=== PATIENT | female | born 1940 | race Caucasian/White ===

== ENCOUNTER → 2016-11-06 | Outpatient (REF) | payer OTHER ==
[~2016-11-06] MED LIST: /HCTZ25TA PO; ASPI325T PO; FOSI20TA2 PO; MELO7.5T3 PO; MULTTAB48 PO; MULTTAB63 PO; VYTO10TA41 PO
[2016-11-06 12:08] LABS: BASO % 0.3 % (0.0-1.0); EOS # 0.1 K/mm3 (0.0-0.50); EOS % 1.1 % (0.0-3.0); LARGE UNSTAINED CELL # 0.1 K/mm3 (0.0-0.4); LYMPH # 2.4 K/mm3 (1.5-4.5); LYMPH % 21.3 % (24.0-44.0); MEAN CORPUSCULAR HEMOGLOBIN 31.8 pg (27.0-33.0); MEAN CORPUSCULAR HGB CONC 33.3 g/dl (32.0-36.5); MEAN CORPUSCULAR VOLUME 95.4 fl (80.0-96.0); MONO # 0.5 K/mm3 (0.0-0.8); MONO % 4.2 % (0.0-5.0); NEUTROPHILS # 7.8 K/mm3 (1.8-7.7); NEUTROPHILS % 72.1 % (36.0-66.0); PLATELET COUNT, AUTOMATED 220 k/mm3 (150-450); RED CELL DISTRIBUTION WIDTH 13.9 % (11.5-14.5); WHITE BLOOD COUNT 10.8 K/mm3 (4.0-10.0)
[2016-11-06 13:52] LABS: ALBUMIN 3.8 GM/DL (3.2-5.2); ALBUMIN/GLOBULIN RATIO 1.03 (1.00-1.93); BILIRUBIN,TOTAL 0.6 MG/DL (0.2-1.0); CALCIUM LEVEL 10.2 MG/DL (8.8-10.2); CREATININE FOR GFR 1.42 MG/DL (0.55-1.02); GLOMERULAR FILTRATION RATE 38.1 (>39); MAGNESIUM LEVEL 2.1 MG/DL (1.8-2.4); PERCENT SATURATION 33.7 % (13.2-37.4); POTASSIUM SERUM 3.8 MEQ/L (3.5-5.1); TOTAL PROTEIN 7.5 GM/DL (6.4-8.2)
== END ==
LOC: M SFHCPLAZ 09:09
PROVIDERS: ATTEND Family Medicine
DX: I12.9 Hypertensive chronic kidney disease with stage 1 through stage 4 chronic kidney disease, or unspecified chronic kidney disease (principal); I50.9 Heart failure, unspecified; N18.3 Chronic kidney disease, stage 3 (moderate); E55.9 Vitamin D deficiency, unspecified
CPT/HCPCS: 36415; 80053; 82306; 82728; 83550; 83735; 83880; 83970; 85025; G0463

== ENCOUNTER → 2017-04-01 | Outpatient (REF) | payer OTHER ==
[2017-04-01 11:58] LABS: BASO % 0.3 % (0.0-1.0); EOS # 0.1 K/mm3 (0.0-0.50); LARGE UNSTAINED CELL # 0.1 K/mm3 (0.0-0.4); LARGE UNSTAINED CELL % 0.9 % (0.0-4.0); LYMPH # 2.8 K/mm3 (1.5-4.5); LYMPH % 26.2 % (24.0-44.0); MEAN CORPUSCULAR HEMOGLOBIN 32.1 pg (27.0-33.0); MEAN CORPUSCULAR HGB CONC 33.8 g/dl (32.0-36.5); MEAN CORPUSCULAR VOLUME 94.9 fl (80.0-96.0); MONO # 0.4 K/mm3 (0.0-0.8); MONO % 4.1 % (0.0-5.0); NEUTROPHILS # 6.9 K/mm3 (1.8-7.7); NEUTROPHILS % 67.5 % (36.0-66.0); PLATELET COUNT, AUTOMATED 251 k/mm3 (150-450); RED CELL DISTRIBUTION WIDTH 13.6 % (11.5-14.5); WHITE BLOOD COUNT 10.2 K/mm3 (4.0-10.0)
[2017-04-01 12:42] LABS: ALBUMIN 3.7 GM/DL (3.2-5.2); BILIRUBIN,TOTAL 0.7 MG/DL (0.2-1.0); CREATININE FOR GFR 1.23 MG/DL (0.55-1.02); GLOMERULAR FILTRATION RATE 44.8 (>39); POTASSIUM SERUM 4.3 MEQ/L (3.5-5.1); TOTAL PROTEIN 7.4 GM/DL (6.4-8.2)
== END ==
LOC: M SFHCPLAZ 09:03
PROVIDERS: ATTEND Family Medicine
DX: R73.01 Impaired fasting glucose (principal); I12.9 Hypertensive chronic kidney disease with stage 1 through stage 4 chronic kidney disease, or unspecified chronic kidney disease; N18.3 Chronic kidney disease, stage 3 (moderate)
CPT/HCPCS: 36415; 80053; 82607; 83036; 83970; 85025; G0463

== ENCOUNTER → 2017-08-02 | Outpatient (REF) | payer OTHER ==
[~2017-08-02] MED LIST changes: +AMLO2.5T PO; +AMLO5TAB2; +ASPI81CH PO; +ATOR40TA75 PO; +CIPR500T3 PO; +ELIQ5TAB PO; +FLAG500T PO; +FOSI40TA PO; +FURO40TA2 PO; +HYDR-3713 PO; +METO1TAB32 PO; +METO1TAB87 PO; +POTA10TA16 PO; +RA A; +VITA200015 PO; +VITMTA PO
[2017-08-02 16:21] LABS: BASO % 0.4 % (0.0-1.0); EOS # 0.1 10^3/uL (0.0-0.50); EOS % 0.9 % (0.0-3.0); IMMATURE GRANULOCYTE % 0.3 % (0-0); LYMPH # 3.1 10^3/uL (1.5-4.5); LYMPH % 29.7 % (24.0-44.0); MEAN CORPUSCULAR HEMOGLOBIN 30.9 pg (27.0-33.0); MEAN CORPUSCULAR HGB CONC 32.9 g/dl (32.0-36.5); MONO # 0.8 10^3/uL (0.0-0.8); MONO % 7.6 % (0.0-5.0); NEUTROPHILS # 6.5 10^3/uL (1.8-7.7); NEUTROPHILS % 61.1 % (36.0-66.0); PLATELET COUNT, AUTOMATED 298 10^3/uL (150-450); RED CELL DISTRIBUTION WIDTH 13.4 % (11.5-14.5); WHITE BLOOD COUNT 10.6 10^3/uL (4.0-10.0)
[2017-08-02 17:06] LABS: ALBUMIN 3.5 GM/DL (3.2-5.2); ALKALINE PHOSPHATASE 109 U/L (45-117); ALT/SGPT 18 U/L (12-78); ANION GAP 10 MEQ/L (8-16); AST/SGOT 14 U/L (7-37); BILIRUBIN,TOTAL 0.5 MG/DL (0.2-1.0); BLOOD UREA NITROGEN 26 MG/DL (7-18); CALCIUM LEVEL 9.7 MG/DL (8.8-10.2); CARBON DIOXIDE LEVEL 27 MEQ/L (21-32); CHLORIDE LEVEL 101 MEQ/L (98-107); CHOLESTEROL LEVEL 162 MG/DL (<200); CREATININE FOR GFR 1.24 MG/DL (0.55-1.02); FREE T4 1.29 NG/DL (0.76-1.46); GLOMERULAR FILTRATION RATE 44.4 (>39); GLUCOSE, FASTING 101 MG/DL (83-110); MAGNESIUM LEVEL 2.1 MG/DL (1.8-2.4); POTASSIUM SERUM 3.9 MEQ/L (3.5-5.1); SODIUM LEVEL 138 MEQ/L (136-145); TRIGLYCERIDES LEVEL 68 MG/DL (<150)
[2017-08-06 10:59] LABS: ALBUMIN 3.61 GM/DL (3.29-5.55); ALBUMIN % 51.6 % (55.8-66.1); GAMMA GLOBULIN % 16.5 % (11.1-18.8)
== END ==
LOC: M SFHCPLAZ 14:43
PROVIDERS: ATTEND Family Medicine
DX: E78.2 Mixed hyperlipidemia (principal); D75.89 Other specified diseases of blood and blood-forming organs; I50.9 Heart failure, unspecified; Z23 Encounter for immunization
CPT/HCPCS: 36415; 80053; 80061; 82550; 83735; 83880; 84165; 84439; 84443; 85025; 86140; 86334; 90662; G0463

== ENCOUNTER → 2017-08-06 | Outpatient (REF) | payer OTHER ==
[2017-08-06 16:28] LABS: ALBUMIN 3.8 GM/DL (3.2-5.2); ANION GAP 9 MEQ/L (8-16); BLOOD UREA NITROGEN 42 MG/DL (7-18); CALCIUM LEVEL 10.1 MG/DL (8.8-10.2); CARBON DIOXIDE LEVEL 32 MEQ/L (21-32); CHLORIDE LEVEL 98 MEQ/L (98-107); CREATININE FOR GFR 1.52 MG/DL (0.55-1.02); GLOMERULAR FILTRATION RATE 35.1 (>39); GLUCOSE, FASTING 112 MG/DL (83-110); MAGNESIUM LEVEL 2.4 MG/DL (1.8-2.4); PHOSPHORUS LEVEL 3.8 MG/DL (2.5-4.9); POTASSIUM SERUM 3.5 MEQ/L (3.5-5.1); SODIUM LEVEL 139 MEQ/L (136-145)
== END ==
LOC: M SFHCPLAZ 14:11
PROVIDERS: ATTEND Family Medicine
DX: I48.91 Unspecified atrial fibrillation (principal)
CPT/HCPCS: 36415; 80069; 82550; 82553; 83735; 83880; 84484; 93005; G0463

== ENCOUNTER → 2017-08-09 | Outpatient (REF) | payer OTHER ==
[~2017-08-09] MED LIST changes: -CIPR500T3 PO; -FLAG500T PO; -METO1TAB32 PO
[2017-08-09 14:17] LABS: BASO % 0.4 % (0.0-1.0); EOS # 0.1 10^3/uL (0.0-0.50); EOS % 0.6 % (0.0-3.0); IMMATURE GRANULOCYTE % 0.2 % (0-0); LYMPH # 3.4 10^3/uL (1.5-4.5); LYMPH % 30.7 % (24.0-44.0); MEAN CORPUSCULAR HEMOGLOBIN 30.9 pg (27.0-33.0); MEAN CORPUSCULAR HGB CONC 33.6 g/dl (32.0-36.5); MONO # 0.8 10^3/uL (0.0-0.8); NEUTROPHILS # 6.7 10^3/uL (1.8-7.7); NEUTROPHILS % 61.1 % (36.0-66.0); PLATELET COUNT, AUTOMATED 297 10^3/uL (150-450); RED CELL DISTRIBUTION WIDTH 13.5 % (11.5-14.5)
[2017-08-09 14:45] LABS: ALBUMIN 3.6 GM/DL (3.2-5.2); CALCIUM LEVEL 10.1 MG/DL (8.8-10.2); CREATININE FOR GFR 1.49 MG/DL (0.55-1.02); GLOMERULAR FILTRATION RATE 35.9 (>39); MAGNESIUM LEVEL 2.5 MG/DL (1.8-2.4); PERCENT SATURATION 18.2 % (13.2-45.0); PHOSPHORUS LEVEL 3.5 MG/DL (2.5-4.9); POTASSIUM SERUM 3.4 MEQ/L (3.5-5.1)
== END ==
LOC: M SFHCPLAZ 13:24
PROVIDERS: ATTEND Family Medicine
DX: D75.89 Other specified diseases of blood and blood-forming organs (principal); I12.9 Hypertensive chronic kidney disease with stage 1 through stage 4 chronic kidney disease, or unspecified chronic kidney disease; N18.3 Chronic kidney disease, stage 3 (moderate); I25.10 Atherosclerotic heart disease of native coronary artery without angina pectoris; I50.9 Heart failure, unspecified; I49.9 Cardiac arrhythmia, unspecified; E78.2 Mixed hyperlipidemia; M19.019 Primary osteoarthritis, unspecified shoulder; R73.01 Impaired fasting glucose; E55.9 Vitamin D deficiency, unspecified; E66.9 Obesity, unspecified; R27.0 Ataxia, unspecified
CPT/HCPCS: 80069; 82728; 83550; 83735; 85025; G0463

== ENCOUNTER 2017-08-18 17:52 | Inpatient (IN) | payer OTHER ==
[~2017-08-18] VITALS: Ht 152.4 cm; Wt 86.9 kg
[~2017-08-18 17:52] MED LIST changes: -AMLO2.5T PO; -AMLO5TAB2; -ASPI81CH PO; -ATOR40TA75 PO; -ELIQ5TAB PO; -FOSI40TA PO; -FURO40TA2 PO; -HYDR-3713 PO; -METO1TAB87 PO; -POTA10TA16 PO; -RA A; -VITA200015 PO; -VITMTA PO
[2017-08-18] MEDS ORDERED: FURO40TA2 PO (18:06)
[2017-08-18] MEDS ORDERED: ELIQ5TAB PO (18:06)
[2017-08-18] MEDS ORDERED: ATOR40TA75 PO (18:06)
[2017-08-18] MEDS ORDERED: RA A (18:06)
[2017-08-18] MEDS ORDERED: HYDR-3713 PO (18:06)
[2017-08-18] MEDS ORDERED: METO1TAB87 PO (18:06)
[2017-08-18] MEDS ORDERED: AMLO5TAB2 (18:06)
[2017-08-18] MEDS ORDERED: POTA10TA16 PO (18:06)
[2017-08-18] MEDS ORDERED: AMLO2.5T PO (18:06)
[2017-08-18 18:29] LABS: BASO % 0.3 % (0.0-1.0); EOS # 0.1 10^3/uL (0.0-0.50); EOS % 0.6 % (0.0-3.0); IMMATURE GRANULOCYTE % 0.3 % (0-0); LYMPH # 2.7 10^3/uL (1.5-4.5); LYMPH % 23.8 % (24.0-44.0); MEAN CORPUSCULAR HEMOGLOBIN 30.8 pg (27.0-33.0); MEAN CORPUSCULAR HGB CONC 33.9 g/dl (32.0-36.5); MEAN CORPUSCULAR VOLUME 90.9 fl (80.0-96.0); MONO # 0.9 10^3/uL (0.0-0.8); MONO % 7.6 % (0.0-5.0); NEUTROPHILS # 7.5 10^3/uL (1.8-7.7); NEUTROPHILS % 67.4 % (36.0-66.0); PLATELET COUNT, AUTOMATED 264 10^3/uL (150-450); RED CELL DISTRIBUTION WIDTH 13.3 % (11.5-14.5); WHITE BLOOD COUNT 11.1 10^3/uL (4.0-10.0)
[2017-08-18 18:38] LABS: INR 1.33
[2017-08-18 18:51] LABS: ALBUMIN 3.3 GM/DL (3.2-5.2); ALBUMIN/GLOBULIN RATIO 0.8 (1.00-1.93); BILIRUBIN,DIRECT 0.1 MG/DL (0.0-0.2); BILIRUBIN,TOTAL 0.5 MG/DL (0.2-1.0); CALCIUM LEVEL 9.8 MG/DL (8.8-10.2); CREATININE FOR GFR 1.25 MG/DL (0.55-1.02); POTASSIUM SERUM 3.9 MEQ/L (3.5-5.1); TOTAL PROTEIN 7.4 GM/DL (6.4-8.2)
[2017-08-18] MEDS ORDERED: ISOVUE-370 76% 100ML VIAL (Q9967) As Ordered ONE (18:51)
--- NOTE | 2017-08-18 19:19 | REP ---
Clinical: Left-sided abdominal and flank pain. Technique: Axial contrast enhanced images from the lung bases to the pubic symphysis using 100 ml Isovue 370 intravenous contrast material with coronal and sagittal re-formations. Findings: Lung bases demonstrate minimal chronic and dependent changes without pleural effusion. Cardiomegaly is appreciated without pericardial effusion. Liver, spleen, pancreas, bilateral adrenal glands and kidneys are essentially normal. 1.2 cm left renal hypodensities compatible with cyst. Cholelithiasis noted without CT evidence for acute cholecystitis. There is no evidence for bowel obstruction. Diffuse colonic and sigmoid diverticulosis noted along with mural thickening of the mid sigmoid colon which may reflect early acute diverticulitis versus chronic changes related to prior diverticulitis. No associated ascites or drainable collection. No free air. No significant intraperitoneal or retroperitoneal adenopathy is appreciated. Pelvis demonstrates normal bladder and evidence for prior hysterectomy. Musculoskeletal structures demonstrate age-related degenerative changes without focal osseous abnormality. Atherosclerotic changes of the aorta and vasculature without aneurysm or dissection. Impression: 1. Diffuse diverticulosis along with mural thickening to the midsigmoid colon may reflect chronic changes related to prior diverticulitis versus early sigmoid diverticulitis and correlation is recommended. No associated free fluid or drainable collection. No perforation or obstruction. 2. Cholelithiasis. 3. 1.2 cm left renal cyst. 4. Further chronic changes as described above. Signed by Berny Davis MD 08/18/2017 07:10 P
[2017-08-18] MEDS ORDERED: ONDANSETRON 4MG/2ML VIAL (J2405) IV ONE (20:00)
[2017-08-18] MEDS ORDERED: metroNIDAZOLE 500 MG in APPROPRIATE DILUENT 1 EA IV ONE (20:00)
[2017-08-18] MEDS ORDERED: MORPHINE 2 MG/ML 1ML SYRINGE IV ONE (20:00)
[2017-08-18] MEDS ORDERED: CIPROFLOXACIN 400 MG in APPROPRIATE DILUENT 1 EA IV ONE (20:00)
[2017-08-18] MEDS ORDERED: ASPI81CH PO (21:26)
[2017-08-18] MEDS ORDERED: FOSI40TA PO (21:26)
[2017-08-18] MEDS ORDERED: VITMTA PO (21:26)
[2017-08-18] MEDS ORDERED: VITA200015 PO (21:27)
[2017-08-18] MEDS ORDERED: NS 500 ML IV ONE (22:00)
[2017-08-18] MEDS ORDERED: PIPERACILLIN/TAZOBACTAM SOD 3.375 GM in APPROPRIATE DILUENT 1 EA IV ONE (23:15)
[2017-08-18 23:59] VITALS: BP 108/73
--- NOTE | 2017-08-19 00:48 | HPE ---
DATE OF ADMISSION: 08/18/2017 The patient, Rosaura Krishna, is a 77-year-old female. The patient comes in with chief complaint of abdominal pain. Patient notes she has been having some abdominal pain for the last couple of days. She says that it has been going on more generally for the last week; however, it has gotten much worse in the last day on the left side. Patient's CT shows diverticulitis. Patient being admitted for, however, orthostatic hypotension. Patient says their belly hurts so they are unable to walk and unable to go home. Patient denies any blood in stool, any vomiting, nausea, constipation or diarrhea. Patient without any constitutional symptoms at this time. REVIEW OF SYSTEMS: Patient notes that her other acute complaints are that it hurts her to walk with the abdominal pain, so she is unable to walk. No other acute complaints. Patient's past medical history includes hypertension, first-degree atrioventricular (AV) block, coronary artery disease, hyperlipidemia, bilateral knee arthritis, impaired fasting glucose, mitral regurgitation. The patient is a nonsmoker, does not drink or use drugs. Patient does not note any significant family history. PHYSICAL EXAMINATION: Patient is resting comfortably when I came in. Vital signs: 97.7 temperature, pulse is 88, respiratory rate 18, blood pressure 143/89, pulse oximetry is 95% on room air. Patient is alert and oriented times three with normal affect and normal mood. Cranial nerves II-XII grossly intact. Patient unable to see with left eye. Patient with good sight in right eye. Patient with grossly normal hearing. ENT normal to inspection. Neck is without rigidity. No meningeal signs. Abdomen is soft, some tenderness on the left. No rigidity or guarding. Patient with strength 5/5 in all four extremities. LABORATORY RESULTS: WBC 11.1, hemoglobin and hematocrit and platelets within normal limits. Coagulation shows PT 16.8, INR 1.33, aPTT 33.7. Chemistry shows sodium 135, potassium 3.9, chloride 97, carbon dioxide 30, BUN/creatinine 29/1.25, fasting glucose is 121, lactic acid 2.0. Urinalysis consistent with a UTI. WBC 58, urine leukocyte esterase is +3, nitrites negative. IMAGING: Abdominal, pelvic CT: Diffuse diverticulosis along with mural thickening of the midsigmoid colon may reflect chronic changes related to prior diverticulitis versus early sigmoid diverticulitis and correlation is recommended. No associated free fluid or drainable collection. No perforation or obstruction, cholelithiasis, 1.2 cm left renal cyst. Further chronic changes as described. ASSESSMENT AND PLAN: Patient is a 77-year-old female with previous medical history noted above, who comes in with complaints of abdominal pain and difficulty ambulating secondary to abdominal pain. Patient to be admitted under the impression of diverticulitis with the added impression of urinary tract infection. Patient started on Cipro, Flagyl. Will continue that. Should give reasonable coverage to both urinary tract infection (UTI) and diverticulitis. Intravenous (IV) fluids to treat patient's orthostatic hypotension to be started in the emergency department (ED) to be continued. Patient does not meet sepsis criteria. Will hold patient's hypertensive medications at this time secondary to orthostatic hypotension. Diuretics to be held secondary to hypotension. Continue patient's home Eliquis. Will also serve as deep venous thrombosis (DVT) prophylaxis. Patient is unclear why she is taking it. This may be secondary to patient's coronary artery disease versus other possible reasons. Patient's family medicine team will be taking over in the morning. They have access to patient's outpatient records, may be able to shed light on issue. Hyperlipidemia. Continue patient's statins. DVT prophylaxis. On Eliquis as noted above. Gastrointestinal (GI) prophylaxis. Proton pump inhibitors (PPIs). Patient to be held for continued observation. Continue IV antibiotics for now. May switch to orals. Discharge on orals when patient able to walk.
[2017-08-19] MEDS: NS 1,000 ML IV SCH ×3 (01:02→22:40)
[2017-08-19 06:00] VITALS: BP 117/61
[2017-08-19 07:31] LABS: ALBUMIN 2.7 GM/DL (3.2-5.2); ALBUMIN/GLOBULIN RATIO 0.87 (1.00-1.93); BILIRUBIN,TOTAL 0.7 MG/DL (0.2-1.0); CALCIUM LEVEL 9.2 MG/DL (8.8-10.2); CREATININE FOR GFR 1.14 MG/DL (0.55-1.02); GLOMERULAR FILTRATION RATE 48.9 (>39); POTASSIUM SERUM 3.8 MEQ/L (3.5-5.1); TOTAL PROTEIN 5.8 GM/DL (6.4-8.2)
[2017-08-19 07:52] VITALS: BP 129/69
[2017-08-19 08:00] VITALS: BP 129/69
[2017-08-19] MEDS ORDERED: CIPROFLOXACIN 400 MG in APPROPRIATE DILUENT 1 EA IV ONE (09:00)
--- NOTE | 2017-08-19 09:13 | ECGEPIP ---
Stationary ECG Study [facility] - ED Test Date: 2017-08-18 Pat Name: OMI SAENZ Department: Room: [place] [address] Gender: F Medic Technician: hermes : [id number] Requested By: RENETTA Veronica Order Number: [id number] Reading MD: Quinton Bryan Measurements Intervals [place] Rate: 84 P: AK: 0 QRS: 22 QRSD: 87 T: 13 QT: 382 QTc: 454 Interpretive Statements ATRIAL FIBRILLATION WITH ABERRANT CONDUCTION OR VENTRICULAR PREMATURE COMPLEXES LOW QRS VOLTAGE IN PRECORDIAL LEADS POOR R WAVE PROGRESSION RHYTHM CHANGE COMPARED TO 07/11/12 Electronically Signed On 08-19-2017 9:13:26 EST by Quinton Bryan
[2017-08-19] MEDS ORDERED: ACETAMINOPHEN TAB 650MG DOSE (2X325MG) PO PRN (09:45)
--- NOTE | 2017-08-19 09:58 | IPNPDOC ---
Subjective Date Seen The patient was seen on 08/19/17. Subjective Chief Complaint/HPI The patient is a 77-year-old female admitted with a reason for visit of Left Flank Pain. Constitutional: Denies: Chills ENT: Denies: Head Aches Pulmonary: Denies: Dyspnea, Cough Cardiovascular: Denies: Chest Pain, Palpitations Gastrointestinal: Reports: Abdominal Pain Genitourinary: Denies: Dysuria, Frequency Musculoskeletal: Reports: Leg Pain (calf pain/spasm) Psych: Reports: Mood Normal Objective Physical Examination General Exam: Positive: Alert, Cooperative ENT Exam: Positive: Atraumatic Neck Exam: Positive: Supple, Negative: thyromegaly Chest Exam: Positive: Clear to auscultation Heart Exam: Positive: Rate Normal, Normal S1, Normal S2, Negative: Murmurs Abdomen Exam: Positive: BS Hypoactive, Tenderness (mildly diffusely, but especially RLQ and LUQ, not distended. no rebound tenderness and no heel tap tenderness) Skin Exam: Negative: Rash Psych Exam: Positive: Mental status NL Assessment /Plan Problems (1) Diverticulitis Status: Acute Response to Treatment: Stable Problem Text: will allow diet. IV metronidazole and cipro. monitor for improvement. if not able to ambulate and change to po meds for discharge then will need status change to "acute" tomorrow. (2) Inability to walk Status: Acute Problem Text: she has lumbar scoliosis. no localizing pain to palpation. able to move legs, toes w/o evidence for muscular weakness. limited it seems by abdominal discomfort (3) UTI (urinary tract infection) Status: Acute Response to Treatment: Stable Problem Text: culture pending. on cipro and flagyl for diverticulitis. cipro will likely cover. she denies dysuria Plan/VTE VTE Prophylaxis Ordered?: Yes Plan Diet: Continue Current Therapy: PT Medications: Start Antibiotics Diagnostics: Check Labs Anticipated Discharge: Home VS, I&O, 24H, [facility]onica Vital Signs/I&O Vital Signs Date Time Temp Pulse Resp B/P (MAP) Pulse Ox O2 Delivery O2 Flow Rate FiO2 08/19/17 07:52 98.7 79 16 129/69 (89) Room Air 08/19/17 06:00 96 I&O- Last 24 Hours up to 6 AM 08/20/17 06:00 Intake Total 500 ml Balance 500 ml Laboratory Data 24H LABS Laboratory Tests 2 08/18/17 18:17: Immature Granulocyte % (Auto) 0.3H, White Blood Count 11.1H, Red Blood Count 4.06, Hemoglobin 12.5, Hematocrit 36.9, Mean Corpuscular Volume 90.9, Mean Corpuscular Hemoglobin 30.8, Mean Corpuscular Hemoglobin Concent 33.9, Red Cell Distribution Width 13.3, Platelet Count 264, Neutrophils (%) (Auto) 67.4H, Lymphocytes (%) (Auto) 23.8L, Monocytes (%) (Auto) 7.6H, Eosinophils (%) (Auto) 0.6, Basophils (%) (Auto) 0.3, Neutrophils # (Auto) 7.5, Lymphocytes # (Auto) 2.7, Monocytes # (Auto) 0.9H, Eosinophils # (Auto) 0.1, Basophils # (Auto) 0.0, Immature Granulocyte # (Auto) 0.0, Nucleated Red Blood Cells % (auto) 0.0, Prothrombin Time 16.8H, Prothromb Time International Ratio 1.33, Activated Partial Thromboplast Time 33.7, Anion Gap 8, Glomerular Filtration Rate 44.0, Lactic Acid Level 2.0, Calcium Level 9.8, Aspartate Amino Transf (AST/SGOT) 11, Alanine Aminotransferase (ALT/SGPT) 16, Alkaline Phosphatase 104, Total Bilirubin 0.5, Direct Bilirubin 0.1, Total Protein 7.4, Albumin 3.3, Albumin/ Globulin Ratio 0.80L, Lipase 150 08/18/17 19:57: Urine Appearance HAZY, Urine Color YELLOW, Urine pH 6.0, Urine Specific Andrews 1.019, Urine Protein NEGATIVE, Urine Glucose (UA) NEGATIVE, Urine Ketones NEGATIVE, Urine Urobilinogen 0.2, Urine Bilirubin NEGATIVE, Urine Leukocyte Esterase 3+H, Urine Blood NEGATIVE, Urine Nitrite NEGATIVE, Urine WBC (Auto) 58H , Urine RBC (Auto) 5H, Urine Hyaline Casts (Auto) 1, Urine Bacteria (Auto) 1+H, Urine Squamous Epithelial Cells 3, Urine Amorphous Sediment SMALLH, Urine Mucus (Auto) SMALL, Urine Sperm (Auto) 08/19/17 06:15: Anion Gap 8, Glomerular Filtration Rate 48.9, Calcium Level 9.2, Aspartate Amino Transf (AST/SGOT) 11, Alanine Aminotransferase (ALT/SGPT) 11L, Alkaline Phosphatase 91, Total Bilirubin 0.7, Total Protein 5.8#L, Albumin 2.7L, Albumin/ Globulin Ratio 0.87L, Blood Urea Nitrogen 20H, Creatinine 1.14H, Sodium Level 140, Potassium Level 3.8, Chloride Level 103, Carbon Dioxide Level 29 CBC/BMP Laboratory Tests 08/18/17 18:17 Red Blood Count 4.06, Mean Corpuscular Volume 90.9, Mean Corpuscular Hemoglobin 30.8, Mean Corpuscular Hemoglobin Concent 33.9, Red Cell Distribution Width 13.3 , Neutrophils (%) (Auto) 67.4 H, Lymphocytes (%) (Auto) 23.8 L, Monocytes (%) ( Auto) 7.6 H, Eosinophils (%) (Auto) 0.6, Basophils (%) (Auto) 0.3, Neutrophils # (Auto) 7.5, Lymphocytes # (Auto) 2.7, Monocytes # (Auto) 0.9 H, Eosinophils # (Auto) 0.1, Basophils # (Auto) 0.0 08/19/17 06:15 Calcium Level 9.2, Aspartate Amino Transf (AST/SGOT) 11, Alanine Aminotransferase (ALT/SGPT) 11 L, Alkaline Phosphatase 91, Total Bilirubin 0.7, Total Protein 5.8 #L, Albumin 2.7 L Nolan Maciel MD Aug 19, 2017 09:58
[2017-08-19] MEDS: MULTIVITAMINS/MINERALS THERAP 1 TAB PO SCH (10:11)
[2017-08-19] MEDS: POTASSIUM CHLORIDE 10 MEQ SR TABLET PO SCH ×2 (10:12→18:23)
[2017-08-19] MEDS: VITAMIN D 1,000 INTERNATIONAL UNITS TABLET PO SCH (10:12)
[2017-08-19] MEDS: ASPIRIN 81 MG CHEW TABLET PO SCH (10:12)
[2017-08-19] MEDS: APIXABAN 5 MG TAB (ELIQUIS) PO SCH ×2 (10:13→20:13)
[2017-08-19] MEDS: ATORVASTATIN 20 MG TAB PO SCH (10:13)
[2017-08-19] MEDS: NYSTATIN 100,000 UNITS/GM TOPICAL PWD 15 GM TOP SCH ×2 (10:36→20:13)
[2017-08-19] MEDS: metroNIDAZOLE 500 MG in APPROPRIATE DILUENT 1 EA IV SCH ×2 (11:59→18:23)
[2017-08-19 14:45] VITALS: BP 114/74
[2017-08-19 22:00] VITALS: BP 133/93
[2017-08-19] MEDS: CIPROFLOXACIN 400 MG in APPROPRIATE DILUENT 1 EA IV SCH (22:40)
[2017-08-20] MEDS: metroNIDAZOLE 500 MG in APPROPRIATE DILUENT 1 EA IV SCH ×2 (03:33→12:11)
[2017-08-20 06:00] VITALS: BP 120/85
[2017-08-20 07:43] LABS: BASO % 0.4 % (0.0-1.0); EOS # 0.1 10^3/uL (0.0-0.50); EOS % 1.3 % (0.0-3.0); IMMATURE GRANULOCYTE % 0.1 % (0-0); LYMPH # 1.7 10^3/uL (1.5-4.5); LYMPH % 22.1 % (24.0-44.0); MEAN CORPUSCULAR HEMOGLOBIN 31.3 pg (27.0-33.0); MEAN CORPUSCULAR HGB CONC 33.2 g/dl (32.0-36.5); MEAN CORPUSCULAR VOLUME 94.2 fl (80.0-96.0); MONO # 0.5 10^3/uL (0.0-0.8); MONO % 6.9 % (0.0-5.0); NEUTROPHILS # 5.4 10^3/uL (1.8-7.7); NEUTROPHILS % 69.2 % (36.0-66.0); PLATELET COUNT, AUTOMATED 211 10^3/uL (150-450); RED CELL DISTRIBUTION WIDTH 13.6 % (11.5-14.5); WHITE BLOOD COUNT 7.8 10^3/uL (4.0-10.0)
[2017-08-20 08:08] LABS: ALBUMIN 2.6 GM/DL (3.2-5.2); ALBUMIN/GLOBULIN RATIO 0.87 (1.00-1.93); ALKALINE PHOSPHATASE 77 U/L (45-117); ALT/SGPT 11 U/L (12-78); ANION GAP 7 MEQ/L (8-16); AST/SGOT 12 U/L (7-37); BILIRUBIN,TOTAL 0.5 MG/DL (0.2-1.0); BLOOD UREA NITROGEN 15 MG/DL (7-18); CALCIUM LEVEL 8.5 MG/DL (8.8-10.2); CARBON DIOXIDE LEVEL 28 MEQ/L (21-32); CHLORIDE LEVEL 105 MEQ/L (98-107); CREATININE FOR GFR 0.89 MG/DL (0.55-1.02); GLOMERULAR FILTRATION RATE > 60.0 (>39); GLUCOSE, FASTING 102 MG/DL (83-110); SODIUM LEVEL 140 MEQ/L (136-145); TOTAL PROTEIN 5.6 GM/DL (6.4-8.2)
--- NOTE | 2017-08-20 08:53 | IPNPDOC ---
Subjective Date Seen The patient was seen on 08/20/17. Subjective Chief Complaint/HPI The patient is a 77-year-old female admitted with a reason for visit of Left Flank Pain. Events since last encounter Tolerating small meals. Abd pain improving. No BM since admission Constitutional: Denies: Chills, Fever Pulmonary: Denies: Dyspnea, Cough Cardiovascular: Denies: Chest Pain, Palpitations, Orthopnea Gastrointestinal: Reports: Abdominal Pain (mild), Denies: Nausea, Vomiting, Diarrhea, Constipation Objective Physical Examination General Exam: Positive: Alert, Cooperative Chest Exam: Positive: Clear to auscultation Heart Exam: Positive: Rate Normal, Normal S1, Normal S2, Negative: Murmurs Abdomen Exam: Positive: BS Hypoactive, Negative: Tenderness Skin Exam: Negative: Rash Psych Exam: Positive: Mental status NL Assessment /Plan Problems (1) Diverticulitis Status: Acute Response to Treatment: Stable Problem Text: Tolerating diet. Remains on IV metronidazole and cipro. May be reasonable to change to po today and see how she does (2) Inability to walk Status: Acute Problem Text: She is working with PT. Still feels a little unsteady See how she does today and consider d/c in am. she has lumbar scoliosis. no localizing pain to palpation. able to move legs, toes w/o evidence for muscular weaknes (3) UTI (urinary tract infection) Status: Acute Response to Treatment: Stable Problem Text: culture pending. on cipro and flagyl for diverticulitis. cipro will likely cover. she denies dysuria Plan/VTE VTE Prophylaxis Ordered?: Yes Plan Diet: Continue Current Therapy: PT Medications: Start Antibiotics Diagnostics: Check Labs Anticipated Discharge: Home VS, I&O, 24H, [facility] Vital Signs/I&O Vital Signs Date Time Temp Pulse Resp B/P (MAP) Pulse Ox O2 Delivery O2 Flow Rate FiO2 08/20/17 06:00 97.1 88 16 120/85 (97) 93 Room Air I&O- Last 24 Hours up to 6 AM 08/21/17 06:00 Intake Total 1200 ml Balance 1200 ml Laboratory Data 24H LABS Laboratory Tests 2 08/20/17 06:44: Immature Granulocyte % (Auto) 0.1H, White Blood Count 7.8, Red Blood Count 3.26L , Hemoglobin 10.2#L, Hematocrit 30.7L, Mean Corpuscular Volume 94.2, Mean Corpuscular Hemoglobin 31.3, Mean Corpuscular Hemoglobin Concent 33.2, Red Cell Distribution Width 13.6, Platelet Count 211, Neutrophils (%) (Auto) 69.2H, Lymphocytes (%) (Auto) 22.1L, Monocytes (%) (Auto) 6.9H, Eosinophils (%) (Auto) 1.3, Basophils (%) (Auto) 0.4, Neutrophils # (Auto) 5.4, Lymphocytes # (Auto) 1.7, Monocytes # (Auto) 0.5, Eosinophils # (Auto) 0.1, Basophils # (Auto) 0.0, Immature Granulocyte # (Auto) 0.0, Nucleated Red Blood Cells % (auto) 0.0, Anion Gap 7L, Glomerular Filtration Rate > 60.0, Blood Urea Nitrogen 15, Creatinine 0.89, Sodium Level 140, Potassium Level 4.0, Chloride Level 105, Carbon Dioxide Level 28, Calcium Level 8.5L, Aspartate Amino Transf (AST/SGOT) 12, Alanine Aminotransferase (ALT/SGPT) 11L, Alkaline Phosphatase 77, Total Bilirubin 0.5, Total Protein 5.6L, Albumin 2.6L, Albumin/Globulin Ratio 0.87L CBC/BMP Laboratory Tests 08/20/17 06:44 Red Blood Count 3.26 L, Mean Corpuscular Volume 94.2, Mean Corpuscular Hemoglobin 31.3, Mean Corpuscular Hemoglobin Concent 33.2, Red Cell Distribution Width 13.6, Neutrophils (%) (Auto) 69.2 H, Lymphocytes (%) (Auto) 22.1 L, Monocytes (%) (Auto) 6.9 H, Eosinophils (%) (Auto) 1.3, Basophils (%) ( Auto) 0.4, Neutrophils # (Auto) 5.4, Lymphocytes # (Auto) 1.7, Monocytes # (Auto ) 0.5, Eosinophils # (Auto) 0.1, Basophils # (Auto) 0.0, Calcium Level 8.5 L, Aspartate Amino Transf (AST/SGOT) 12, Alanine Aminotransferase (ALT/SGPT) 11 L, Alkaline Phosphatase 77, Total Bilirubin 0.5, Total Protein 5.6 L, Albumin 2.6 L KIRK DIXON PA-C Aug 20, 2017 08:53
[2017-08-20] MEDS ORDERED: PREVNAR 13 VACCINE SYRINGE (CPT CODE:90670) IM ONE (09:00)
[2017-08-20] MEDS: APIXABAN 5 MG TAB (ELIQUIS) PO SCH ×2 (10:45→18:19)
[2017-08-20] MEDS: ASPIRIN 81 MG CHEW TABLET PO SCH (10:45)
[2017-08-20] MEDS: MULTIVITAMINS/MINERALS THERAP 1 TAB PO SCH (10:45)
[2017-08-20] MEDS: ATORVASTATIN 20 MG TAB PO SCH (10:45)
[2017-08-20] MEDS: VITAMIN D 1,000 INTERNATIONAL UNITS TABLET PO SCH (10:45)
[2017-08-20] MEDS: POTASSIUM CHLORIDE 10 MEQ SR TABLET PO SCH ×2 (10:46→18:19)
[2017-08-20] MEDS: CIPROFLOXACIN 400 MG in APPROPRIATE DILUENT 1 EA IV SCH (10:47)
[2017-08-20] MEDS: NYSTATIN 100,000 UNITS/GM TOPICAL PWD 15 GM TOP SCH ×2 (10:47→22:17)
[2017-08-20] MEDS: NS 1,000 ML IV SCH ×3 (12:11→14:19)
[2017-08-20 14:00] VITALS: BP 154/80
[2017-08-20 22:00] VITALS: BP 139/85
[2017-08-20] MEDS: metroNIDAZOLE (FLAGYL) 500 MG TAB PO SCH (22:15)
[2017-08-21 04:00] VITALS: BP 165/88
[2017-08-21] MEDS ORDERED: FUROSEMIDE 40 MG/4 ML VIAL (J1940) IV ONE ×2 (04:15→14:00)
[2017-08-21] MEDS: CIPROFLOXACIN 500 MG TAB PO SCH (05:52)
[2017-08-21 06:00] VITALS: BP 159/92
--- NOTE | 2017-08-21 08:31 | IPNPDOC ---
Subjective Date Seen The patient was seen on 08/21/17. Subjective Chief Complaint/HPI The patient is a 77-year-old female admitted with a reason for visit of Left Flank Pain. Events since last encounter Developed SOB last pm. Less SOb today. Having loose BMs this am. Slight nausea no vomiting. mild lower abd discomfort Constitutional: Denies: Chills, Fever Pulmonary: Reports: Dyspnea, Cough Cardiovascular: Denies: Chest Pain, Palpitations, Orthopnea Gastrointestinal: Reports: Nausea, Abdominal Pain (mild lower abd discomfort), Diarrhea, Denies: Vomiting Objective Physical Examination General Exam: Positive: Alert, Cooperative Chest Exam: Positive: Clear to auscultation Heart Exam: Positive: Tachycardic, Irregular Rhythm, Normal S1, Normal S2, Negative: Murmurs Abdomen Exam: Positive: Normal bowel sounds, Tenderness (mild lower abd tenderness) Skin Exam: Negative: Rash Psych Exam: Positive: Mental status NL Assessment /Plan Problems (1) Diverticulitis Status: Acute Response to Treatment: Stable Problem Text: Tolerating diet, still with mild lower bad discomfort. Having diarrhea this am. Now on po Cipro/Flagyl (2) Acute on chronic diastolic CHF (congestive heart failure) Status: Acute Problem Text: Developed dyspnea and hypoxemia over night secondary to acute CHF. IVF d/c'd. Lasix 40 mg IV x 1 given last pm Still with signs of fluid overload on exam. Restart usual HD Lasix 40 mg daily. Check labs today (3) Inability to walk Status: Acute Problem Text: 08/21 - Cont PT. Not safe yet per PT yesterday (4) UTI (urinary tract infection) Status: Acute Response to Treatment: Stable Problem Text: 08/21 - culture still pending. on cipro and flagyl for diverticulitis. cipro will likely cover. she denies dysuria (5) Chronic atrial fibrillation Problem Text: usually on Metoprolol but on hold currently. Rate controlled. Cont Apixiban (6) CKD (chronic kidney disease), stage III Status: Chronic Response to Treatment: Stable (7) HTN (hypertension) Status: Chronic Response to Treatment: Stable Problem Text: Lisinopril and Metoprolol on hold. Restart Lasix. Monitor BP trend (8) CAD (coronary artery disease) Status: Chronic Response to Treatment: Stable Problem Text: Cont ASA. SHARLENE and BB on hold currently Plan/VTE VTE Prophylaxis Ordered?: Yes (Eliquis) Plan Diet: Continue Current Therapy: PT Medications: Start Antibiotics Diagnostics: Check Labs Anticipated Discharge: Home VS, I&O, 24H, [facility] Vital Signs/I&O Vital Signs Date Time Temp Pulse Resp B/P (MAP) Pulse Ox O2 Delivery O2 Flow Rate FiO2 08/21/17 06:45 Nasal Cannula 3.0 08/21/17 06:00 96.0 65 24 159/92 (114) 93 I&O- Last 24 Hours up to 6 AM 08/22/17 06:00 Intake Total 900 ml Balance 900 ml Laboratory Data Microbiology Microbiology 08/20/17 Urine Culture, Received Pending KIRK DIXON PA-C Aug 21, 2017 08:31 Nolan Maciel MD Aug 22, 2017 10:32
[2017-08-21 09:30] LABS: ALBUMIN 2.7 GM/DL (3.2-5.2); ALBUMIN/GLOBULIN RATIO 0.79 (1.00-1.93); BILIRUBIN,TOTAL 0.5 MG/DL (0.2-1.0); CALCIUM LEVEL 8.7 MG/DL (8.8-10.2); CREATININE FOR GFR 1.1 MG/DL (0.55-1.02); POTASSIUM SERUM 4.7 MEQ/L (3.5-5.1); TOTAL PROTEIN 6.1 GM/DL (6.4-8.2)
[2017-08-21] MEDS: ASPIRIN 81 MG CHEW TABLET PO SCH (10:11)
[2017-08-21] MEDS: VITAMIN D 1,000 INTERNATIONAL UNITS TABLET PO SCH (10:11)
[2017-08-21] MEDS: metroNIDAZOLE (FLAGYL) 500 MG TAB PO SCH ×3 (10:11→22:11)
[2017-08-21] MEDS: ATORVASTATIN 20 MG TAB PO SCH (10:11)
[2017-08-21] MEDS: POTASSIUM CHLORIDE 10 MEQ SR TABLET PO SCH ×2 (10:11→17:53)
[2017-08-21] MEDS: MULTIVITAMINS/MINERALS THERAP 1 TAB PO SCH (10:11)
[2017-08-21] MEDS: NYSTATIN 100,000 UNITS/GM TOPICAL PWD 15 GM TOP SCH ×2 (10:12→22:11)
[2017-08-21] MEDS ORDERED: CEPACOL LOZENGE MT PRN (10:30)
[2017-08-21] MEDS: APIXABAN 5 MG TAB (ELIQUIS) PO SCH ×2 (10:51→17:53)
[2017-08-21 14:00] VITALS: BP 138/93
[2017-08-21] MEDS ORDERED: ALBUTEROL SULFATE 2.5 MG/0.5 ML INH NEB SOLN NEB PRN (14:45)
--- NOTE | 2017-08-21 15:12 | REP ---
Clinical: Dyspnea. Comparison: 07/11/2012. Findings: Perihilar and lower lobe opacities with indistinct pulmonary vasculature as well as mild cephalization compatible with CHF and pulmonary edema. Lower lobe opacities suggest consolidation/atelectasis and pleural effusions. No pneumothorax. Cardiomegaly noted. Skeletal structures stable. Impression: Cardiomegaly and findings as described above consistent with CHF and pulmonary edema. Signed by Berny Davis MD 08/21/2017 03:03 P
[2017-08-21] MEDS: IPRATROPIUM 0.5MG/ALBUTEROL 2.5MG INH SOL UD 3ML (DUONEB)(J7620) NEB SCH (20:09)
[2017-08-21 22:00] VITALS: BP 134/93
[2017-08-22] MEDS: IPRATROPIUM 0.5MG/ALBUTEROL 2.5MG INH SOL UD 3ML (DUONEB)(J7620) NEB SCH ×4 (02:00→20:23)
[2017-08-22 06:00] VITALS: BP 132/70
[2017-08-22 06:37] LABS: MEAN CORPUSCULAR HEMOGLOBIN 30.8 pg (27.0-33.0); MEAN CORPUSCULAR HGB CONC 33.1 g/dl (32.0-36.5); PLATELET COUNT, AUTOMATED 246 10^3/uL (150-450); RED CELL DISTRIBUTION WIDTH 13.9 % (11.5-14.5); WHITE BLOOD COUNT 10.3 10^3/uL (4.0-10.0)
[2017-08-22] MEDS: CIPROFLOXACIN 500 MG TAB PO SCH (06:40)
[2017-08-22 06:47] LABS: ALBUMIN 2.6 GM/DL (3.2-5.2); ALBUMIN/GLOBULIN RATIO 0.67 (1.00-1.93); BILIRUBIN,TOTAL 0.4 MG/DL (0.2-1.0); CREATININE FOR GFR 1.25 MG/DL (0.55-1.02); POTASSIUM SERUM 4.6 MEQ/L (3.5-5.1); TOTAL PROTEIN 6.5 GM/DL (6.4-8.2)
--- NOTE | 2017-08-22 08:41 | IPNPDOC ---
Subjective Date Seen The patient was seen on 08/22/17. Subjective Chief Complaint/HPI The patient is a 77-year-old female admitted with a reason for visit of Left Flank Pain. Events since last encounter Had epsiode of rapid a-fib last pm rate = 130s. Still with cough and some dyspnea. No further n/v. Still with loose BMs - not frequent. Constitutional: Denies: Chills, Fever Pulmonary: Reports: Dyspnea, Cough Cardiovascular: Denies: Chest Pain, Palpitations Gastrointestinal: Reports: Diarrhea, Denies: Nausea, Vomiting, Abdominal Pain, Constipation Objective Physical Examination General Exam: Positive: Alert, Cooperative Chest Exam: Positive: Clear to auscultation, Negative: Rales, Rhonchi, Wheezing (Rattling cough) Heart Exam: Positive: Tachycardic, Irregular Rhythm, Normal S1, Normal S2, Negative: Murmurs Abdomen Exam: Positive: Normal bowel sounds, Negative: Tenderness Extremity Exam: Negative: Edema Psych Exam: Positive: Mental status NL Assessment /Plan Problems (1) Acute on chronic diastolic CHF (congestive heart failure) Status: Acute Problem Text: Developed dyspnea and hypoxemia over night secondary to acute CHF. IVF d/c'd. Lasix 40 mg IV x 1 given last pm CXR 08/21 consistent with CHF Still with cough and dyspnea Give further IV Lasix. (2) Diverticulitis Status: Acute Response to Treatment: Stable Problem Text: 08/22 - Clinically improving on Cipro and Flagyl - Eating well. 1 BM yesterday - loose (3) Chronic atrial fibrillation Problem Text: usually on Metoprolol but on hold currently. Rate became rapid overnight - restart Metoprolol Cont Apixiban (4) Inability to walk Status: Acute Problem Text: 08/21 - Cont PT. Not safe yet per PT yesterday (5) UTI (urinary tract infection) Status: Acute Response to Treatment: Stable Problem Text: 08/22 - culture still pending. on cipro and flagyl for diverticulitis. cipro will likely cover. she denies dysuria (6) CKD (chronic kidney disease), stage III Status: Chronic Response to Treatment: Stable (7) HTN (hypertension) Status: Chronic Response to Treatment: Stable Problem Text: Lisinopril and HCTZ, Lasix and Metoprolol. Restart Metoprolol today Monitor BP trend (8) CAD (coronary artery disease) Status: Chronic Response to Treatment: Stable Problem Text: Cont ASA. SHARLENE on hold Plan/VTE VTE Prophylaxis Ordered?: Yes (Eliquis) Plan Diet: Continue Current Therapy: PT Medications: Start Antibiotics Diagnostics: Check Labs Anticipated Discharge: Home VS, I&O, 24H, [facility] Vital Signs/I&O Vital Signs Date Time Temp Pulse Resp B/P (MAP) Pulse Ox O2 Delivery O2 Flow Rate FiO2 08/22/17 06:00 96.5 67 18 132/70 (90) 96 Room Air 08/21/17 14:00 0.5 I&O- Last 24 Hours up to 6 AM 08/23/17 06:00 Intake Total 420 ml Output Total 0 ml Balance 420 ml Laboratory Data 24H LABS Laboratory Tests 2 08/21/17 08:44: Anion Gap 8, Glomerular Filtration Rate 51.0, Blood Urea Nitrogen 16, Creatinine 1.10H, Sodium Level 139, Potassium Level 4.7, Chloride Level 105, Carbon Dioxide Level 26, Calcium Level 8.7L, Aspartate Amino Transf (AST/SGOT) 18, Alanine Aminotransferase (ALT/SGPT) 14, Alkaline Phosphatase 85, Total Bilirubin 0.5, Total Protein 6.1L, Albumin 2.7L, PW-Xgh-H-Type Natriuretic Peptide 6761H, Albumin/Globulin Ratio 0.79L 08/22/17 06:17: Anion Gap 6L, Glomerular Filtration Rate 44.0, Blood Urea Nitrogen 22H, Creatinine 1.25H, Sodium Level 140, Potassium Level 4.6, Chloride Level 107, Carbon Dioxide Level 27, Calcium Level 9.0, Aspartate Amino Transf (AST/SGOT) 17 , Alanine Aminotransferase (ALT/SGPT) 15, Alkaline Phosphatase 78, Total Bilirubin 0.4, Total Protein 6.5, Albumin 2.6L, Albumin/Globulin Ratio 0.67L, Nucleated Red Blood Cells % (auto) 0.0 CBC/BMP Laboratory Tests 08/21/17 08:44 Calcium Level 8.7 L, Aspartate Amino Transf (AST/SGOT) 18, Alanine Aminotransferase (ALT/SGPT) 14, Alkaline Phosphatase 85, Total Bilirubin 0.5, Total Protein 6.1 L, Albumin 2.7 L 08/22/17 06:17 Calcium Level 9.0, Aspartate Amino Transf (AST/SGOT) 17, Alanine Aminotransferase (ALT/SGPT) 15, Alkaline Phosphatase 78, Total Bilirubin 0.4, Total Protein 6.5, Albumin 2.6 L, Red Blood Count 3.73 L, Mean Corpuscular Volume 93.0, Mean Corpuscular Hemoglobin 30.8, Mean Corpuscular Hemoglobin Concent 33.1, Red Cell Distribution Width 13.9 Microbiology Microbiology 08/20/17 Urine Culture, Received Pending Attending Note Attending Note official vital signs record does not document the tachycardia. need to review rhythm strips to find. rate now normal, on metoprolol KIRK DIXON PA-C Aug 22, 2017 08:41 Nolan Maciel MD Aug 22, 2017 10:34
[2017-08-22] MEDS ORDERED: METOPROLOL SUCC *XL* 12.5MG PER 1/2 TAB (TopROL *XL*) PO SCH (09:00)
[2017-08-22] MEDS ORDERED: FUROSEMIDE 40 MG TAB PO SCH (09:00)
[2017-08-22] MEDS: ATORVASTATIN 20 MG TAB PO SCH (09:25)
[2017-08-22] MEDS: APIXABAN 5 MG TAB (ELIQUIS) PO SCH ×2 (09:25→17:18)
[2017-08-22] MEDS: ASPIRIN 81 MG CHEW TABLET PO SCH (09:25)
[2017-08-22] MEDS: metroNIDAZOLE (FLAGYL) 500 MG TAB PO SCH ×3 (09:25→20:57)
[2017-08-22] MEDS: FUROSEMIDE 40 MG/4 ML VIAL (J1940) IV SCH ×2 (09:26→16:38)
[2017-08-22] MEDS: MULTIVITAMINS/MINERALS THERAP 1 TAB PO SCH (09:28)
[2017-08-22] MEDS: POTASSIUM CHLORIDE 10 MEQ SR TABLET PO SCH ×2 (09:28→17:18)
[2017-08-22] MEDS: VITAMIN D 1,000 INTERNATIONAL UNITS TABLET PO SCH (09:28)
[2017-08-22] MEDS: NYSTATIN 100,000 UNITS/GM TOPICAL PWD 15 GM TOP SCH ×2 (09:29→21:09)
[2017-08-22] MEDS ORDERED: METOPROLOL TART 25 MG TABLET PO ONE (12:45)
[2017-08-22 14:00] VITALS: BP 135/72
[2017-08-22 21:00] VITALS: BP 136/91
[2017-08-22] MEDS: METOPROLOL TART 25 MG TABLET PO SCH (21:09)
[2017-08-22 22:00] VITALS: BP 131/76
[2017-08-23] MEDS: IPRATROPIUM 0.5MG/ALBUTEROL 2.5MG INH SOL UD 3ML (DUONEB)(J7620) NEB SCH ×5 (02:00→23:42)
[2017-08-23 06:00] VITALS: BP 130/80
[2017-08-23] MEDS: CIPROFLOXACIN 500 MG TAB PO SCH (06:21)
--- NOTE | 2017-08-23 07:50 | ECHO ---
DATE OF PROCEDURE: 08/22/2017 REFERRING PHYSICIAN: Dr. Nolan Maciel INDICATION: Dyspnea. HEIGHT: 152 cm. WEIGHT: 81 kg. DIMENSIONS: IVS: 1.1 LV: 5.0 LVPW: 1.2 LA: 5.2 Aorta: 3.8 FINDINGS: The study is of acceptable technical quality. The left ventricle is normal size and appears to be mildly to moderately globally hypokinetic. I estimate overall ejection fraction (EF) around 45%. The right ventricle is not enlarged. The left atrium is severely enlarged. The right atrium appears to be grossly normal size. The aortic valve is sclerotic, but has three cusps and normal mobility. There are very prominent degenerative abnormalities of the mitral valve with mitral annular calcifications and thickening of both mitral leaflets. There is an mobile echodensity on the atrial surface of the posterior mitral leaflet measuring 2.5 x 0.9 cm raising suspicion for vegetation. There appears to be at least some component of flailing posterior mitral leaflet, probably just a small segment. There is also some limitations of opening of leaflet indicative of at least mild mitral stenosis by 2-D imaging. The tricuspid valve appears normal. The pulmonic valve was not well seen. No pericardial effusion is noted. The inferior vena cava is dilated, but has no appreciable collapse with respiration indicative of likely very high central venous pressure. The aortic root is on upper limits of normal size. The aortic arch and abdominal aorta were not seen. Doppler interrogation reveals no significant aortic stenosis or insufficiency. There is trivial mitral stenosis (mean gradient 4 mmHg) and severe mitral insufficiency due to likely flail segment of the posterior mitral leaflet. There is approximately moderate tricuspid insufficiency. Calculated pulmonary artery pressure is at minimum in the 50s, corresponding to moderate pulmonary hypertension. Evaluation of diastolic function is inconclusive due to underlying atrial fibrillation. CONCLUSIONS: 1. The study is of acceptable technical quality. 2. Normal LV size with global hypokinesis and estimated LVEF approximately 40-45%. 3. Degenerative abnormalities of the mitral valve with likely flail small segment of posterior mitral leaflet and mobile echodensity on atrial surface of the posterior mitral leaflet suggestive of vegetation with resulting severe mitral insufficiency. 4. Trivial mitral stenosis. 5. High central venous pressure and at least moderate pulmonary hypertension. COMMENTS: Subacute bacterial peritonitis (SBE) prophylaxis is recommended. Results of the study were communicated yesterday evening with Dr. Hassan. The study certainly raises suspicion for bacterial endocarditis. MTDD
--- NOTE | 2017-08-23 07:59 | IPNPDOC ---
Subjective Date Seen The patient was seen on 08/23/17. Subjective Chief Complaint/HPI The patient is a 77-year-old female admitted with a reason for visit of Left Flank Pain. Events since last encounter Less SOB. Appetite poor, but no n/v. No further abd pain or diarrhea. Constitutional: Denies: Chills, Fever Pulmonary: Reports: Dyspnea, Cough (improving) Cardiovascular: Denies: Chest Pain, Palpitations Gastrointestinal: Denies: Nausea, Vomiting, Abdominal Pain, Diarrhea, Constipation Objective Physical Examination General Exam: Positive: Alert (bright, alert - no signs of dyspnea), Cooperative Chest Exam: Positive: Clear to auscultation, Negative: Rales, Rhonchi, Wheezing Heart Exam: Positive: Tachycardic, Irregular Rhythm, Normal S1, Normal S2, Murmurs Abdomen Exam: Positive: Normal bowel sounds, Negative: Tenderness Extremity Exam: Negative: Edema Skin Exam: Negative: Rash Psych Exam: Positive: Mental status NL Assessment /Plan Problems (1) Valvular vegetation Status: Acute Problem Text: Echo done 08/21 EF about 45%, very enlarged Left Atrium with Severe Mitral valve dysfunction with suspicion for vegetation. non-mycotic vs bacterial endocarditis are possibilities. blood cultures have been ordered. Appearance c/w severe mitral valve disease, contributing to CHF. B/Cs pending. ESR = 54 Afebrile, Wbc 10.x Currently on Cipro/Flagyl for Diverticulitis Await cultures (2) Acute on chronic diastolic CHF (congestive heart failure) Status: Acute Problem Text: 08/23 -Clinically improving on IV Lasix. Creatinine up slightly at 1.25 Labs still pending this morning -Monitor RF and electrolytes CXR 08/21 consistent with CHF (3) Diverticulitis Status: Acute Response to Treatment: Stable Problem Text: 08/23 - Symptomatically improved Cipro/Flagyl - now on po (Day # 5 overall) (4) Chronic atrial fibrillation Problem Text: 08/23 - Rate improved with restart of Metoprolol. Rate back up this afternoon, with increase to 25mg TID, Cont Apixiban (5) Inability to walk Status: Acute Problem Text: 08/23 - Cont PT. Not safe yet per PT yet - declined PT yesterday (6) UTI (urinary tract infection) Status: Acute Response to Treatment: Stable Problem Text: 08/23 - I called [facility] T. - U/C from 08/20 will be reported today "No growth" (7) CKD (chronic kidney disease), stage III Status: Chronic Response to Treatment: Stable (8) HTN (hypertension) Status: Chronic Response to Treatment: Stable Problem Text: Lisinopril and HCTZ, Lasix and Metoprolol. Restart Metoprolol today Monitor BP trend (9) CAD (coronary artery disease) Status: Chronic Response to Treatment: Stable Problem Text: Cont ASA. SHARLENE on hold Plan/VTE VTE Prophylaxis Ordered?: Yes (Eliquis) Plan Diet: Continue Current Therapy: PT Medications: Start Antibiotics Diagnostics: Check Labs Anticipated Discharge: Home Disposition Continue PT VS, I&O, 24H, [facility] Vital Signs/I&O Vital Signs Date Time Temp Pulse Resp B/P (MAP) Pulse Ox O2 Delivery O2 Flow Rate FiO2 08/23/17 06:46 72 08/23/17 06:00 96.1 18 130/80 (97) 95 Room Air 08/21/17 14:00 0.5 Laboratory Data 24H LABS Laboratory Tests 2 08/22/17 21:54: Erythrocyte Sedimentation Rate 57H Microbiology Microbiology 08/22/17 Blood Culture, Received Pending 08/22/17 Blood Culture, Received Pending 08/22/17 Blood Culture, Received Pending 08/22/17 Blood Culture, Received Pending 08/22/17 Blood Culture, Received Pending 08/22/17 Blood Culture, Received Pending 08/20/17 Urine Culture, Received Pending KIRK DIXON PA-C Aug 23, 2017 07:59 Nolan Maciel MD Aug 23, 2017 14:47
[2017-08-23 08:00] LABS: BASO % 0.3 % (0.0-1.0); EOS % 0.4 % (0.0-3.0); IMMATURE GRANULOCYTE % 0.3 % (0-0); LYMPH # 2.1 10^3/uL (1.5-4.5); LYMPH % 19.1 % (24.0-44.0); MEAN CORPUSCULAR HEMOGLOBIN 30.7 pg (27.0-33.0); MEAN CORPUSCULAR HGB CONC 33.1 g/dl (32.0-36.5); MEAN CORPUSCULAR VOLUME 92.6 fl (80.0-96.0); MONO # 0.6 10^3/uL (0.0-0.8); MONO % 5.8 % (0.0-5.0); NEUTROPHILS % 74.1 % (36.0-66.0); PLATELET COUNT, AUTOMATED 260 10^3/uL (150-450); RED CELL DISTRIBUTION WIDTH 14.2 % (11.5-14.5); WHITE BLOOD COUNT 10.8 10^3/uL (4.0-10.0)
[2017-08-23] MEDS: MULTIVITAMINS/MINERALS THERAP 1 TAB PO SCH (09:18)
[2017-08-23] MEDS: POTASSIUM CHLORIDE 10 MEQ SR TABLET PO SCH ×2 (09:18→16:28)
[2017-08-23] MEDS: VITAMIN D 1,000 INTERNATIONAL UNITS TABLET PO SCH (09:18)
[2017-08-23] MEDS: ATORVASTATIN 20 MG TAB PO SCH (09:18)
[2017-08-23] MEDS: ASPIRIN 81 MG CHEW TABLET PO SCH (09:18)
[2017-08-23] MEDS: FUROSEMIDE 40 MG/4 ML VIAL (J1940) IV SCH ×2 (09:18→16:27)
[2017-08-23] MEDS: NYSTATIN 100,000 UNITS/GM TOPICAL PWD 15 GM TOP SCH ×2 (09:19→21:31)
[2017-08-23] MEDS: APIXABAN 5 MG TAB (ELIQUIS) PO SCH ×2 (09:19→16:27)
[2017-08-23] MEDS: metroNIDAZOLE (FLAGYL) 500 MG TAB PO SCH ×3 (09:19→21:31)
[2017-08-23] MEDS: METOPROLOL TART 25 MG TABLET PO SCH (09:21)
--- NOTE | 2017-08-23 09:21 | CR ---
DATE OF CONSULTATION: 08/23/2017 REFERRING PHYSICIAN: Dr. Hassan. INDICATION: MR, suspicion for endocarditis. HISTORY OF PRESENT ILLNESS: Mrs. Krishna is previously unknown to me. She is a very pleasant 77-year-old female who was admitted to our facility on August 18 with abdominal pain and working diagnosis of diverticulitis. She has been treated with antibiotics and her condition as far as the abdominal pain has been improving. But during the process, she started complaining about shortness of breath. Chest x-ray on August 21 revealed congestive heart failure and an echocardiogram was ordered yesterday by Dr. Maciel and revealed LV dysfunction and severe mitral insufficiency. There was suspicion for possible vegetation on mitral valve. I was asked to see the patient by Dr. Hassan. In the interim , she had several sets of blood cultures all which are still pending. Talking to the patient, she has known about having mitral valve problems since childhood. 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 To the best of our knowledge, she has not had any followup echocardiogram since until yesterday. The patient tells me that at her baseline , she is quite functional. She can walk around the house without major difficulty and gets mildly short of breath but dyspnea has not been a main problem. She started being short of breath only since she has been hospitalized here probably in part due to fairly vigorous hydration initially for treatment of diverticulitis and stopping her diuretics. Currently she does not report much dyspnea when she stays in bed but she does report mild PND and she says that she gets coughing almost immediately when she lays flat. Denies any chest pain or sensation of palpitations. PAST MEDICAL HISTORY: 1. Atrial fibrillation. 2. Known mitral valve prolapse. 3. Hypertension. 4. Dyslipidemia. 5. Degenerative joint disease. 6. Impaired fasting glucose. OUTPATIENT MEDICATIONS: - aspirin 81 mg a day - hydrocodone as needed for pain - amlodipine 2.5 mg a day - apixaban 5 mg twice a day - Lipitor 40 mg a day - vitamin D 2000 units a day - fosinopril 40 mg a day - furosemide 40 mg a day - hydrochlorothiazide 25 mg a day - metoprolol tartrate 12.5 mg twice a day - multivitamin - potassium chloride SOCIAL HISTORY: The patient is . She lives with her and her son. 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 She used to smoke as a young woman, but has not been smoking for many decades. She has occasional alcohol. FAMILY HISTORY: No longer relevant. She denies any first-degree relatives with early coronary artery disease. On review of systems, she denies any prolonged fever, chills, nausea, vomiting. She does admit to mild exertional dyspnea but no chest pain. No syncope or near-syncope. She does not get peripheral edema as a rule. The rest of the review of system is negative. PHYSICAL EXAMINATION: Mrs. Krishna is an obese elderly female. She appears approximately her age. She is alert and oriented and appropriate and very pleasant. Vital signs reveal blood pressure 130/80, heart rate has been from 60s to 80s atrial fibrillation. She has been afebrile. Saturation 95% on room air. Her fluid balance yesterday has been positive and has been consistently positive virtually every day since admission. Her weight has not been documented for last several days and has been 81.5 kg on admission. She is alert and oriented and appropriate. Her JVP is elevated. I estimate only about 4 or 5 cm above clavicle. Lungs are surprisingly clear with only occasional crackle. I do not appreciate any rhonchi or wheezing. Heart: Exam reveals irregular rhythm. Surprisingly her murmur is not as loud as I expected. I would of called it about 3/6 intensity and is best heard in the axilla consistent with MR. Abdomen is obese but soft and nontender. There is no peripheral edema. Neurologically she is intact. LABORATORY: Her CBC reveals WBC count 10.8, hemoglobin 11.7, hematocrit 35, platelet count 260,000. ESR is 57. Basic metabolic panel: Potassium 4.6, BUN 22, creatinine 1.3, GFR 44 and glucose 118, INR is 1.3 ASSESSMENT: ECG was performed on August 18 and reveals atrial fibrillation with ventricular rate 84 beats per minute. There are scattered PVCs and poor R-wave progression and nonspecific repolarization abnormality. She had a chest x-ray on August 21 which reveals cardiomegaly and congestive heart failure. Microbiology: Numerous blood cultures are pending. She had an echocardiogram last night that revealed EF around 45% which appears global. Degenerative abnormalities of mitral valve with likely flail small segment of posterior mitral leaflet. There is echodensity on the atrial surface of posterior mitral leaflet that could represent inappropriate setting vegetation, but could represent also degenerative change as well. ASSESSMENT/PLAN: Mrs. Krishna is a 77-year-old female who has longstanding history of mitral insufficiency. She is currently admitted with diverticulitis. It seems to be treated successfully and her abdominal complaints are pretty much resolved. But she developed congestive heart failure likely because of hydration and discontinuation of her diuretics. Obviously she needs to be put back on diuretics because she is symptomatic. This has been already done yesterday and she admits that she already feels a little better this morning. She also has chronic atrial fibrillation that is rate controlled and she is anticoagulated with appropriate medications. The principal problem is mitral insufficiency. Considering that even by 2-D imaging, her MR is clearly severe, this is not an acute event as she would not be able to tolerate the condition. Also the fact that she already has LV dysfunction argues for chronicity of this issue. Unfortunately, typically once the LV function declines, that already is beyond the point when patient's are candidates for valve replacement. When I talked to her about it, she would not consider open heart surgery anyhow. Consequently we will be left with medical management which in this point indicates principally diuretics and if tolerated vasodilators. I do not foresee any further extensive evaluation in this matter. As far as the possibility of endocarditis is concerned, I would await the results of blood cultures. My suspicion is actually relatively low. Even though she has this mass on the mitral valve, it could be just degenerative change and I am not convinced that the clinical setting is as appropriate for endocarditis. If the blood cultures remain negative, I would not pursue any further evaluation in this matter. Dr. Morrell covers the weekend. Please contact him if any further input is necessary. MILDRED
[2017-08-23 14:00] VITALS: BP 117/79
[2017-08-23] MEDS ORDERED: METOPROLOL TART 25 MG TABLET PO ONE (15:00)
[2017-08-23] MEDS: METOPROLOL SUCC *XL* 25MG TAB (TopROL *XL*) PO SCH (21:36)
[2017-08-23 23:19] VITALS: BP 126/82
[2017-08-24 06:00] VITALS: BP 123/81
[2017-08-24] MEDS: CIPROFLOXACIN 500 MG TAB PO SCH (06:05)
[2017-08-24 06:32] LABS: BASO # 0.1 10^3/uL (0.0-0.2); BASO % 0.5 % (0.0-1.0); EOS # 0.2 10^3/uL (0.0-0.50); EOS % 1.7 % (0.0-3.0); IMMATURE GRANULOCYTE % 0.3 % (0-0); LYMPH # 2.2 10^3/uL (1.5-4.5); LYMPH % 23.1 % (24.0-44.0); MEAN CORPUSCULAR HEMOGLOBIN 31.5 pg (27.0-33.0); MEAN CORPUSCULAR HGB CONC 33.6 g/dl (32.0-36.5); MEAN CORPUSCULAR VOLUME 93.5 fl (80.0-96.0); MONO # 0.7 10^3/uL (0.0-0.8); MONO % 7.2 % (0.0-5.0); NEUTROPHILS # 6.4 10^3/uL (1.8-7.7); NEUTROPHILS % 67.2 % (36.0-66.0); PLATELET COUNT, AUTOMATED 233 10^3/uL (150-450); RED CELL DISTRIBUTION WIDTH 14.3 % (11.5-14.5); WHITE BLOOD COUNT 9.5 10^3/uL (4.0-10.0)
[2017-08-24 06:49] LABS: CALCIUM LEVEL 8.8 MG/DL (8.8-10.2); CREATININE FOR GFR 1.29 MG/DL (0.55-1.02); GLOMERULAR FILTRATION RATE 42.4 (>39)
[2017-08-24] MEDS: IPRATROPIUM 0.5MG/ALBUTEROL 2.5MG INH SOL UD 3ML (DUONEB)(J7620) NEB SCH ×4 (07:13→20:53)
[2017-08-24] MEDS: ATORVASTATIN 20 MG TAB PO SCH (10:20)
[2017-08-24] MEDS: FUROSEMIDE 40 MG/4 ML VIAL (J1940) IV SCH (10:20)
[2017-08-24] MEDS: POTASSIUM CHLORIDE 10 MEQ SR TABLET PO SCH ×2 (10:21→18:02)
[2017-08-24] MEDS: MULTIVITAMINS/MINERALS THERAP 1 TAB PO SCH (10:21)
[2017-08-24] MEDS: ASPIRIN 81 MG CHEW TABLET PO SCH (10:21)
[2017-08-24] MEDS: metroNIDAZOLE (FLAGYL) 500 MG TAB PO SCH ×3 (10:21→19:58)
[2017-08-24] MEDS: APIXABAN 5 MG TAB (ELIQUIS) PO SCH ×2 (10:22→18:02)
[2017-08-24] MEDS: NYSTATIN 100,000 UNITS/GM TOPICAL PWD 15 GM TOP SCH ×2 (10:26→19:58)
[2017-08-24] MEDS: METOPROLOL SUCC *XL* 25MG TAB (TopROL *XL*) PO SCH ×3 (10:26→19:58)
--- NOTE | 2017-08-24 12:16 | IPNPDOC ---
Subjective Date Seen The patient was seen on 08/24/17. Subjective Chief Complaint/HPI The patient is a 77-year-old female admitted with a reason for visit of Left Flank Pain. Events since last encounter Patient states that she is doing good today, she does not have any acute concerns. Constitutional: Denies: Chills, Fever Pulmonary: Reports: Dyspnea (but better with nebs) Cardiovascular: Denies: Chest Pain Gastrointestinal: Denies: Nausea, Vomiting, Abdominal Pain Objective Physical Examination General Exam: Positive: Alert, Cooperative Chest Exam: Positive: Clear to auscultation, Normal air movement, Negative: Rales, Rhonchi, Wheezing Heart Exam: Positive: Rate Normal, Irregular Rhythm, Normal S1, Normal S2, Negative: Gallops, Rubs Abdomen Exam: Positive: Normal bowel sounds, Negative: Soft, Tenderness, Hepatospenomegaly Extremity Exam: Negative: Edema Assessment /Plan Problems (1) Valvular vegetation Status: Acute Problem Text: 08/24: Patient seen by cardiology, concern for endocarditis is low. 5/6 blood cultures: no growth after 24 hours. 1 blood culture showed gram positive cocci in pairs and chains. Due to 5/6 negative cultures, one positive culture is likely skin contaminant. We will follow up full results when available 08/23: Echo done 08/21 EF about 45%, very enlarged Left Atrium with Severe Mitral valve dysfunction with suspicion for vegetation. non-mycotic vs bacterial endocarditis are possibilities. blood cultures have been ordered. Appearance c/w severe mitral valve disease, contributing to CHF. B/Cs pending. ESR = 54 Afebrile, Wbc 10.x Currently on Cipro/Flagyl for Diverticulitis Await cultures (2) Acute on chronic diastolic CHF (congestive heart failure) Status: Acute Problem Text: 08/24: Creatinine stable at 1.29, will transition her to her home dose of Lasix 40mg orally once daily 08/23 -Clinically improving on IV Lasix. Creatinine up slightly at 1.25 Labs still pending this morning -Monitor RF and electrolytes CXR 08/21 consistent with CHF (3) Diverticulitis Status: Acute Response to Treatment: Stable Problem Text: 08/23 - Symptomatically improved Cipro/Flagyl - now on po (Day # 5 overall) (4) Chronic atrial fibrillation Problem Text: 08/24: Rate stable on Metoprolol 25mg TID, continue to monitor 12/1 - Rate improved with restart of Metoprolol. Rate back up this afternoon, with increase to 25mg TID, Cont Apixiban (5) Inability to walk Status: Acute Problem Text: 08/24: As per PT, patient still limited with ambulation. Continue to work with PT 08/23 - Cont PT. Not safe yet per PT yet - declined PT yesterday (6) UTI (urinary tract infection) Status: Resolved Response to Treatment: Stable Problem Text: 08/24: Urine culture showed no growth (7) CKD (chronic kidney disease), stage III Status: Chronic Response to Treatment: Stable Problem Text: Cr at baseline (8) HTN (hypertension) Status: Chronic Response to Treatment: Stable Problem Text: Continue Lasix and Metoprolol. ACEi and HCTZ are being held due to normal BPs currently - will add back if BP increases. (9) CAD (coronary artery disease) Status: Chronic Response to Treatment: Stable Problem Text: Cont ASA. SHARLENE on hold Plan/VTE VTE Prophylaxis Ordered?: Yes (Eliquis) Plan Diet: Continue Current Therapy: PT Medications: Start Antibiotics Diagnostics: Check Labs Anticipated Discharge: Home VS, I&O, 24H, [facility] Vital Signs/I&O Vital Signs Date Time Temp Pulse Resp B/P (MAP) Pulse Ox O2 Delivery O2 Flow Rate FiO2 08/24/17 10:26 81 121/76 08/24/17 06:00 97.2 20 95 Room Air 08/21/17 14:00 0.5 Laboratory Data 24H LABS Laboratory Tests 2 08/24/17 06:10: Immature Granulocyte % (Auto) 0.3H, White Blood Count 9.5, Red Blood Count 3.56L , Hemoglobin 11.2L, Hematocrit 33.3L, Mean Corpuscular Volume 93.5, Mean Corpuscular Hemoglobin 31.5, Mean Corpuscular Hemoglobin Concent 33.6, Red Cell Distribution Width 14.3, Platelet Count 233, Neutrophils (%) (Auto) 67.2H, Lymphocytes (%) (Auto) 23.1L, Monocytes (%) (Auto) 7.2H, Eosinophils (%) (Auto) 1.7, Basophils (%) (Auto) 0.5, Neutrophils # (Auto) 6.4, Lymphocytes # (Auto) 2.2, Monocytes # (Auto) 0.7, Eosinophils # (Auto) 0.2, Basophils # (Auto) 0.1, Immature Granulocyte # (Auto) 0.0, Nucleated Red Blood Cells % (auto) 0.0, Anion Gap 8, Glomerular Filtration Rate 42.4, Blood Urea Nitrogen 36#H, Creatinine 1.29H, Sodium Level 143, Potassium Level 4.0, Chloride Level 108H, Carbon Dioxide Level 27, Calcium Level 8.8 CBC/BMP Laboratory Tests 08/24/17 06:10 Red Blood Count 3.56 L, Mean Corpuscular Volume 93.5, Mean Corpuscular Hemoglobin 31.5, Mean Corpuscular Hemoglobin Concent 33.6, Red Cell Distribution Width 14.3, Neutrophils (%) (Auto) 67.2 H, Lymphocytes (%) (Auto) 23.1 L, Monocytes (%) (Auto) 7.2 H, Eosinophils (%) (Auto) 1.7, Basophils (%) ( Auto) 0.5, Neutrophils # (Auto) 6.4, Lymphocytes # (Auto) 2.2, Monocytes # (Auto ) 0.7, Eosinophils # (Auto) 0.2, Basophils # (Auto) 0.1, Calcium Level 8.8 Microbiology Microbiology 08/22/17 Blood Culture - Preliminary, Resulted No growth after 24 hours . All specim... 08/22/17 Blood Culture - Preliminary, Resulted No growth after 24 hours . All specim... 08/22/17 Blood Culture - Preliminary, Resulted 08/22/17 Blood Culture - Preliminary, Resulted No growth after 24 hours . All specim... 08/22/17 Blood Culture - Preliminary, Resulted No growth after 24 hours . All specim... 08/22/17 Blood Culture - Preliminary, Resulted No growth after 24 hours . All specim... 08/20/17 Urine Culture - Final, Complete GME ATTESTATION GME ATTESTATION My faculty preceptor for this patient encounter was physically present during the encounter and was fully available. All aspects of the patient interview, examination, medical decision making process, and medical care plan development were reviewed and approved by the faculty preceptor. The faculty preceptor is aware and concurs with the plan as stated in the body of this note and will attest to such by his/her cosignature. ATTENDING NOTE I saw and examined Ms. Krishna this afternoon; I discussed her care with Dr. Gilliland and I agree with his note as documented. I agree with holding off on antibiotics for now, as she has been afebrile, WBCs are WNL, and only 1/6 cultures is positive - this is likely a contaminant. I do recommend that we monitor her in the hospital until culture results are available. She appears euvolemic today, so we will transition her to home furosemide dose. I/O seem to show that she is net positive, but she admits she has been urinating in the toilet, so I/O are not accurate. We will weigh daily to monitor volume status. (KES) ROYAL GILLILAND DO Aug 24, 2017 12:16 JJ GONZALEZ MD Aug 24, 2017 14:35
[2017-08-24 14:00] VITALS: BP 118/74
[2017-08-24] MEDS: VITAMIN D 1,000 INTERNATIONAL UNITS TABLET PO SCH (14:11)
[2017-08-24 22:00] VITALS: BP 139/83
[2017-08-25] MEDS: CIPROFLOXACIN 500 MG TAB PO SCH (05:44)
[2017-08-25 06:00] VITALS: BP 132/83
[2017-08-25 06:26] LABS: BASO % 0.4 % (0.0-1.0); EOS # 0.2 10^3/uL (0.0-0.50); IMMATURE GRANULOCYTE % 0.4 % (0-0); LYMPH % 20.8 % (24.0-44.0); MEAN CORPUSCULAR HEMOGLOBIN 31.5 pg (27.0-33.0); MEAN CORPUSCULAR HGB CONC 33.7 g/dl (32.0-36.5); MEAN CORPUSCULAR VOLUME 93.4 fl (80.0-96.0); MONO # 0.7 10^3/uL (0.0-0.8); MONO % 7.7 % (0.0-5.0); NEUTROPHILS # 6.5 10^3/uL (1.8-7.7); NEUTROPHILS % 68.7 % (36.0-66.0); PLATELET COUNT, AUTOMATED 233 10^3/uL (150-450); RED CELL DISTRIBUTION WIDTH 14.4 % (11.5-14.5); WHITE BLOOD COUNT 9.5 10^3/uL (4.0-10.0)
[2017-08-25 06:45] LABS: ANION GAP 8 MEQ/L (8-16); BLOOD UREA NITROGEN 36 MG/DL (7-18); CALCIUM LEVEL 8.5 MG/DL (8.8-10.2); CARBON DIOXIDE LEVEL 24 MEQ/L (21-32); CHLORIDE LEVEL 110 MEQ/L (98-107); CREATININE FOR GFR 0.99 MG/DL (0.55-1.02); GLOMERULAR FILTRATION RATE 57.6 (>39); GLUCOSE, FASTING 105 MG/DL (83-110); POTASSIUM SERUM 3.8 MEQ/L (3.5-5.1); SODIUM LEVEL 142 MEQ/L (136-145)
[2017-08-25] MEDS: IPRATROPIUM 0.5MG/ALBUTEROL 2.5MG INH SOL UD 3ML (DUONEB)(J7620) NEB SCH ×4 (06:58→23:30)
[2017-08-25] MEDS: ATORVASTATIN 20 MG TAB PO SCH (08:53)
[2017-08-25] MEDS: ASPIRIN 81 MG CHEW TABLET PO SCH (08:53)
[2017-08-25] MEDS: VITAMIN D 1,000 INTERNATIONAL UNITS TABLET PO SCH (08:53)
[2017-08-25] MEDS: POTASSIUM CHLORIDE 10 MEQ SR TABLET PO SCH ×2 (08:54→17:47)
[2017-08-25] MEDS: APIXABAN 5 MG TAB (ELIQUIS) PO SCH ×2 (08:54→17:47)
[2017-08-25] MEDS: NYSTATIN 100,000 UNITS/GM TOPICAL PWD 15 GM TOP SCH ×2 (08:54→20:57)
[2017-08-25] MEDS: MULTIVITAMINS/MINERALS THERAP 1 TAB PO SCH (08:54)
[2017-08-25] MEDS: metroNIDAZOLE (FLAGYL) 500 MG TAB PO SCH ×3 (08:54→20:56)
[2017-08-25] MEDS: METOPROLOL SUCC *XL* 25MG TAB (TopROL *XL*) PO SCH ×3 (08:55→20:57)
[2017-08-25] MEDS: FUROSEMIDE 40 MG TAB PO SCH (08:55)
--- NOTE | 2017-08-25 09:30 | IPNPDOC ---
Subjective Date Seen The patient was seen on 08/25/17. Subjective Chief Complaint/HPI The patient is a 77-year-old female admitted with a reason for visit of Left Flank Pain. Events since last encounter She feels well today and has no complaints. Constitutional: Denies: Chills, Fever Pulmonary: Denies: Dyspnea, Cough Cardiovascular: Denies: Chest Pain, Palpitations, Orthopnea, Edema, Lt Headedness Gastrointestinal: Denies: Nausea, Vomiting, Abdominal Pain, Diarrhea Genitourinary: Denies: Dysuria Neurological: Denies: Weakness, Numbness Objective Physical Examination General Exam: Positive: Alert, Cooperative Chest Exam: Positive: Clear to auscultation, Normal air movement, Negative: Rales, Rhonchi, Wheezing Heart Exam: Positive: Rate Normal, Irregular Rhythm, Normal S1, Normal S2, Negative: Gallops, Rubs Abdomen Exam: Positive: Normal bowel sounds, Negative: Soft, Tenderness, Hepatospenomegaly Extremity Exam: Positive: Edema (trace ankle edema bilaterally) Assessment /Plan Problems (1) Bacteremia Status: Acute Problem Text: 09/28 blood cultures drawn 08/22/17 were positive for strep mitis. Patient has been afebrile throughout her hospital stay, WBCs are within normal limits, she feels well and at her baseline, and she does not appear ill. However, given questionable mitral valve vegetation and the fact that strep mitis is not a typical skin contaminant and can be seen with endocarditis, further evaluation is needed. Strep mitis could also be seeded from the gut with her recent diverticulitis diagnosis, though her CT A/P on 08/18 is not terribly impressive for diverticulitis, and no abscess or perforation was noted. Patient has been on antibiotics for 3 days when her cultures were drawn on 08/22/17 - Check ESR, CRP, and RF stat - Repeat blood cultures - Continue PO Cipro/flagyl - D/w Dr. Thomas tomorrow the need for a ROXY (2) Valvular vegetation Status: Acute Problem Text: 08/24: Patient seen by cardiology on 08/23, concern for endocarditis is low. 08/23: Echo done 08/21 EF about 45%, very enlarged Left Atrium with Severe Mitral valve dysfunction with suspicion for vegetation. non-mycotic vs bacterial endocarditis are possibilities. blood cultures have been ordered. Appearance c/w severe mitral valve disease, contributing to CHF. B/Cs pending. ESR = 54 (3) Acute on chronic diastolic CHF (congestive heart failure) Status: Acute Problem Text: 08/25: remains euvolemic on exam on HD lasix; check daily weights and I/Os 08/24: Creatinine stable at 1.29, will transition her to her home dose of Lasix 40mg orally once daily 08/23 -Clinically improving on IV Lasix. Creatinine up slightly at 1.25 Labs still pending this morning -Monitor RF and electrolytes CXR 08/21 consistent with CHF (4) Diverticulitis Status: Acute Response to Treatment: Stable Problem Text: Symptomatically improved on Cipro/Flagyl - D#7 (5) Chronic atrial fibrillation Problem Text: 08/24: Rate stable on Metoprolol 25mg TID, continue to monitor 08/23 - Rate improved with restart of Metoprolol. Rate back up this afternoon, with increase to 25mg TID, Cont Apixiban (6) Inability to walk Status: Acute Problem Text: 08/24: As per PT, patient still limited with ambulation. Continue to work with PT 08/23 - Cont PT. Not safe yet per PT yet - declined PT yesterday (7) UTI (urinary tract infection) Status: Resolved Response to Treatment: Stable Problem Text: 08/24: Urine culture showed no growth (8) CKD (chronic kidney disease), stage III Status: Chronic Response to Treatment: Stable Problem Text: Cr at baseline (9) HTN (hypertension) Status: Chronic Response to Treatment: Stable Problem Text: Continue Lasix and Metoprolol. ACEi and HCTZ are being held due to normal BPs currently - will add back if BP increases. (10) CAD (coronary artery disease) Status: Chronic Response to Treatment: Stable Problem Text: Cont ASA. SHARLENE on hold Plan/VTE VTE Prophylaxis Ordered?: Yes (Eliquis) Plan Diet: Continue Current Therapy: PT Medications: Start Antibiotics Diagnostics: Check Labs Anticipated Discharge: Home VS, I&O, 24H, Veronica Vital Signs/I&O Vital Signs Date Time Temp Pulse Resp B/P (MAP) Pulse Ox O2 Delivery O2 Flow Rate FiO2 08/25/17 08:55 86 132/83 08/25/17 06:00 96.6 18 96 Room Air 08/21/17 14:00 0.5 Laboratory Data 24H LABS Laboratory Tests 2 08/25/17 06:18: Immature Granulocyte % (Auto) 0.4H, White Blood Count 9.5, Red Blood Count 3.62L , Hemoglobin 11.4L, Hematocrit 33.8L, Mean Corpuscular Volume 93.4, Mean Corpuscular Hemoglobin 31.5, Mean Corpuscular Hemoglobin Concent 33.7, Red Cell Distribution Width 14.4, Platelet Count 233, Neutrophils (%) (Auto) 68.7H, Lymphocytes (%) (Auto) 20.8L, Monocytes (%) (Auto) 7.7H, Eosinophils (%) (Auto) 2.0, Basophils (%) (Auto) 0.4, Neutrophils # (Auto) 6.5, Lymphocytes # (Auto) 2.0, Monocytes # (Auto) 0.7, Eosinophils # (Auto) 0.2, Basophils # (Auto) 0.0, Immature Granulocyte # (Auto) 0.0, Nucleated Red Blood Cells % (auto) 0.0, Anion Gap 8, Glomerular Filtration Rate 57.6, Blood Urea Nitrogen 36H, Creatinine 0.99, Sodium Level 142, Potassium Level 3.8, Chloride Level 110H, Carbon Dioxide Level 24, Calcium Level 8.5L CBC/BMP Laboratory Tests 08/25/17 06:18 Red Blood Count 3.62 L, Mean Corpuscular Volume 93.4, Mean Corpuscular Hemoglobin 31.5, Mean Corpuscular Hemoglobin Concent 33.7, Red Cell Distribution Width 14.4, Neutrophils (%) (Auto) 68.7 H, Lymphocytes (%) (Auto) 20.8 L, Monocytes (%) (Auto) 7.7 H, Eosinophils (%) (Auto) 2.0, Basophils (%) ( Auto) 0.4, Neutrophils # (Auto) 6.5, Lymphocytes # (Auto) 2.0, Monocytes # (Auto ) 0.7, Eosinophils # (Auto) 0.2, Basophils # (Auto) 0.0, Calcium Level 8.5 L Microbiology Microbiology 08/22/17 Blood Culture - Preliminary, Resulted No Growth after 48 hours. All Specime... 08/22/17 Blood Culture - Preliminary, Resulted No Growth after 48 hours. All Specime... 08/22/17 Blood Culture - Preliminary, Resulted Streptococcus Mitis 08/22/17 Blood Culture - Preliminary, Resulted No Growth after 48 hours. All Specime... 08/22/17 Blood Culture - Preliminary, Resulted No Growth after 48 hours. All Specime... 08/22/17 Blood Culture - Preliminary, Resulted No Growth after 48 hours. All Specime... 08/20/17 Urine Culture - Final, Complete JJ GONZALEZ MD Aug 25, 2017 09:25
[2017-08-25 09:54] LABS: ERYTHROCYTE SEDIMENTATION RATE 42 mm/hr (0-30)
[2017-08-25 14:00] VITALS: BP 128/78
[2017-08-25 22:00] VITALS: BP 124/73
[2017-08-26] MEDS: CIPROFLOXACIN 500 MG TAB PO SCH (05:53)
[2017-08-26 06:00] VITALS: BP 132/78
[2017-08-26 06:53] LABS: BASO # 0.1 10^3/uL (0.0-0.2); BASO % 0.6 % (0.0-1.0); EOS # 0.2 10^3/uL (0.0-0.50); EOS % 2.3 % (0.0-3.0); IMMATURE GRANULOCYTE % 0.4 % (0-0); LYMPH # 2.4 10^3/uL (1.5-4.5); LYMPH % 25.8 % (24.0-44.0); MEAN CORPUSCULAR HEMOGLOBIN 31.3 pg (27.0-33.0); MEAN CORPUSCULAR HGB CONC 32.4 g/dl (32.0-36.5); MEAN CORPUSCULAR VOLUME 96.9 fl (80.0-96.0); MONO # 0.7 10^3/uL (0.0-0.8); MONO % 7.7 % (0.0-5.0); NEUTROPHILS # 5.9 10^3/uL (1.8-7.7); NEUTROPHILS % 63.2 % (36.0-66.0); PLATELET COUNT, AUTOMATED 254 10^3/uL (150-450); RED CELL DISTRIBUTION WIDTH 14.8 % (11.5-14.5); WHITE BLOOD COUNT 9.4 10^3/uL (4.0-10.0)
[2017-08-26] MEDS: IPRATROPIUM 0.5MG/ALBUTEROL 2.5MG INH SOL UD 3ML (DUONEB)(J7620) NEB SCH ×2 (07:35→14:00)
[2017-08-26] MEDS: FUROSEMIDE 40 MG TAB PO SCH (09:36)
[2017-08-26] MEDS: ASPIRIN 81 MG CHEW TABLET PO SCH (09:36)
[2017-08-26] MEDS: metroNIDAZOLE (FLAGYL) 500 MG TAB PO SCH ×3 (09:36→21:15)
[2017-08-26] MEDS: MULTIVITAMINS/MINERALS THERAP 1 TAB PO SCH (09:36)
[2017-08-26] MEDS: NYSTATIN 100,000 UNITS/GM TOPICAL PWD 15 GM TOP SCH ×2 (09:37→21:17)
[2017-08-26] MEDS: METOPROLOL SUCC *XL* 25MG TAB (TopROL *XL*) PO SCH ×3 (09:37→21:15)
[2017-08-26] MEDS: POTASSIUM CHLORIDE 10 MEQ SR TABLET PO SCH ×2 (09:37→17:42)
[2017-08-26] MEDS: APIXABAN 5 MG TAB (ELIQUIS) PO SCH ×2 (09:37→17:41)
[2017-08-26] MEDS: ATORVASTATIN 20 MG TAB PO SCH (09:37)
--- NOTE | 2017-08-26 10:29 | IPNPDOC ---
Subjective Date Seen The patient was seen on 08/26/17. Subjective Chief Complaint/HPI The patient is a 77-year-old female admitted with a reason for visit of Left Flank Pain. Events since last encounter Pt without new concerns. She is feeling much better. Breathing is better, abd discomfort is also improved. General: Denies: Fatigue Constitutional: Denies: Chills, Fever Pulmonary: Denies: Dyspnea, Cough Cardiovascular: Denies: Chest Pain, Palpitations Gastrointestinal: Denies: Nausea, Vomiting, Diarrhea Neurological: Denies: Weakness Psych: Reports: Mood Normal Objective Physical Examination General Exam: Positive: Alert, Cooperative Chest Exam: Positive: Clear to auscultation, Normal air movement, Negative: Rales, Rhonchi, Wheezing Heart Exam: Positive: Rate Normal, Irregular Rhythm, Normal S1, Normal S2, Negative: Gallops, Rubs Abdomen Exam: Positive: Normal bowel sounds, Negative: Soft, Tenderness, Hepatospenomegaly Extremity Exam: Positive: Edema (trace ankle edema bilaterally) Assessment /Plan Problems (1) Bacteremia Status: Acute Problem Text: 08/26 - I spoke with Dr Thomas, he feels her risk for endocarditis is low, recommends complete treatment for diverticulitis and monitor for fevers or chills. Strep mitis is likely to be a skin contaminant. She is afebrile, without leukocytosis. CRP 2.14, hasn't been previously checked during this admission. 08/25/ blood cultures drawn 08/22/17 were positive for strep mitis. Patient has been afebrile throughout her hospital stay, WBCs are within normal limits, she feels well and at her baseline, and she does not appear ill. However, given questionable mitral valve vegetation and the fact that strep mitis is not a typical skin contaminant and can be seen with endocarditis, further evaluation is needed. Strep mitis could also be seeded from the gut with her recent diverticulitis diagnosis, though her CT A/P on 08/18 is not terribly impressive for diverticulitis, and no abscess or perforation was noted. Patient has been on antibiotics for 3 days when her cultures were drawn on 08/22 - Check ESR, CRP, and RF stat - Repeat blood cultures - Continue PO Cipro/flagyl - D/w Dr. Thomas tomorrow the need for a ROXY (2) Valvular vegetation Status: Acute Problem Text: 08/26 -I spoke with Dr Thomas who feels her risk of endocarditis remains low. He recommends completing Antibiotics for diverticulitis and monitor for fevers. She has refused invasive surgery, he feels as though given the low risk of endocarditits, ROXY is not necessary. 08/24: Patient seen by cardiology on 08/23, concern for endocarditis is low. 08/23: Echo done 08/21 EF about 45%, very enlarged Left Atrium with Severe Mitral valve dysfunction with suspicion for vegetation. non-mycotic vs bacterial endocarditis are possibilities. blood cultures have been ordered. Appearance c/w severe mitral valve disease, contributing to CHF. B/Cs pending. ESR = 54 (3) Acute on chronic diastolic CHF (congestive heart failure) Status: Acute Problem Text: 08/26 - remains euvolemic. 08/25: remains euvolemic on exam on HD lasix; check daily weights and I/Os 08/24: Creatinine stable at 1.29, will transition her to her home dose of Lasix 40mg orally once daily 08/23 -Clinically improving on IV Lasix. Creatinine up slightly at 1.25 Labs still pending this morning -Monitor RF and electrolytes CXR 08/21 consistent with CHF (4) Diverticulitis Status: Acute Response to Treatment: Stable Problem Text: Symptomatically improved on Cipro/Flagyl - D#8 (5) Chronic atrial fibrillation Problem Text: 08/24: Rate stable on Metoprolol 25mg TID, continue to monitor 08/23 - Rate improved with restart of Metoprolol. Rate back up this afternoon, with increase to 25mg TID, Cont Apixiban (6) Inability to walk Status: Acute Problem Text: 08/26 - Not yet safe per PT. 08/24: As per PT, patient still limited with ambulation. Continue to work with PT 08/23 - Cont PT. Not safe yet per PT yet - declined PT yesterday (7) UTI (urinary tract infection) Status: Resolved Response to Treatment: Stable Problem Text: 08/24: Urine culture showed no growth (8) CKD (chronic kidney disease), stage III Status: Chronic Response to Treatment: Stable Problem Text: Cr at baseline (9) HTN (hypertension) Status: Chronic Response to Treatment: Stable Problem Text: Continue Lasix and Metoprolol. ACEi and HCTZ are being held due to normal BPs currently - will add back if BP increases. (10) CAD (coronary artery disease) Status: Chronic Response to Treatment: Stable Problem Text: Cont ASA. SHARLENE on hold Plan/VTE VTE Prophylaxis Ordered?: Yes (Eliquis) Plan Diet: Continue Current Therapy: PT Medications: Start Antibiotics Diagnostics: Check Labs Anticipated Discharge: Home VS, I&O, 24H, Fishbone Vital Signs/I&O Vital Signs Date Time Temp Pulse Resp B/P (MAP) Pulse Ox O2 Delivery O2 Flow Rate FiO2 08/26/17 09:37 68 132/78 08/26/17 06:07 Room Air 08/26/17 06:00 96.2 18 98 08/21/17 14:00 0.5 I&O- Last 24 Hours up to 6 AM 08/27/17 06:00 Intake Total 520 ml Output Total 500 ml Balance 20 ml Laboratory Data 24H LABS Laboratory Tests 2 08/26/17 06:25: Immature Granulocyte % (Auto) 0.4H, White Blood Count 9.4, Red Blood Count 3.51L , Hemoglobin 11.0L, Hematocrit 34.0L, Mean Corpuscular Volume 96.9H, Mean Corpuscular Hemoglobin 31.3, Mean Corpuscular Hemoglobin Concent 32.4, Red Cell Distribution Width 14.8H, Platelet Count 254, Neutrophils (%) (Auto) 63.2, Lymphocytes (%) (Auto) 25.8, Monocytes (%) (Auto) 7.7H, Eosinophils (%) (Auto) 2.3, Basophils (%) (Auto) 0.6, Neutrophils # (Auto) 5.9, Lymphocytes # (Auto) 2.4, Monocytes # (Auto) 0.7, Eosinophils # (Auto) 0.2, Basophils # (Auto) 0.1, Immature Granulocyte # (Auto) 0.0, Nucleated Red Blood Cells % (auto) 0.0 CBC/BMP Laboratory Tests 08/26/17 06:25 Red Blood Count 3.51 L, Mean Corpuscular Volume 96.9 H, Mean Corpuscular Hemoglobin 31.3, Mean Corpuscular Hemoglobin Concent 32.4, Red Cell Distribution Width 14.8 H, Neutrophils (%) (Auto) 63.2, Lymphocytes (%) (Auto) 25.8, Monocytes (%) (Auto) 7.7 H, Eosinophils (%) (Auto) 2.3, Basophils (%) ( Auto) 0.6, Neutrophils # (Auto) 5.9, Lymphocytes # (Auto) 2.4, Monocytes # (Auto ) 0.7, Eosinophils # (Auto) 0.2, Basophils # (Auto) 0.1 Microbiology Microbiology 08/25/17 Blood Culture, Received Pending 08/25/17 Blood Culture - Preliminary, Resulted No growth after 24 hours . All specim... 08/22/17 Blood Culture - Preliminary, Resulted No Growth after 72 hours. All specime... 08/22/17 Blood Culture - Preliminary, Resulted No Growth after 72 hours. All specime... 08/22/17 Blood Culture - Preliminary, Resulted Streptococcus Mitis 08/22/17 Blood Culture - Preliminary, Resulted No Growth after 72 hours. All specime... 08/22/17 Blood Culture - Preliminary, Resulted No Growth after 72 hours. All specime... 08/22/17 Blood Culture - Preliminary, Resulted No Growth after 72 hours. All specime... 08/20/17 Urine Culture - Final, Complete DIPAK DELGADO PA-C Aug 26, 2017 10:29
[2017-08-26] MEDS: VITAMIN D 1,000 INTERNATIONAL UNITS TABLET PO SCH (10:51)
[2017-08-26 14:00] VITALS: BP 127/71
[2017-08-26 22:00] VITALS: BP 142/78
[2017-08-27 06:00] VITALS: BP 126/60
[2017-08-27] MEDS: CIPROFLOXACIN 500 MG TAB PO SCH (06:36)
[2017-08-27 07:27] LABS: BASO % 0.4 % (0.0-1.0); EOS # 0.2 10^3/uL (0.0-0.50); EOS % 2.2 % (0.0-3.0); IMMATURE GRANULOCYTE % 0.3 % (0-0); LYMPH # 2.1 10^3/uL (1.5-4.5); LYMPH % 21.3 % (24.0-44.0); MEAN CORPUSCULAR HEMOGLOBIN 30.8 pg (27.0-33.0); MEAN CORPUSCULAR HGB CONC 32.4 g/dl (32.0-36.5); MEAN CORPUSCULAR VOLUME 95.3 fl (80.0-96.0); MONO # 0.8 10^3/uL (0.0-0.8); MONO % 7.9 % (0.0-5.0); NEUTROPHILS # 6.5 10^3/uL (1.8-7.7); NEUTROPHILS % 67.9 % (36.0-66.0); PLATELET COUNT, AUTOMATED 241 10^3/uL (150-450); WHITE BLOOD COUNT 9.6 10^3/uL (4.0-10.0)
[2017-08-27] MEDS ORDERED: NORCO, ANEXSIA 5/325MG TABLET (HYDROcodone/ACETAMINOPHEN) PO PRN (07:45)
[2017-08-27] MEDS ORDERED: NORCO, ANEXSIA 5/325MG TABLET (HYDROcodone/ACETAMINOPHEN) PO ONE (08:00)
[2017-08-27] MEDS: VITAMIN D 1,000 INTERNATIONAL UNITS TABLET PO SCH (08:41)
[2017-08-27] MEDS: POTASSIUM CHLORIDE 10 MEQ SR TABLET PO SCH (08:41)
[2017-08-27] MEDS: metroNIDAZOLE (FLAGYL) 500 MG TAB PO SCH (08:41)
[2017-08-27] MEDS: FUROSEMIDE 40 MG TAB PO SCH (08:41)
[2017-08-27] MEDS: APIXABAN 5 MG TAB (ELIQUIS) PO SCH (08:41)
[2017-08-27] MEDS: ATORVASTATIN 20 MG TAB PO SCH (08:41)
[2017-08-27] MEDS: MULTIVITAMINS/MINERALS THERAP 1 TAB PO SCH (08:41)
[2017-08-27 08:42] VITALS: BP 126/60
[2017-08-27] MEDS: ASPIRIN 81 MG CHEW TABLET PO SCH (08:42)
[2017-08-27] MEDS: METOPROLOL SUCC *XL* 25MG TAB (TopROL *XL*) PO SCH (08:42)
[2017-08-27] MEDS: NYSTATIN 100,000 UNITS/GM TOPICAL PWD 15 GM TOP SCH (08:43)
[2017-08-27] MEDS ORDERED: FLAG500T PO (12:43)
[2017-08-27] MEDS ORDERED: METO1TAB32 PO (12:43)
[2017-08-27] MEDS ORDERED: FURO40TA2 PO (12:43)
[2017-08-27] MEDS ORDERED: CIPR500T3 PO (12:43)
--- NOTE | 2017-08-27 13:38 | DSES ---
DATE OF ADMISSION: 08/18/2017 DATE OF DISCHARGE: BRIEF HISTORY AND PHYSICAL: The patient is a 77-year-old patient of Dr. Falk who presented with abdominal pain. Denied nausea, vomiting, diarrhea, or constipation. PAST MEDICAL HISTORY: Significant for hypertension, coronary artery disease, hyperlipidemia, bilateral osteoarthritis of the knees, impaired fasting glucose, mitral regurgitation, and AV block. PERTINENT LABORATORIES ON ADMISSION: Sodium 135, potassium 3.9, BUN 29, creatinine 1.25, glucose 121. White count 11, hemoglobin normal. CT of the abdomen and pelvis showed diffuse diverticulosis, along with mural thickening of the mid sigmoid colon. May reflect chronic changes related to prior diverticulitis versus early sigmoid diverticulitis. No free fluid. No perforation or obstruction. HOSPITAL COURSE: 1. The patient was admitted for diverticulitis. Treated with Cipro and Flagyl. Clinically improved. Has been switched over to oral antibiotics and will finish 2 more days to complete a 10-day course of antibiotics. 2. Acute on chronic diastolic congestive heart failure. She developed some heart failure requiring intravenous (IV) Lasix. Her respiratory status improved, and she was switched to her usual home dose of Lasix and remains euvolemic. 3. Severe mitral insufficiency with a possible vegetation. The patient had an echocardiogram done while in the hospital due to her decompensated congestive heart failure. Echocardiogram showed normal left ventricular size, ejection fraction of 40% to 45%, degenerative abnormalities in the mitral valve, likely flail small segment of the posterior mitral leaflet, and mobile echodensity on the atrial surface of the posterior mitral leaflet suggestive of vegetation, with resulting severe mitral insufficiency, trivial mitral stenosis, high central venous pressure, and at least moderate pulmonary hypertension. Dr. Thomas saw the patient in consultation. All blood cultures were negative except one showed Streptococcus mitis, Staphylococcus capitis, and Staphylococcus warneri, felt to be most likely a skin contaminant. Sedimentation rate was only 42. She was afebrile. Her white count was normal, and ultimately further discussions with Dr. Thomas was felt that he feels her risk for endocarditis is low. She should complete her antibiotics and monitor for any fevers, and a transesophageal echocardiogram (ROXY) was not felt to be necessary. However, she does have severe mitral valve disease, which he did not feel was an acute event. Her left ventricular function has declined, and often, this is felt to, therefore, be beyond the point where the patient is a candidate for valve replacement. This was discussed with the patient who would not want to have surgery regardless. Therefore, medical management with diuretics and vasodilators if tolerated has been recommended. She will followup with Dr. Falk and followup with Dr. Thomas. 4. Chronic atrial fibrillation. Her rate is stable on metoprolol. She is on Eliquis. Her metoprolol dose was increased slightly to achieve better rate control, and she is tolerating this well. Rates are in the 70s on discharge. DISPOSITION: She is stable for discharge home. Diet no-added salt. Activity as tolerated. MEDICATIONS: - Cipro 500 mg daily for 2 days - furosemide 40 mg daily - metoprolol 25 mg three times a day. This is an increased dose. - Flagyl 500 mg three times a day - hydrocodone one tablet twice a day as needed for pain - Eliquis 5 mg twice a day - aspirin 81 mg daily - atorvastatin 40 mg daily - vitamin E 2000 international units daily - multivitamin daily - potassium 20 mEq twice a day - Her amlodipine and fosinopril and hydrochlorothiazide and low-dose metoprolol have been held. DISCHARGE DIAGNOSES: 1. Diverticulitis. 2. Degenerative mitral valve with severe mitral insufficiency, an echodensity on the atrial surface of the posterior mitral leaflet suggestive of vegetation but felt not to be endocarditis. 3. Systolic congestive heart failure with ejection fraction of 40%. 4. Osteoarthritis of the knees.
== END 2017-08-27 14:55 | disposition home health service (06) | DRG 391 ==
LOC: M ED 17:52 → EDBD 17:52 → M ED INP 23:03 → UNDOADMIN 23:03 → M MS5PR 08-19 00:01 → OBSVTOIN 08-20 15:08 → M MS5PR 08-21 12:45
PROVIDERS: ADMIT Internal Medicine; ATTEND Family Medicine
DX: K57.32 Diverticulitis of large intestine without perforation or abscess without bleeding (principal); I50.33 Acute on chronic diastolic (congestive) heart failure; N39.0 Urinary tract infection, site not specified; I13.0 Hypertensive heart and chronic kidney disease with heart failure and stage 1 through stage 4 chronic kidney disease, or unspecified chronic kidney disease; I95.1 Orthostatic hypotension; I34.0 Nonrheumatic mitral (valve) insufficiency; I48.2 Chronic atrial fibrillation; Z79.899 Other long term (current) drug therapy; M17.2 Bilateral post-traumatic osteoarthritis of knee; I44.0 Atrioventricular block, first degree; I25.10 Atherosclerotic heart disease of native coronary artery without angina pectoris; E78.5 Hyperlipidemia, unspecified; M41.26 Other idiopathic scoliosis, lumbar region; Z79.82 Long term (current) use of aspirin

== ENCOUNTER → 2017-09-10 | Outpatient (REF) | payer OTHER ==
[~2017-09-10] MED LIST changes: +AMLO2.5T PO; +AMLO5TAB2; +ASPI81CH PO; +ATOR40TA75 PO; +CIPR500T3 PO; +ELIQ5TAB PO; +FLAG500T PO; +FOSI40TA PO; +FURO40TA2 PO; +HYDR-3713 PO; +METO1TAB32 PO; +METO1TAB87 PO; +POTA10TA16 PO; +RA A; +VITA200015 PO; +VITMTA PO
[2017-09-10 12:28] LABS: CALCIUM LEVEL 9.5 MG/DL (8.8-10.2); CREATININE FOR GFR 1.04 MG/DL (0.55-1.02); GLOMERULAR FILTRATION RATE 54.4 (>39); POTASSIUM SERUM 4.5 MEQ/L (3.5-5.1)
== END ==
LOC: M SFHCPLAZ 10:59
PROVIDERS: ATTEND Physician Assistant Medical
DX: I50.9 Heart failure, unspecified (principal)

== ENCOUNTER → 2017-10-04 | Outpatient (REF) | payer OTHER ==
[2017-10-04 12:07] LABS: ANION GAP 8 MEQ/L (8-16); BLOOD UREA NITROGEN 21 MG/DL (7-18); CALCIUM LEVEL 9.1 MG/DL (8.8-10.2); CARBON DIOXIDE LEVEL 28 MEQ/L (21-32); CHLORIDE LEVEL 108 MEQ/L (98-107); CREATININE FOR GFR 1.05 MG/DL (0.55-1.02); GLOMERULAR FILTRATION RATE 53.8 (>39); GLUCOSE, FASTING 91 MG/DL (83-110); POTASSIUM SERUM 4.3 MEQ/L (3.5-5.1); SODIUM LEVEL 144 MEQ/L (136-145)
== END ==
LOC: M SFHCPLAZ 09:15
DX: I50.9 Heart failure, unspecified (principal)
CPT/HCPCS: 80048

== ENCOUNTER → 2018-03-31 | Outpatient (REF) | payer OTHER ==
[2018-03-31 12:21] LABS: BASO % 0.3 % (0.0-1.0); EOS # 0.2 10^3/uL (0.0-0.50); EOS % 1.6 % (0.0-3.0); HEMATOCRIT 40.9 % (36.0-47.0); HEMOGLOBIN 13.2 g/dl (12.0-15.5); IMMATURE GRANULOCYTE % 0.2 % (0-3.0); LYMPH % 32.7 % (24.0-44.0); MEAN CORPUSCULAR HEMOGLOBIN 29.9 pg (27.0-33.0); MEAN CORPUSCULAR HGB CONC 32.3 g/dl (32.0-36.5); MEAN CORPUSCULAR VOLUME 92.7 fl (80.0-96.0); MONO # 0.5 10^3/uL (0.0-0.8); MONO % 5.1 % (0.0-5.0); NEUTROPHILS # 5.5 10^3/uL (1.8-7.7); NEUTROPHILS % 60.1 % (36.0-66.0); PLATELET COUNT, AUTOMATED 285 10^3/uL (150-450); RED BLOOD COUNT 4.41 10^6/uL (4.00-5.40); RED CELL DISTRIBUTION WIDTH 14.9 % (11.5-14.5); RETIC HEMOGLOBIN EQUIVALENT 34.4 pg (24-36); RETICULOCYTE # 52.9 10^9/L (17-77); RETICULOCYTE % 1.2 % (0.5-1.5); WHITE BLOOD COUNT 9.1 10^3/uL (4.0-10.0)
[2018-03-31 12:39] LABS: ALBUMIN 3.6 GM/DL (3.2-5.2); ALBUMIN/GLOBULIN RATIO 0.95 (1.00-1.93); ALKALINE PHOSPHATASE 145 U/L (45-117); ALT/SGPT 23 U/L (12-78); ANION GAP 8 MEQ/L (8-16); AST/SGOT 20 U/L (7-37); BILIRUBIN,TOTAL 0.7 MG/DL (0.2-1.0); BLOOD UREA NITROGEN 22 MG/DL (7-18); CALCIUM LEVEL 9.8 MG/DL (8.8-10.2); CARBON DIOXIDE LEVEL 27 MEQ/L (21-32); CHLORIDE LEVEL 108 MEQ/L (98-107); CREATININE FOR GFR 1.19 MG/DL (0.55-1.30); GLOMERULAR FILTRATION RATE 46.5 (>32); GLUCOSE, FASTING 111 MG/DL (70-100); MAGNESIUM LEVEL 2.2 MG/DL (1.8-2.4); NT-PRO BNP 5071 PG/ML (<450); POTASSIUM SERUM 4.4 MEQ/L (3.5-5.1); SODIUM LEVEL 143 MEQ/L (136-145); TOTAL PROTEIN 7.4 GM/DL (6.4-8.2)
[2018-03-31 12:49] LABS: PTH INTACT 84.8 PG/ML (18.5-88.0); TOTAL 25(OH) VITAMIN D 42.2 NG/ML (30.0-100.0)
[2018-03-31 13:59] LABS: ESTIMATED AVERAGE GLUCOSE 120 MG/DL (60-110); HEMOGLOBIN A1c 5.8 %
== END ==
LOC: M SFHCPLAZ 09:04
DX: R73.01 Impaired fasting glucose (principal); N18.3 Chronic kidney disease, stage 3 (moderate); D75.89 Other specified diseases of blood and blood-forming organs; E55.9 Vitamin D deficiency, unspecified
CPT/HCPCS: 83735

== ENCOUNTER → 2018-04-07 | Outpatient (REF) | payer OTHER | LOC: M SFHCPLAZ 12:13 | DX: I50.22 Chronic systolic (congestive) heart failure (principal); Z53.8 Procedure and treatment not carried out for other reasons ==

== ENCOUNTER → 2018-04-25 | Outpatient (REF) | payer OTHER ==
[2018-04-25 12:28] LABS: ALBUMIN 3.5 GM/DL (3.2-5.2); ANION GAP 10 MEQ/L (8-16); BLOOD UREA NITROGEN 20 MG/DL (7-18); CALCIUM LEVEL 9.7 MG/DL (8.8-10.2); CARBON DIOXIDE LEVEL 27 MEQ/L (21-32); CHLORIDE LEVEL 106 MEQ/L (98-107); GLOMERULAR FILTRATION RATE 50.9 (>32); GLUCOSE, FASTING 94 MG/DL (70-100); MAGNESIUM LEVEL 2.1 MG/DL (1.8-2.4); NT-PRO BNP 4175 PG/ML (<450); PHOSPHORUS LEVEL 4.1 MG/DL (2.5-4.9); POTASSIUM SERUM 4.3 MEQ/L (3.5-5.1); SODIUM LEVEL 143 MEQ/L (136-145)
== END ==
LOC: M SFHCPLAZ 10:17
DX: I50.22 Chronic systolic (congestive) heart failure (principal)
CPT/HCPCS: 83735

== ENCOUNTER → 2018-08-29 | Outpatient (REF) | payer OTHER ==
[~2018-08-29] MED LIST changes: -AMLO2.5T PO; +AMLO2.5T2 PO; -AMLO5TAB2; +AMLO5TAB4; -FOSI40TA PO; +FOSI40TA2 PO
[2018-08-29 13:18] LABS: BASO % 0.4 % (0.0-1.0); EOS # 0.1 10^3/uL (0.0-0.50); EOS % 1.3 % (0.0-3.0); HEMATOCRIT 40.4 % (36.0-47.0); HEMOGLOBIN 13.1 g/dl (12.0-15.5); LYMPH # 2.1 10^3/uL (1.5-4.5); LYMPH % 22.2 % (24.0-44.0); MEAN CORPUSCULAR HGB CONC 32.4 g/dl (32.0-36.5); MEAN CORPUSCULAR VOLUME 95.5 fl (80.0-96.0); MONO # 0.5 10^3/uL (0.0-0.8); MONO % 5.4 % (0.0-5.0); NEUTROPHILS # 6.6 10^3/uL (1.8-7.7); NEUTROPHILS % 70.4 % (36.0-66.0); PLATELET COUNT, AUTOMATED 256 10^3/uL (150-450); RED BLOOD COUNT 4.23 10^6/uL (4.00-5.40); WHITE BLOOD COUNT 9.4 10^3/uL (4.0-10.0)
[2018-08-29 13:53] LABS: ALBUMIN 3.7 GM/DL (3.2-5.2); BILIRUBIN,TOTAL 0.8 MG/DL (0.2-1.0); C REACTIVE PROTEIN QUANTITATIV 0.38 MG/DL (0.00-0.30); CALCIUM LEVEL 9.6 MG/DL (8.8-10.2); CHOLESTEROL RISK RATIO 2.679 (<5); CREATININE FOR GFR 1.15 MG/DL (0.55-1.30); GLOMERULAR FILTRATION RATE 48.3 (>32); MAGNESIUM LEVEL 2.3 MG/DL (1.8-2.4); POTASSIUM SERUM 4.7 MEQ/L (3.5-5.1)
== END ==
LOC: M SFHCPLAZ 11:38
PROVIDERS: ATTEND Family Medicine
DX: I50.22 Chronic systolic (congestive) heart failure (principal); N18.3 Chronic kidney disease, stage 3 (moderate); E78.2 Mixed hyperlipidemia
CPT/HCPCS: 36415; 80053; 80061; 82550; 83735; 83880; 85025; 85046; 86140; 90682; G0008; G0463

== ENCOUNTER → 2019-02-10 | Outpatient (REF) | payer MEDICARE ==
[~2019-02-10] MED LIST changes: -/HCTZ25TA PO; -AMLO2.5T2 PO; +AMLO2.5T3 PO; -AMLO5TAB4; +AMLO5TAB6; -ASPI81CH PO; +ASPI81CH49 PO; -FOSI40TA2 PO; +FOSI40TA3 PO; +HYDR-3644 PO; -RA A; +[UNRECOGNIZED DRUG - CODE]
[2019-02-10 16:23] LABS: ALBUMIN 3.7 GM/DL (3.2-5.2); BILIRUBIN,TOTAL 0.8 MG/DL (0.2-1.0); CALCIUM LEVEL 10.1 MG/DL (8.8-10.2); CREATININE FOR GFR 1.25 MG/DL (0.55-1.30); GLOMERULAR FILTRATION RATE 43.9 (>32); MAGNESIUM LEVEL 2.3 MG/DL (1.8-2.4); POTASSIUM SERUM 5.3 MEQ/L (3.5-5.1); TOTAL PROTEIN 6.6 GM/DL (6.4-8.2)
[2019-02-10 16:24] LABS: BASO % 0.5 % (0.0-1.0); EOS # 0.2 10^3/uL (0.0-0.50); EOS % 1.9 % (0.0-3.0); HEMATOCRIT 43.4 % (36.0-47.0); HEMOGLOBIN 13.4 g/dl (12.0-15.5); LYMPH # 2.6 10^3/uL (1.5-4.5); LYMPH % 31.7 % (24.0-44.0); MEAN CORPUSCULAR HGB CONC 30.9 g/dl (32.0-36.5); MEAN CORPUSCULAR VOLUME 97.3 fl (80.0-96.0); MONO # 0.6 10^3/uL (0.0-0.8); MONO % 6.9 % (0.0-5.0); NEUTROPHILS # 4.7 10^3/uL (1.8-7.7); NEUTROPHILS % 58.6 % (36.0-66.0); PLATELET COUNT, AUTOMATED 211 10^3/uL (150-450); RED BLOOD COUNT 4.46 10^6/uL (4.00-5.40); WHITE BLOOD COUNT 8.1 10^3/uL (4.0-10.0)
== END ==
LOC: M SFHCPLAZ 12:04
PROVIDERS: ATTEND Family Medicine
DX: I50.22 Chronic systolic (congestive) heart failure (principal); D75.89 Other specified diseases of blood and blood-forming organs; R73.01 Impaired fasting glucose
CPT/HCPCS: 80053; 82607; 83036; 83525; 83735; 83880; 85025; 85046; G0463

== ENCOUNTER → 2019-03-16 | Outpatient (REF) | payer MEDICARE ==
[2019-03-16 11:28] LABS: ALBUMIN 3.7 GM/DL (3.2-5.2); CALCIUM LEVEL 9.4 MG/DL (8.8-10.2); CREATININE FOR GFR 1.17 MG/DL (0.55-1.30); GLOMERULAR FILTRATION RATE 47.3 (>32); MAGNESIUM LEVEL 2.4 MG/DL (1.8-2.4); PHOSPHORUS LEVEL 3.6 MG/DL (2.5-4.9); POTASSIUM SERUM 4.3 MEQ/L (3.5-5.1)
== END ==
LOC: M SFHCPLAZ 08:31
PROVIDERS: ATTEND Nurse Practitioner Family
DX: I50.22 Chronic systolic (congestive) heart failure (principal)
CPT/HCPCS: 36415; 80069; 83735; 83880; G0463

== ENCOUNTER → 2019-07-16 | Outpatient (REF) | payer MEDICARE ==
[2019-07-16 18:11] LABS: BASO % 0.5 % (0.0-1.0); EOS # 0.1 10^3/uL (0.0-0.5); EOS % 1.2 % (0.0-3.0); HEMATOCRIT 42.9 % (36.0-47.0); HEMOGLOBIN 14.2 g/dl (12.0-15.5); LYMPH # 2.8 10^3/uL (1.5-5.0); LYMPH % 31.5 % (24.0-44.0); MEAN CORPUSCULAR HEMOGLOBIN 32.7 pg (27.0-33.0); MEAN CORPUSCULAR HGB CONC 33.1 g/dl (32.0-36.5); MEAN CORPUSCULAR VOLUME 98.8 fl (80.0-96.0); MONO # 0.6 10^3/uL (0.0-0.8); MONO % 6.3 % (0.0-5.0); NEUTROPHILS # 5.3 10^3/uL (1.5-8.5); NEUTROPHILS % 60.3 % (36.0-66.0); PLATELET COUNT, AUTOMATED 220 10^3/uL (150-450); RED BLOOD COUNT 4.34 10^6/uL (4.00-5.40); WHITE BLOOD COUNT 8.8 10^3/uL (4.0-10.0)
[2019-07-16 18:31] LABS: ALBUMIN 3.4 GM/DL (3.2-5.2); BILIRUBIN,TOTAL 0.9 MG/DL (0.2-1.0); CALCIUM LEVEL 9.7 MG/DL (8.8-10.2); CREATININE FOR GFR 1.01 MG/DL (0.55-1.30); POTASSIUM SERUM 4.6 MEQ/L (3.5-5.1); TOTAL PROTEIN 6.8 GM/DL (6.4-8.2)
[2019-07-16 18:36] LABS: TOTAL 25(OH) VITAMIN D 56.4 NG/ML (30.0-100.0)
[2019-07-16 18:37] LABS: PTH INTACT 67.8 PG/ML (18.5-88.0)
== END ==
LOC: M SFHCPLAZ 15:04
PROVIDERS: ATTEND Family Medicine
DX: I50.22 Chronic systolic (congestive) heart failure (principal); N18.3 Chronic kidney disease, stage 3 (moderate); R73.01 Impaired fasting glucose; Z23 Encounter for immunization
CPT/HCPCS: 36415; 80053; 82306; 83036; 83880; 83970; 85025; 90682; G0008; G0463

== ENCOUNTER 2019-11-22 09:15 | Inpatient (IN) | payer MEDICARE ==
[~2019-11-22] VITALS: Ht 149.9 cm; Wt 78.6 kg
[~2019-11-22 09:15] MED LIST changes: +ASPI-256; -[UNRECOGNIZED DRUG - CODE]
[2019-11-22] MEDS ORDERED: SPIR-10 PO (09:31)
[2019-11-22 10:22] LABS: BASO % 0.3 % (0.0-1.0); EOS % 0.2 % (0.0-3.0); HEMATOCRIT 41.5 % (36.0-47.0); HEMOGLOBIN 13.8 g/dl (12.0-15.5); LYMPH # 1.8 10^3/uL (1.5-5.0); LYMPH % 14.5 % (24.0-44.0); MEAN CORPUSCULAR HEMOGLOBIN 32.7 pg (27.0-33.0); MEAN CORPUSCULAR HGB CONC 33.3 g/dl (32.0-36.5); MEAN CORPUSCULAR VOLUME 98.3 fl (80.0-96.0); MONO # 0.8 10^3/uL (0.0-0.8); MONO % 6.3 % (0.0-5.0); NEUTROPHILS # 9.4 10^3/uL (1.5-8.5); NEUTROPHILS % 78.3 % (36.0-66.0); PLATELET COUNT, AUTOMATED 230 10^3/uL (150-450); RED BLOOD COUNT 4.22 10^6/uL (4.00-5.40); WHITE BLOOD COUNT 12.1 10^3/uL (4.0-10.0)
[2019-11-22 10:39] LABS: ERYTHROCYTE SEDIMENTATION RATE 57 mm/hr (0-30)
[2019-11-22 10:46] LABS: ALBUMIN 3.1 GM/DL (3.2-5.2); ALT/SGPT 22 U/L (12-78); BILIRUBIN,DIRECT 0.4 MG/DL (0.0-0.2); BLOOD UREA NITROGEN 25 MG/DL (7-18); CALCIUM LEVEL 8.9 MG/DL (8.8-10.2); CARBON DIOXIDE LEVEL 26 MEQ/L (21-32); CHLORIDE LEVEL 104 MEQ/L (98-107); CK-MB VALUE MASS 1.2 NG/ML (<3.6); CPK CREATINE PHOSPHOKINASE 37 U/L (26-192); GLOMERULAR FILTRATION RATE 45.9 (>32); GLUCOSE, FASTING 116 MG/DL (70-100); MB/CK RELATIVE INDEX 3.24 (< OR =4); NT-PRO BNP 2971 PG/ML (<450); POTASSIUM SERUM 4.1 MEQ/L (3.5-5.1); SODIUM LEVEL 138 MEQ/L (136-145); THYROXINE (T4) 10.8 UG/DL (4.5-12.0); TROPONIN I < 0.02 NG/ML (< 0.10); URIC ACID 9.4 MG/DL (2.6-6.0)
--- NOTE | 2019-11-22 10:57 | REP ---
RIGHT WRIST, FOUR VIEWS: Four views right wrist performed. There is no evidence of acute fracture or dislocation. There is osteopenia. Moderate narrowing and subchondral sclerosis are seen at the joint between the scaphoid and trapezium as well as the trapezium at base of 1st metacarpal. There is spurring of the base of the 1st metacarpal. IMPRESSION: Osteopenia. No acute fracture or dislocation. Electronically Signed by Davie Alvarez MD 11/22/2019 06:33 P
--- NOTE | 2019-11-22 10:58 | REP ---
RIGHT SHOULDER, THREE VIEWS: Three views, right shoulder performed. No acute fracture or dislocation is seen. There is severe joint space narrowing, subchondral sclerosis, and moderate spurring at the glenohumeral joint. There appear to be two calcific bodies at the inferior margin of the joint up to 1.3 cm in diameter. IMPRESSION: Arthritic changes with no acute fracture or dislocation. Electronically Signed by Davie Alvarez MD 11/22/2019 06:33 P
--- NOTE | 2019-11-22 11:01 | REP ---
RIGHT HAND, FOUR VIEWS: Four views, right hand performed. No acute fracture or dislocation is seen. There is chondrocalcinosis at the wrist joint. There is moderate narrowing and subchondral sclerosis at the joint between the scaphoid and trapezium as well as trapezium and base of 1st metacarpal with spurring at the base of the 1st metacarpal. There is moderate narrowing of the proximal and distal interphalangeal joints with moderately severe narrowing and spurring at the 2nd distal interphalangeal joint with mild angulation deformity at the joint. IMPRESSION: Degenerative changes without fracture or dislocation. Electronically Signed by Davie Alvarez MD 11/22/2019 06:34 P
--- NOTE | 2019-11-22 11:03 | REP ---
CHEST, SINGLE VIEW: Single view of the chest is performed and compared to prior studies, most recently 08/21/2017. There is moderate cardiomegaly again noted. There is no acute infiltrate or pulmonary edema. There is mild calcification of the thoracic aorta. Mediastinal silhouette is unremarkable. There is curvature of the thoracic spine convex to the right with degenerative changes. Metallic prosthesis is noted of the proximal left humerus. IMPRESSION: Moderate cardiomegaly. No acute infiltrate or pulmonary edema. Electronically Signed by Davie Alvarez MD 11/22/2019 06:34 P
--- NOTE | 2019-11-22 11:13 | REP ---
Right upper extremity duplex Doppler venous ultrasound. Real time compression and duplex Doppler evaluation of the right upper extremity deep venous system is performed. The right subclavian, jugular, axillary, brachial, basilic and cephalic veins are fully compressible where accessible with transducer pressure, and demonstrate no intraluminal thrombus and normal venous waveforms. There is no evidence of deep venous thrombosis. Impression: No evidence of deep venous thrombosis of the right upper extremity deep vein system. Electronically Signed by Davie Alvarez MD 11/22/2019 11:04 A
[2019-11-22 11:25] LABS: INR 1.67; PROTHROMBIN TIME 19.4 SECONDS (11.8-14.0)
[2019-11-22] MEDS ORDERED: VANCOMYCIN HCL 1,000 MG, VIAL MATE ADAPTER 1 EACH in D5W 250 ML IV ONE (13:45)
[2019-11-22] MEDS ORDERED: NORCO, ANEXSIA 5/325MG TABLET (HYDROcodone/ACETAMINOPHEN) PO ONE (14:00)
[2019-11-22] MEDS ORDERED: METO25TA4 PO (14:30)
[2019-11-22] MEDS ORDERED: VITAD1000T PO (14:30)
[2019-11-22] MEDS ORDERED: GNP8.6TA PO (14:30)
[2019-11-22] MEDS ORDERED: PERCOCET 5MG/325MG TAB PO PRN (15:00)
[2019-11-22] MEDS ORDERED: MORPHINE 2 MG/ML 1ML VIAL (J2270) IV PRN (15:00)
[2019-11-22 15:31] LABS: RHEUMATOID FACTOR QUANT < 10.0 IU/ML (<15.0)
[2019-11-22] MEDS: COLCHICINE 0.6 MG TAB PO SCH ×2 (16:00→21:44)
[2019-11-22 16:20] VITALS: BP 129/78
[2019-11-22] MEDS: cefTRIAXone SOD 2 GM in D5W MINI-BAG PLUS 50 ML IV SCH (16:57)
[2019-11-22] MEDS: FUROSEMIDE 40 MG TAB PO SCH (16:57)
[2019-11-22] MEDS: METOPROLOL TART 25 MG TABLET PO SCH ×2 (16:58→21:44)
[2019-11-22] MEDS: predniSONE 20 MG TAB PO SCH (16:58)
--- NOTE | 2019-11-22 20:44 | ECGEPIP ---
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
[2019-11-22 21:30] VITALS: BP 114/72
--- NOTE | 2019-11-22 21:34 | IPNPDOC ---
Text Note Date of Service The patient was seen on 11/22/19. NOTE Uric acid level is elevated likely from diuretic therapy. She has no previous hx of gout. Will start colchicine 0.6 mg po TID for next 24 hours then can decrease to bid, prednisone 40 mg daily. If symptoms improved and blood cx and CT hand negative can discontinue abx. Patient updated at bedside by me. VS,Adalbonmelissa, I+O VS, Melvine, I+O Laboratory Tests 11/22/19 09:58 Vital Signs Date Time Temp Pulse Resp B/P (MAP) Pulse Ox O2 Delivery O2 Flow Rate FiO2 11/22/19 17:09 18 Room Air 11/22/19 16:58 110 130/78 11/22/19 16:20 98.4 95 DEL SHIELDS MD Nov 22, 2019 21:34
[2019-11-22] MEDS: ASPIRIN 81 MG CHEW TABLET PO SCH (21:43)
[2019-11-22] MEDS: APIXABAN 5 MG TAB (ELIQUIS) PO SCH (21:44)
[2019-11-22] MEDS: SENNA 8.6 MG TAB (SENOKOT) PO SCH (21:44)
[2019-11-22] MEDS: ATORVASTATIN 20 MG TAB PO SCH (21:44)
[2019-11-23 06:00] VITALS: BP 117/77
[2019-11-23 06:08] LABS: HEMOGLOBIN 13.2 g/dl (12.0-15.5); MEAN CORPUSCULAR HEMOGLOBIN 33.2 pg (27.0-33.0); MEAN CORPUSCULAR HGB CONC 33.8 g/dl (32.0-36.5); PLATELET COUNT, AUTOMATED 235 10^3/uL (150-450); RED BLOOD COUNT 3.98 10^6/uL (4.00-5.40); WHITE BLOOD COUNT 8.8 10^3/uL (4.0-10.0)
[2019-11-23 06:31] LABS: C REACTIVE PROTEIN QUANTITATIV 12.9 MG/DL (0.00-0.30); CALCIUM LEVEL 8.8 MG/DL (8.8-10.2); CREATININE FOR GFR 1.07 MG/DL (0.55-1.30); GLOMERULAR FILTRATION RATE 52.4 (>32); POTASSIUM SERUM 4.2 MEQ/L (3.5-5.1)
--- NOTE | 2019-11-23 07:40 | REP ---
CT RIGHT HAND WITHOUT CONTRAST: CT right hand performed without IV contrast. Axial images are obtained with sagittal and coronal reconstruction images. No acute fracture or dislocation is seen. There is diffuse osteopenia. There is moderate narrowing between the scaphoid and trapezium as well as between the trapezium and base of first metacarpal with moderate spurring of the trapezium and base of first metacarpal. There is diffuse narrowing of proximal and distal interphalangeal joints with spurring at the second distal interphalangeal joint. No soft tissue abnormality is seen. IMPRESSION: Degenerative changes without fracture or dislocation. Electronically Signed by Davie Alvarez MD 11/23/2019 12:02 P
[2019-11-23] MEDS: APIXABAN 5 MG TAB (ELIQUIS) PO SCH ×2 (08:38→21:17)
[2019-11-23] MEDS: VITAMIN D 1,000 INTERNATIONAL UNITS TABLET PO SCH (08:38)
[2019-11-23] MEDS: FUROSEMIDE 40 MG TAB PO SCH (08:38)
[2019-11-23] MEDS: MULTIVITAMINS/MINERALS THERAP 1 TAB PO SCH (08:38)
[2019-11-23] MEDS: METOPROLOL TART 25 MG TABLET PO SCH ×3 (08:38→21:17)
[2019-11-23] MEDS: predniSONE 20 MG TAB PO SCH (08:39)
[2019-11-23] MEDS: COLCHICINE 0.6 MG TAB PO SCH ×3 (08:39→21:17)
[2019-11-23] MEDS: SPIRONOLACTONE 25 MG TAB PO SCH (08:39)
[2019-11-23] MEDS ORDERED: VANCOMYCIN HCL 1,000 MG, VIAL MATE ADAPTER 1 EACH in D5W 250 ML IV SCH (09:00)
--- NOTE | 2019-11-23 09:40 | IPNPDOC ---
Subjective Date Seen The patient was seen on 11/23/19. Subjective Chief Complaint/HPI cellulitis Events since last encounter right hand swelling and cellulitis. Was started on Ceftriaxone. Also noted ot have elevated uric acid and was given colchicine and prednisone. aptient note improvement in pain and swelling. Constitutional: Denies: Chills, Fever, Night Sweats Pulmonary: Denies: Dyspnea, Cough Cardiovascular: Denies: Chest Pain, Palpitations, Orthopnea, Paroxysmal Noc. Dyspnea, Edema, Lt Headedness, Other Symptoms Objective Physical Examination General Exam: Positive: Alert, No Acute Distress Chest Exam: Positive: Clear to auscultation, Normal air movement Heart Exam: Positive: Rate Normal, Regular Rhythm, Normal S1, Normal S2; Negative: Murmurs, Rubs Extremity Exam: Positive: Normal pulses; Negative: Clubbing, Cyanosis, Edema Psych Exam: Positive: Mental status NL, Mood NL, Oriented x 3 Assessment /Plan Problems (1) Hyperuricemia Status: Acute Problem Text: probably exacerbated by chronic diuretic/ EthOH use 11/21 UA 9.4 (no previous in [place])-+ allo 100 (RD) c planned px colch 0.6 QD vs pred 5 (P colch insurance coverage)x 6M (2) Tenosynovitis of right hand Status: Acute Problem Text: D2 Ceftriaxone. favor gouty-NO previous known gouty flares, no precedent trauma, onset precipitous ~1W [employer] Will DC vancomycin (3) HTN (hypertension) Status: Chronic (4) CKD (chronic kidney disease), stage III Status: Chronic Problem Text: at baseline cr ~1.1 (5) CAD (coronary artery disease) Status: Chronic (6) Chronic atrial fibrillation Status: Chronic Problem Text: rate controlled. continue home dosing of Eliquis (7) Congestive heart failure with left ventricular diastolic dysfunction Status: Chronic Response to Treatment: Stable Problem Text: Euvolemic on HD fur 40, spike 25 11/21 BNP 2971-favor baseline 1. The study is of acceptable technical quality. 2. Normal LV size with global hypokinesis and estimated LVEF approximately 40-45%. 3. Degenerative abnormalities of the mitral valve with likely flail small segment of posterior mitral leaflet and mobile echodensity on atrial surface of the posterior mitral leaflet suggestive of vegetation with resulting severe mitral insufficiency. 4. Trivial mitral stenosis. 5. High central venous pressure and at least moderate pulmonary hypertension. COMMENTS: Subacute bacterial peritonitis (SBE) prophylaxis is recommended. Results of the study were communicated yesterday evening with Dr. Hassan. The study certainly raises suspicion for bacterial endocarditis. DD: Vilma Thomas MD 08/23/1737 DT: MARTINA 08/23/17 0744 DS: SLEVO 08/25/171816 <Electronically signed by Vilma Thomas MD> 08/25/171816 DS2: [~ rep ct labl] Plan/VTE VTE Prophylaxis Ordered?: Yes VTE Exclusion Mechanical Proph: Other VTE Exclusion Pharmacological: Other VS, I&O, 24H, Fishbone Vital Signs/I&O Vital Signs Date Time Temp Pulse Resp B/P (MAP) Pulse Ox O2 Delivery O2 Flow Rate FiO2 11/23/19 08:38 83 120/79 11/23/19 06:00 97.5 18 99 Room Air I&O- Last 24 Hours up to 6 AM 11/23/19 06:00 Intake Total 980 ml Output Total 0 ml Balance 980 ml Laboratory Data 24H LABS Laboratory Tests 2 11/22/19 09:58: Immature Granulocyte % (Auto) 0.4, Neutrophils (%) (Auto) 78.3H, Lymphocytes (%) (Auto) 14.5L, Monocytes (%) (Auto) 6.3H, Eosinophils (%) (Auto) 0.2, Basophils (%) (Auto) 0.3, Neutrophils # (Auto) 9.4H, Lymphocytes # (Auto) 1.8, Monocytes # (Auto) 0.8, Eosinophils # (Auto) 0.0, Basophils # (Auto) 0.0, Nucleated Red Blood Cells % (auto) 0.0, Erythrocyte Sedimentation Rate 57H, Prothrombin Time 19.4H, Prothromb Time International Ratio 1.67, Anion Gap 8, Glomerular Filtration Rate 45.9, Lactic Acid Level 2.3*H, Uric Acid 9.4H, Calcium Level 8.9, Total Bilirubin 1.0, Direct Bilirubin 0.4H, Aspartate Amino Transf (AST/SGOT) 19, Alanine Aminotransferase (ALT/SGPT) 22, Alkaline Phosphatase 120H, Total Creatine Kinase 37, Creatine Kinase MB 1.2, Creatine Kinase MB Relative Index 3.24, Troponin I < 0.02, C-Reactive Protein, Quantitative 14.50H, BM-Nlw-A-Type Natriuretic Peptide 2971H, Total Protein 7.0, Albumin 3.1L, Albumin/Globulin Ratio 0.79L, Thyroid Stimulating Hormone (TSH) 1.450, Thyroxine (T4) 10.8, Rheumatoid Factor < 10.0 11/22/19 15:18: Lactic Acid Followup at 4 Hours 1.6 11/23/19 05:12: Nucleated Red Blood Cells % (auto) 0.0, Anion Gap 7L, Glomerular Filtration Rate 52.4, Calcium Level 8.8, C-Reactive Protein, Quantitative 12.90H CBC/BMP Laboratory Tests 11/22/19 09:58 11/23/19 05:12 Microbiology Microbiology 11/22/19 Blood Culture, Received Pending 11/22/19 Blood Culture, Received Pending Tressa Rubio Nov 23, 2019 09:40 Marco A Falk M.D. Nov 23, 2019 17:25
[2019-11-23] MEDS: allopurinoL 100 MG TAB PO SCH (10:44)
[2019-11-23 14:00] VITALS: BP 132/65
[2019-11-23] MEDS: cefTRIAXone SOD 2 GM in D5W MINI-BAG PLUS 50 ML IV SCH (14:35)
--- NOTE | 2019-11-23 14:51 | HPE ---
DATE OF ADMISSION: 11/22/2019 Admit time is 3 p.m. CHIEF COMPLAINT: Right wrist pain and swelling. HISTORY OF PRESENT ILLNESS: Mrs. Krishna is an 79-year-old woman who has a past medical history relevant for severe mitral regurgitation. Apparently, she is not an operative candidate from reviewing her past notes. Chronic diastolic congestive heart failure, chronic kidney disease (CKD) stage III, chronic atrial fibrillation for which she is on Eliquis. The patient presents today to the emergency room with a chief complaint of right wrist pain and swelling that has been ongoing for approximately 1 week and has worsened in the interim and not relieved with oral narcotic medications that she has been taking at home. The patient gives no recollection of any specific trauma. She states that about a week ago, she was doing her house chores and cooking and maybe could have been using her dominant hand a little bit more so; but aside from this, she can give no specific potential exacerbating condition. She has not had any systemic symptoms of fevers or chills. She has had localized pain in that wrist, especially with simple ranges of motion. In addition, she has had some redness and increased swelling. She gives no history of any inflammatory arthritis. She does have history of osteoarthritis. In the emergency room (ER) today, she had an extensive workup consisting of plain x-rays of her right hand and limb with no evidence of any fractures. A right venous duplex ultrasound of that right upper extremity did not demonstrate any deep venous thromboses. She was treated with intravenous (IV) vancomycin and after her diagnostic laboratories indicated that she had a mild leukocytosis of 12,000 with a left shift and the erythrocyte sedimentation rate (ESR) of 57 with a C-reactive protein (CRP) of 14.5. In the ER department, she received the vancomycin and was admitted to the hospitalist service for further treatment and evaluation. Her allergies are no known drug allergies. Her current home medications are the following: - apixaban 5 mg twice a day - baby aspirin daily - atorvastatin 40 mg at bedtime - cholecalciferol 2000 units daily - furosemide 40 mg daily - [place] 5/325 one tablet twice a day - metoprolol tartrate 25 mg three times a day - multivitamin one capsule daily - sennosides 8.6 mg by mouth nightly - Aldactone 25 mg by mouth daily Her past medical history is notable for chronic atrial fibrillation, hyperlipidemia, hypertension, chronic kidney disease stage III, diverticulosis with episode of diverticulitis in the past, chronic diastolic congestive heart failure, severe mitral regurgitation. She has a history of osteoarthritis. Her surgical history is notable for left shoulder surgery, as well as hysterectomy. SOCIAL HISTORY: The patient is . She resides at home with her . She ambulates with a walker. Does not use tobacco, alcohol, or illicit drugs. Her surrogate decision maker would be her son and daughter. The patient lists herself as a FULL CODE. FAMILY HISTORY: The patient's mother during childbirth when the patient was age 1. The patient does not know much medical history about her father. REVIEW OF SYSTEMS: Twelve-systems was reviewed. The patient otherwise negative. On examination today, the patient's temperature is 98.5, pulse is 98 and irregularly irregular with telemetry showing atrial fibrillation, respiratory rate is 22, blood pressure is 131/97, oxygen (O2) saturations 100% on room air. General: The patient is an elderly female. She appears her stated age. She is in moderate distress associated with the pain in her right wrist. Her head is otherwise atraumatic, normocephalic. She has no visible facial drooping. Her speech is fluent. Her pupils are symmetric and reactive to light. Extraocular movements are full in all directions. Oropharynx is clear. Tongue is midline. No visible thrush. Tympanic membranes are visualized bilaterally. She has some mild cerumen in her ear canal. Neck is supple. No visible jugular venous distention. No palpale lymphadenopathy. Lung sounds are appreciated without rales or rhonchi. Heart is S1, S2, irregularly irregular. She has a grade 3/6 systolic murmur consistent with MR. Abdomen is soft, protuberant, nontender, nondistended, with active bowel sounds. No palpable organomegaly. Extremities are without any cyanosis, clubbing, or edema. Musculoskeletal examination: Right wrist and hand is inflamed with some mild erythema. There is significant pain with range of motion. Pulses are fully intact. Capillary refill is less than 5 seconds in all digits. No visible ulcers are noted. RELEVANT LABORATORIES: Are the following: Sodium is 138, potassium 4.1, chloride 104, bicarbonate 26, anion gap is 8, BUN is 25, creatinine is 1.2, glucose 116, calcium is 8.9, total bilirubin is 1, AST is 19, ALT is 22, CPK is 37, troponin is less than 0.02, CRP is 14, NT-pro-BNP is 2971, albumin is 3.1, TSH is 1.4, free T4 is 10.8. White count is 12.1, hemoglobin 13.8, hematocrit 41.5, platelet counts are 230,000, ESR is 57. PT is 19.4, INR is 1.67. Lactic acid is 2.3. IMAGING STUDIES: Vascular ultrasound of right upper extremity shows no evidence of venous thrombosis. Chest x-ray is otherwise unremarkable. Please reference report for details. Hand x-ray is also unremarkable for any fracture. Shoulder x-ray is unremarkable for any fracture. Wrist x-ray is unremarkable for any fracture. IMPRESSION: 1. Right wrist pain. At this point in time, the differential would include possible inflammatory versus infectious tenosynovitis versus gout versus pseudogout versus rheumatoid arthritis. I see no evidence of psoriasis, so less so for psoriatic arthritis as a potential etiology. The patient will be admitted to an inpatient status. I anticipate will need two days to sort of control her pain and inflammatory state and the fact that she is essentially debilitated and not using her dominant hand to get around makes living at home presently difficult. She will be maintained on Rocephin and vancomycin with pharmacy to dose. I will check a uric acid, rheumatoid factor, as well as repeat erythrocyte sedimentation rate (ESR) and C-reactive protein (CRP) levels. In the morning, will get a CT of her right hand without contrast. Will consider orthopedic consult if symptoms have not improved in the next 24-48 hours. Blood cultures have been requested in the ER department and are pending. 2. Chronic atrial fibrillation (AFib). She will be maintained on her Eliquis 2.5 mg twice a day, as well as metoprolol 25 mg twice a day. 3. Chronic diastolic congestive heart failure with history of severe mitral regurgitation. The patient will be continued on her Lasix 40 mg by mouth daily, as well as Aldactone 25 mg by mouth daily. She does have some mild lactic acidemia, which I likely attributed to just diuretic therapy. She can be placed on a liberal diet with fluid consumption for now. The patient will be a FULL CODE. She is on Eliquis for deep venous thrombosis (DVT) prophylaxis.
[2019-11-23] MEDS: ASPIRIN 81 MG CHEW TABLET PO SCH (21:17)
[2019-11-23] MEDS: ATORVASTATIN 20 MG TAB PO SCH (21:17)
[2019-11-23] MEDS: SENNA 8.6 MG TAB (SENOKOT) PO SCH (21:17)
[2019-11-23 22:00] VITALS: BP 129/79
--- NOTE | 2019-11-23 23:06 | ECHO ---
DATE OF PROCEDURE: 11/23/2019 REFERRING PHYSICIAN: Dr. Marco A Falk INDICATION: Heart failure, unspecified. HEIGHT: 59 inches WEIGHT: 78.6 kg 2D MEASUREMENTS: Aortic root: 3.5 cm Left atrium: 4.0 cm Ventricular septum: 1.25 cm Posterior wall: 1.23 cm Left ventricle diastole: 4.4 cm Aortic annulus: 2.3 cm Inferior vena cava: 2.0 cm with more than 50% respiratory variation. DOPPLER MEASUREMENTS: Aortic valve velocity: 130 cm/s LVOT velocity: 49.9 cm/s No aortic regurgitation. Severe mitral regurgitation. No mitral stenosis. Mild tricuspid regurgitation. Estimated right ventricle systolic pressure: 39-44 mmHg assuming a pressure of 5-10 mmHg. Pulmonary artery pressure: 31mmHg. DESCRIPTION: Rhythm was atrial fibrillation with controlled ventricular response. Image quality was fair. No pericardial effusion. This was a 2D, M-mode, color flow Doppler and pulse wave Doppler examination and included mitral annular tissue Doppler. CONCLUSIONS: 1. Moderate mitral annular calcification. Difficult to assess for mitral valve prolapse or flail segments on this study. Severe mitral regurgitation. No mitral stenosis. 2. Very mild concentric left ventricle hypertrophy. Normal regional LV wall motion and wall thickening. Normal LV systolic function. Left ventricular ejection fraction (LVEF) 65% by visual estimate. 3. At least mild left atrial dilatation. Probably moderate left atrial dilatation. 4. Mild aortic valve sclerosis of a 3-cusp aortic valve. No aortic regurgitation. 5. Suggestive of mild-moderate elevation of estimated right ventricle systolic pressure. RECOMMENDATIONS: Recommend mitral valve repair if possible (if not possible, then mitral valve replacement). Consider concurrent intraoperative Maze procedure. Consider transfer to a hospital with cardiac surgery services.
[2019-11-24 06:00] VITALS: BP 120/82
[2019-11-24 06:09] LABS: BASO % 0.1 % (0.0-1.0); EOS % 0.1 % (0.0-3.0); HEMATOCRIT 37.4 % (36.0-47.0); HEMOGLOBIN 12.6 g/dl (12.0-15.5); LYMPH % 16.2 % (24.0-44.0); MEAN CORPUSCULAR HGB CONC 33.7 g/dl (32.0-36.5); MEAN CORPUSCULAR VOLUME 97.9 fl (80.0-96.0); MONO # 0.8 10^3/uL (0.0-0.8); MONO % 6.9 % (0.0-5.0); NEUTROPHILS # 9.2 10^3/uL (1.5-8.5); NEUTROPHILS % 76.3 % (36.0-66.0); PLATELET COUNT, AUTOMATED 243 10^3/uL (150-450); RED BLOOD COUNT 3.82 10^6/uL (4.00-5.40); WHITE BLOOD COUNT 12.1 10^3/uL (4.0-10.0)
[2019-11-24 06:51] LABS: ALBUMIN 2.6 GM/DL (3.2-5.2); ALT/SGPT 34 U/L (12-78); BILIRUBIN,TOTAL 0.4 MG/DL (0.2-1.0); BLOOD UREA NITROGEN 33 MG/DL (7-18); C REACTIVE PROTEIN QUANTITATIV 6.76 MG/DL (0.00-0.30); CALCIUM LEVEL 8.2 MG/DL (8.8-10.2); CARBON DIOXIDE LEVEL 27 MEQ/L (21-32); CHLORIDE LEVEL 108 MEQ/L (98-107); CREATININE FOR GFR 0.94 MG/DL (0.55-1.30); GLOMERULAR FILTRATION RATE > 60.0 (>32); GLUCOSE, FASTING 100 MG/DL (70-100); POTASSIUM SERUM 4.1 MEQ/L (3.5-5.1); SODIUM LEVEL 140 MEQ/L (136-145); TOTAL PROTEIN 6.3 GM/DL (6.4-8.2)
--- NOTE | 2019-11-24 08:49 | IPNPDOC ---
Subjective Date Seen The patient was seen on 11/24/19. Subjective Chief Complaint/HPI arm pain/gout Events since last encounter Right hand/arm pain is improving. Patient notes weakness and after PT eval today, they are recommending rehab. Patient is agreeable to rehab. Constitutional: Denies: Chills, Fever, Night Sweats Pulmonary: Denies: Dyspnea, Cough Cardiovascular: Denies: Chest Pain, Palpitations, Orthopnea, Paroxysmal Noc. Dyspnea, Lt Headedness Gastrointestinal: Denies: Nausea, Vomiting, Abdominal Pain, Diarrhea, Constipation Genitourinary: Denies: Dysuria, Frequency, Incontinence, Retention Objective Physical Examination General Exam: Positive: Alert, No Acute Distress Chest Exam: Positive: Clear to auscultation, Normal air movement Heart Exam: Positive: Rate Normal, Regular Rhythm, Normal S1, Normal S2; Negative: Murmurs, Rubs Extremity Exam: Positive: Normal pulses, Swelling ( mild tenderness to right hand); Negative: Clubbing, Cyanosis, Edema Psych Exam: Positive: Mental status NL, Mood NL, Oriented x 3 Assessment /Plan Problems (1) Hyperuricemia Status: Acute Problem Text: probably exacerbated by chronic diuretic/ EthOH use 11/24/2019: tolerating allopurinol,. Cr. Stable. Will wean Colchicine to daily. 11/21 UA 9.4 (no previous in [place])-+ allo 100 (RD) c planned px colch 0.6 QD vs pred 5 (P colch insurance coverage)x 6M (2) Tenosynovitis of right hand Status: Acute Problem Text: D3 Ceftriaxone. 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 patient agreeable. (4) HTN (hypertension) Status: Chronic (5) CKD (chronic kidney disease), stage III Status: Chronic Problem Text: at baseline cr ~1.1 (6) CAD (coronary artery disease) Status: Chronic (7) Chronic atrial fibrillation Status: Chronic Problem Text: rate controlled. continue home dosing of Eliquis (8) Congestive heart failure with left ventricular diastolic dysfunction Status: Chronic Response to Treatment: Stable Problem Text: Euvolemic on HD fur 40, spike 25 11/21 BNP 2971-favor baseline 1. The study is of acceptable technical quality. 2. Normal LV size with global hypokinesis and estimated LVEF approximately 40-45%. 3. Degenerative abnormalities of the mitral valve with likely flail small segment of posterior mitral leaflet and mobile echodensity on atrial surface of the posterior mitral leaflet suggestive of vegetation with resulting severe mitral insufficiency. 4. Trivial mitral stenosis. 5. High central venous pressure and at least moderate pulmonary hypertension. COMMENTS: Subacute bacterial peritonitis (SBE) prophylaxis is recommended. Results of the study were communicated yesterday evening with Dr. Hassan. The study certainly raises suspicion for bacterial endocarditis. DD: Vilma Thomas MD 08/23/17 0737 DT: MARTINA 08/23/1744 DS: TONY 08/25/171816 <Electronically signed by Vilma Thomas MD> 08/25/171816 DS2: [~ rep ct labl] Plan/VTE VTE Prophylaxis Ordered?: Yes VTE Exclusion Mechanical Proph: Other VTE Exclusion Pharmacological: Other VS, I&O, 24H, Fishbone Vital Signs/I&O Vital Signs Date Time Temp Pulse Resp B/P (MAP) Pulse Ox O2 Delivery O2 Flow Rate FiO2 11/24/19 06:00 97.4 61 20 120/82 (95) 99 Room Air I&O- Last 24 Hours up to 6 AM 11/24/19 05:59 Intake Total 2510 ml Output Total 800 ml Balance 1710 ml Laboratory Data 24H LABS Laboratory Tests 2 11/24/19 05:34: Immature Granulocyte % (Auto) 0.4, Neutrophils (%) (Auto) 76.3H, Lymphocytes (%) (Auto) 16.2L, Monocytes (%) (Auto) 6.9H, Eosinophils (%) (Auto) 0.1, Basophils (%) (Auto) 0.1, Neutrophils # (Auto) 9.2H, Lymphocytes # (Auto) 2.0, Monocytes # (Auto) 0.8, Eosinophils # (Auto) 0.0, Basophils # (Auto) 0.0, Nucleated Red Blood Cells % (auto) 0.0, Anion Gap 5L, Glomerular Filtration Rate > 60.0, Calcium Level 8.2L, Total Bilirubin 0.4#, Aspartate Amino Transf (AST/SGOT) 29, Alanine Aminotransferase (ALT/SGPT) 34, Alkaline Phosphatase 114, C-Reactive Protein, Quantitative 6.76H, Total Protein 6.3L, Albumin 2.6L, Albumin/Globulin Ratio 0.70L CBC/BMP Laboratory Tests 11/24/19 05:34 Microbiology Microbiology 11/22/19 Blood Culture - Preliminary, Resulted No growth after 24 hours . All specim... 11/22/19 Blood Culture - Preliminary, Resulted No growth after 24 hours . All specim... Tressa Rubio [facility] Nov 24, 2019 08:49
[2019-11-24] MEDS: predniSONE 20 MG TAB PO SCH (09:42)
[2019-11-24] MEDS: MULTIVITAMINS/MINERALS THERAP 1 TAB PO SCH (09:42)
[2019-11-24] MEDS: FUROSEMIDE 40 MG TAB PO SCH (09:44)
[2019-11-24] MEDS: APIXABAN 5 MG TAB (ELIQUIS) PO SCH ×2 (09:44→21:05)
[2019-11-24] MEDS: VITAMIN D 1,000 INTERNATIONAL UNITS TABLET PO SCH (09:44)
[2019-11-24] MEDS: COLCHICINE 0.6 MG TAB PO SCH ×3 (09:44→21:04)
[2019-11-24] MEDS: allopurinoL 100 MG TAB PO SCH (09:44)
[2019-11-24] MEDS: SPIRONOLACTONE 25 MG TAB PO SCH (09:44)
[2019-11-24] MEDS: METOPROLOL TART 25 MG TABLET PO SCH ×3 (09:45→21:05)
[2019-11-24 14:00] VITALS: BP 116/76
[2019-11-24] MEDS: cefTRIAXone SOD 2 GM in D5W MINI-BAG PLUS 50 ML IV SCH (14:03)
[2019-11-24] MEDS: ASPIRIN 81 MG CHEW TABLET PO SCH (21:04)
[2019-11-24] MEDS: SENNA 8.6 MG TAB (SENOKOT) PO SCH (21:04)
[2019-11-24] MEDS: ATORVASTATIN 20 MG TAB PO SCH (21:04)
[2019-11-24 22:00] VITALS: BP 114/81
[2019-11-25 06:00] VITALS: BP 119/83
[2019-11-25] MEDS: MULTIVITAMINS/MINERALS THERAP 1 TAB PO SCH (08:47)
[2019-11-25] MEDS: FUROSEMIDE 40 MG TAB PO SCH (08:47)
[2019-11-25] MEDS: predniSONE 20 MG TAB PO SCH (08:47)
[2019-11-25] MEDS: allopurinoL 100 MG TAB PO SCH (08:47)
[2019-11-25] MEDS: SPIRONOLACTONE 25 MG TAB PO SCH (08:47)
[2019-11-25] MEDS: COLCHICINE 0.6 MG TAB PO SCH ×3 (08:47→21:04)
[2019-11-25] MEDS: VITAMIN D 1,000 INTERNATIONAL UNITS TABLET PO SCH (08:47)
[2019-11-25] MEDS: APIXABAN 5 MG TAB (ELIQUIS) PO SCH ×2 (08:48→21:06)
[2019-11-25] MEDS: METOPROLOL TART 25 MG TABLET PO SCH ×3 (08:48→21:05)
[2019-11-25 09:31] LABS: BASO % 0.2 % (0.0-1.0); EOS % 0.2 % (0.0-3.0); HEMATOCRIT 40.6 % (36.0-47.0); HEMOGLOBIN 13.3 g/dl (12.0-15.5); LYMPH % 25.9 % (24.0-44.0); MEAN CORPUSCULAR HEMOGLOBIN 32.4 pg (27.0-33.0); MEAN CORPUSCULAR HGB CONC 32.8 g/dl (32.0-36.5); MONO # 0.7 10^3/uL (0.0-0.8); MONO % 6.4 % (0.0-5.0); NEUTROPHILS # 7.6 10^3/uL (1.5-8.5); NEUTROPHILS % 66.9 % (36.0-66.0); PLATELET COUNT, AUTOMATED 282 10^3/uL (150-450); WHITE BLOOD COUNT 11.4 10^3/uL (4.0-10.0)
[2019-11-25 09:57] LABS: ALBUMIN 2.8 GM/DL (3.2-5.2); BILIRUBIN,TOTAL 0.3 MG/DL (0.2-1.0); C REACTIVE PROTEIN QUANTITATIV 2.74 MG/DL (0.00-0.30); CALCIUM LEVEL 8.2 MG/DL (8.8-10.2); CREATININE FOR GFR 0.98 MG/DL (0.55-1.30); POTASSIUM SERUM 4.2 MEQ/L (3.5-5.1); TOTAL PROTEIN 6.5 GM/DL (6.4-8.2)
--- NOTE | 2019-11-25 10:01 | IPNPDOC ---
Subjective Date Seen The patient was seen on 11/25/19. Subjective Chief Complaint/HPI hand cellulitis Events since last encounter States her hand pain is near resolved. She feels well and is now declining rehab placement. PT adams pending for today Objective Physical Examination General Exam: Positive: Alert, No Acute Distress Chest Exam: Positive: Clear to auscultation, Normal air movement Heart Exam: Positive: Rate Normal, Regular Rhythm, Normal S1, Normal S2; Negative: Murmurs, Rubs Extremity Exam: Positive: Normal pulses, Swelling ( mild tenderness to right hand); Negative: Clubbing, Cyanosis, Edema Psych Exam: Positive: Mental status NL, Mood NL, Oriented x 3 Assessment /Plan Problems (1) Hyperuricemia Status: Acute Problem Text: probably exacerbated by chronic diuretic/ EthOH use 11/24/2019: tolerating allopurinol,. Cr. Stable. Will wean Colchicine to daily. 11/21 UA 9.4 (no previous in [place])-+ allo 100 (RD) c planned px colch 0.6 QD vs pred 5 (P colch insurance coverage)x 6M (2) Tenosynovitis of right hand Status: Acute Problem Text: D3 Ceftriaxone. DC Ceftriaxone. 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 Anticipate rehab facility. patient agreeable. (4) HTN (hypertension) Status: Chronic (5) CKD (chronic kidney disease), stage III Status: Chronic Problem Text: at baseline cr ~1.1 (6) CAD (coronary artery disease) Status: Chronic (7) Chronic atrial fibrillation Status: Chronic Problem Text: rate controlled. continue home dosing of Eliquis (8) Congestive heart failure with left ventricular diastolic dysfunction Status: Chronic Response to Treatment: Stable Problem Text: Euvolemic on HD fur 40, spike 25 11/21 BNP 2971-favor baseline 1. The study is of acceptable technical quality. 2. Normal LV size with global hypokinesis and estimated LVEF approximately 40-45%. 3. Degenerative abnormalities of the mitral valve with likely flail small segment of posterior mitral leaflet and mobile echodensity on atrial surface of the posterior mitral leaflet suggestive of vegetation with resulting severe mitral insufficiency. 4. Trivial mitral stenosis. 5. High central venous pressure and at least moderate pulmonary hypertension. COMMENTS: Subacute bacterial peritonitis (SBE) prophylaxis is recommended. Results of the study were communicated yesterday evening with Dr. Hassan. The study certainly raises suspicion for bacterial endocarditis. DD: Vilma Thomas MD 08/23/1737 DT: MARTINA 08/23/1744 DS: SLEVO 08/25/171816 <Electronically signed by Vilma Thomas MD> 08/25/171816 DS2: [~ rep ct labl] Plan/VTE VTE Prophylaxis Ordered?: Yes VTE Exclusion Mechanical Proph: Other VTE Exclusion Pharmacological: Other VS, I&O, 24H, Fishbone Vital Signs/I&O Vital Signs Date Time Temp Pulse Resp B/P (MAP) Pulse Ox O2 Delivery O2 Flow Rate FiO2 11/25/19 06:00 97.0 52 18 119/83 (95) 92 11/24/19 14:00 Room Air I&O- Last 24 Hours up to 6 AM 11/25/19 05:59 Intake Total 560 ml Output Total 301 ml Balance 259 ml Laboratory Data 24H LABS Laboratory Tests 2 11/25/19 09:17: Immature Granulocyte % (Auto) 0.4, Neutrophils (%) (Auto) 66.9H, Lymphocytes (%) (Auto) 25.9, Monocytes (%) (Auto) 6.4H, Eosinophils (%) (Auto) 0.2, Basophils (%) (Auto) 0.2, Neutrophils # (Auto) 7.6, Lymphocytes # (Auto) 3.0, Monocytes # (Auto) 0.7, Eosinophils # (Auto) 0.0, Basophils # (Auto) 0.0, Nucleated Red Blood Cells % (auto) 0.0, Anion Gap 8, Glomerular Filtration Rate 58.0, Calcium Level 8.2L, Total Bilirubin 0.3, Aspartate Amino Transf (AST/SGOT) 32, Alanine Aminotransferase (ALT/SGPT) 45, Alkaline Phosphatase 118H, C-Reactive Protein, Quantitative 2.74H, Total Protein 6.5, Albumin 2.8L, Albumin/Globulin Ratio 0.7 6L CBC/BMP Laboratory Tests 11/25/19 09:17 Microbiology Microbiology 11/22/19 Blood Culture - Preliminary, Resulted No Growth after 48 hours. All Specime... 11/22/19 Blood Culture - Preliminary, Resulted No Growth after 48 hours. All Specime... Tressa Rubio [facility] Nov 25, 2019 10:01
[2019-11-25 14:00] VITALS: BP 122/71
[2019-11-25] MEDS: ATORVASTATIN 20 MG TAB PO SCH (21:04)
[2019-11-25] MEDS: SENNA 8.6 MG TAB (SENOKOT) PO SCH (21:05)
[2019-11-25] MEDS: ASPIRIN 81 MG CHEW TABLET PO SCH (21:06)
[2019-11-25 22:00] VITALS: BP 116/76
[2019-11-26 06:00] VITALS: BP 120/84
[2019-11-26] MEDS: predniSONE 20 MG TAB PO SCH (09:17)
[2019-11-26] MEDS: MULTIVITAMINS/MINERALS THERAP 1 TAB PO SCH (09:17)
[2019-11-26] MEDS: COLCHICINE 0.6 MG TAB PO SCH (09:17)
[2019-11-26] MEDS: SPIRONOLACTONE 25 MG TAB PO SCH (09:17)
[2019-11-26] MEDS: APIXABAN 5 MG TAB (ELIQUIS) PO SCH (09:17)
[2019-11-26] MEDS: VITAMIN D 1,000 INTERNATIONAL UNITS TABLET PO SCH (09:17)
[2019-11-26 09:18] VITALS: BP 105/65
[2019-11-26] MEDS: FUROSEMIDE 40 MG TAB PO SCH (09:18)
[2019-11-26] MEDS: allopurinoL 100 MG TAB PO SCH (09:18)
[2019-11-26] MEDS: METOPROLOL TART 25 MG TABLET PO SCH (09:18)
[2019-11-26] MEDS ORDERED: COLC1TAB13 PO (10:03)
[2019-11-26] MEDS ORDERED: ALLO10TA PO (10:03)
--- NOTE | 2019-11-30 07:36 | DSES ---
DATE OF ADMISSION: 11/22/2019 DATE OF DISCHARGE: 11/26/2019 ATTENDING PHYSICIAN: Dr. Freddie Hassan PRIMARY CARE PROVIDER: Dr. Marco A Falk HISTORY OF PRESENT ILLNESS: This is a very pleasant 79-year-old female who presented to [facility] for complaints of right wrist pain and swelling that had been present for approximately one week. The patient was subsequently admitted and placed on IV antibiotics for cellulitis. HOSPITAL COURSE: The patient received IV vancomycin as well as ceftriaxone for her cellulitis. It was noted that the patient had a significantly elevated uric acid level so she was placed on colchicine 0.6 mg by mouth three times a day along with prednisone 40 mg by mouth daily and her pain significantly improved. At this time, the vancomycin was discontinued and we continued ceftriaxone IV for three more days. The patient's C-reactive protein (CRP) continued to trend down. After treatment for the elevated uric acid started, the patient's pain significantly improved. It was initially thought that the patient would need subacute rehabilitation secondary to her weakness and difficulty utilizing her right upper extremity. However, once her pain and swelling improved, the patient has had improved mobility and has been deemed safe for discharge to home by physical and occupational therapy. We will provide her with a rolling walker for assistance with ambulation and safety within the home and we will also proceed with home health care and physical therapy in the home. IMAGING: The patient had multiple imaging including a wrist x-ray, vascular ultrasound, shoulder x-ray, hand x-ray, chest x-ray, and extremity CT. The patient did not have signs of osteomyelitis, fracture, or dislocation. Chest x-ray did prove positive for moderate cardiomegaly. However, the patient did not have any signs of acute infiltrate or pulmonary edema. ASSESSMENT: 1. Right wrist pain and swelling secondary to elevated uric acid. 2. Chronic diastolic congestive heart failure with severe mitral valve regurgitation. 3. Chronic atrial fibrillation. PLAN: The patient will be discharged to home. Diet is a two-gram sodium diet. Activity is ambulation with a rolling walker. She will followup with primary care provider (PCP) within the next 5-7 days. MEDICATIONS: As follows: - allopurinol 100 mg by mouth daily - colchicine 0.6 mg by mouth daily - apixaban 5 mg by mouth twice a day - aspirin 81 mg by mouth at bedtime - atorvastatin 40 mg by mouth at bedtime - vitamin D3 1000 international units two by mouth daily - furosemide 40 mg by mouth daily - hydrocodone with acetaminophen one tablet by mouth twice a day as needed for pain - metoprolol 25 mg by mouth three times a day - multivitamin one tablet by mouth daily - senna 8.6 mg by mouth at bedtime - spironolactone 25 mg by mouth daily The patient is discharged in stable and satisfactory condition with no further questions at the time of discharge.
== END 2019-11-26 13:57 | disposition home health service (06) | DRG 558 ==
LOC: M ED 09:15 → EDBD 09:15 → EEVIPCON 14:47 → M ED INP 14:47 → ENRESERV 15:09 → M MSPAV 16:19
PROVIDERS: ADMIT Internal Medicine; ATTEND Family Medicine
DX: M65.831 Other synovitis and tenosynovitis, right forearm (principal); I50.32 Chronic diastolic (congestive) heart failure; I48.20 Chronic atrial fibrillation, unspecified; I34.0 Nonrheumatic mitral (valve) insufficiency; N18.3 Chronic kidney disease, stage 3 (moderate); K57.90 Diverticulosis of intestine, part unspecified, without perforation or abscess without bleeding; Z79.01 Long term (current) use of anticoagulants; Z79.82 Long term (current) use of aspirin; Z79.891 Long term (current) use of opiate analgesic; Z79.899 Other long term (current) drug therapy; R53.81 Other malaise

== ENCOUNTER → 2019-12-15 | Outpatient (REF) | payer MEDICARE ==
[~2019-12-15] MED LIST changes: +ALLO10TA PO; +COLC1TAB13 PO; +GNP8.6TA PO; +METO25TA4 PO; +SPIR-10 PO; +VITAD1000T PO
[2019-12-15 14:17] LABS: ALBUMIN 3.7 GM/DL (3.2-5.2); BILIRUBIN,TOTAL 0.9 MG/DL (0.2-1.0); CALCIUM LEVEL 11.1 MG/DL (8.8-10.2); CREATININE FOR GFR 1.41 MG/DL (0.55-1.30); GLOMERULAR FILTRATION RATE 38.1 (>32); MAGNESIUM LEVEL 2.4 MG/DL (1.8-2.4); POTASSIUM SERUM 4.8 MEQ/L (3.5-5.1); TOTAL PROTEIN 7.3 GM/DL (6.4-8.2); URIC ACID 8.4 MG/DL (2.6-6.0)
== END ==
LOC: M SFHCPLAZ 12:08
PROVIDERS: ATTEND Family Medicine
DX: M10.9 Gout, unspecified (principal); I11.0 Hypertensive heart disease with heart failure; R73.01 Impaired fasting glucose; I50.22 Chronic systolic (congestive) heart failure
CPT/HCPCS: 36415; 80053; 83036; 83735; 83880; 84550; G0463

== ENCOUNTER → 2020-06-04 | Outpatient (CLI) | payer MEDICARE ==
[~2020-06-04] MED LIST changes: +AMLO1TAB24; -AMLO5TAB6; +D31000TA2 PO; -VITAD1000T PO
== END ==
LOC: M LABSMTC 08:13
PROVIDERS: ATTEND Anesthesiology
DX: Z01.812 Encounter for preprocedural laboratory examination (principal); Z20.828 Contact with and (suspected) exposure to other viral communicable diseases
CPT/HCPCS: C9803; U0003

== ENCOUNTER 2020-06-09 06:49 | Day surgery (SDC) | payer MEDICARE ==
[~2020-06-09] VITALS: Ht 152.4 cm; Wt 78.9 kg
[~2020-06-09 06:49] MED LIST changes: +DUOVISC (0.50ML VISCOAT/0.55ML PROVISC) OPHTH KIT As Ordered ONE; +POVIDONE-IODINE 5% OPHTH PREP SOL 30ML As Ordered ONE
[2020-06-09] MEDS ORDERED: TROPICAMIDE 1% OPHTH SOLN 2ML OS ONE (07:00)
[2020-06-09] MEDS ORDERED: PHENYLEPHRINE 2.5% OPHTH SOL 2ML OS ONE (07:00)
[2020-06-09] MEDS ORDERED: PROPARACAINE 0.5% OPHTH SOL 15ML OS ONE (07:00)
[2020-06-09] MEDS ORDERED: OFLOXACIN 0.3 % (OCUFLOX) OPTH SOL 5ML OS ONE (07:00)
[2020-06-09] MEDS ORDERED: TROPICAMIDE 1% OPHTH SOLN 2ML As Ordered ONE (07:02)
[2020-06-09] MEDS ORDERED: OFLOXACIN 0.3 % (OCUFLOX) OPTH SOL 5ML As Ordered ONE (07:02)
[2020-06-09] MEDS ORDERED: PHENYLEPHRINE 2.5% OPHTH SOL 2ML As Ordered ONE (07:02)
[2020-06-09] MEDS ORDERED: CEFUROXIME 1MG/0.1ML INTRACAMERAL INJ As Ordered ONE (07:22)
[2020-06-09] MEDS ORDERED: MIDAZOLAM INJ 2MG/2ML VIAL (J2250 PER 1MG) As Ordered ONE (08:06)
[2020-06-09] MEDS ORDERED: fentaNYL 250 MCG/5 ML INJECTION (J3010) As Ordered ONE (08:06)
[2020-06-09] MEDS ORDERED: BSS IRR 500ML/OMIDRIA 4ML IRR BAG (OR ONLY) (J1097 PER ML) As Ordered ONE (08:08)
[2020-06-09] MEDS ORDERED: TRYPAN BLUE 0.06 % 2.25 ML OPHTH SYR (VISIONBLUE) As Ordered ONE (08:09)
[2020-06-09] MEDS ORDERED: DUOVISC (0.50ML VISCOAT/0.55ML PROVISC) OPHTH KIT As Ordered ONE (08:22)
[2020-06-09] MEDS ORDERED: ACETYLCHOLINE OPHTH SOLN 1% 2ML (MIOCHOL-E) As Ordered ONE (08:34)
[2020-06-09 09:20] VITALS: BP 125/75
== END 2020-06-09 09:45 | disposition home or self-care (01) ==
LOC: M SDC 06:49
PROVIDERS: ATTEND Ophthalmology
DX: H25.12 Age-related nuclear cataract, left eye (principal); I10 Essential (primary) hypertension; Z79.899 Other long term (current) drug therapy; I25.10 Atherosclerotic heart disease of native coronary artery without angina pectoris; Z79.01 Long term (current) use of anticoagulants
CPT/HCPCS: 66984; J1097; J2250; J3010

== ENCOUNTER → 2020-06-10 | Outpatient (CLI) | payer MEDICARE ==
[~2020-06-10] MED LIST changes: -DUOVISC (0.50ML VISCOAT/0.55ML PROVISC) OPHTH KIT As Ordered ONE; -POVIDONE-IODINE 5% OPHTH PREP SOL 30ML As Ordered ONE
--- NOTE | 2020-06-11 16:40 | ECGEPIP ---
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
== END ==
LOC: M EKG 10:40
PROVIDERS: ATTEND Ophthalmology Retina Specialist
DX: Z01.818 Encounter for other preprocedural examination (principal)

== ENCOUNTER → 2020-11-02 | Outpatient (CLI) | payer MEDICARE ==
[~2020-11-02] MED LIST changes: +COLC0.6T47 PO; -COLC1TAB13 PO
[2020-11-02 11:50] LABS: BASO % 0.5 % (0.0-1.0); EOS # 0.1 10^3/uL (0.0-0.5); EOS % 1.5 % (0.0-3.0); HEMATOCRIT 44.8 % (36.0-47.0); HEMOGLOBIN 14.8 g/dl (12.0-15.5); LYMPH # 1.9 10^3/uL (1.5-5.0); MEAN CORPUSCULAR HEMOGLOBIN 33.3 pg (27.0-33.0); MEAN CORPUSCULAR VOLUME 100.7 fl (80.0-96.0); MONO # 0.6 10^3/uL (0.0-0.8); MONO % 6.7 % (0.0-5.0); NEUTROPHILS % 68.8 % (36.0-66.0); PLATELET COUNT, AUTOMATED 202 10^3/uL (150-450); RED BLOOD COUNT 4.45 10^6/uL (4.00-5.40); WHITE BLOOD COUNT 8.8 10^3/uL (4.0-10.0)
[2020-11-02 12:40] LABS: ALBUMIN 3.7 GM/DL (3.2-5.2); BILIRUBIN,TOTAL 0.8 MG/DL (0.2-1.0); CALCIUM LEVEL 9.6 MG/DL (8.8-10.2); CREATININE FOR GFR 1.23 MG/DL (0.55-1.30); GLOMERULAR FILTRATION RATE 44.5 (>32); POTASSIUM SERUM 4.8 MEQ/L (3.5-5.1); TOTAL PROTEIN 6.3 GM/DL (6.4-8.2); URIC ACID 5.9 MG/DL (2.6-6.0)
[2020-11-02 12:51] LABS: PTH INTACT 103.8 PG/ML (18.5-88.0); TOTAL 25(OH) VITAMIN D 52.1 NG/ML (30.0-100.0)
[2020-11-02 13:34] LABS: HEMOGLOBIN A1c 5.5 %
== END ==
LOC: M LAB 10:50
PROVIDERS: ATTEND Family Medicine
DX: R73.01 Impaired fasting glucose (principal); E55.9 Vitamin D deficiency, unspecified; N18.30 Chronic kidney disease, stage 3 unspecified; I50.22 Chronic systolic (congestive) heart failure

== ENCOUNTER → 2021-02-25 | Outpatient (CLI) | payer MEDICARE ==
[~2021-02-25] MED LIST changes: -GNP8.6TA PO; +GNP8.6TA7 PO
== END ==
LOC: M LABSMTC 09:17
PROVIDERS: ATTEND Anesthesiology
DX: Z01.812 Encounter for preprocedural laboratory examination (principal); Z20.822 Contact with and (suspected) exposure to COVID-19

== ENCOUNTER 2021-03-02 07:00 | Day surgery (SDC) | payer MEDICARE ==
[~2021-03-02] VITALS: Ht 152.4 cm; Wt 82.6 kg
[~2021-03-02 07:00] MED LIST changes: +BSS IRR 500ML/OMIDRIA 4ML IRR BAG (OR ONLY) As Ordered ONE; +CEFUROXIME 1MG/0.1ML INTRACAMERAL INJ As Ordered ONE; +DUOVISC (0.50ML VISCOAT/0.55ML PROVISC) OPHTH KIT As Ordered ONE; +OFLOXACIN 0.3 % (OCUFLOX) OPTH SOL 5ML OD ONE; +PHENYLEPHRINE 2.5% OPHTH SOL 2ML OD ONE; +POVIDONE-IODINE 5% OPHTH PREP SOL 30ML As Ordered ONE; +PROPARACAINE 0.5% OPHTH SOL 15ML OD ONE; +TROPICAMIDE 1% OPHTH SOLN 2ML OD ONE
[2021-03-02] MEDS ORDERED: MIDAZOLAM INJ 2MG/2ML VIAL (J2250 PER 1MG) As Ordered ONE (07:16)
[2021-03-02] MEDS ORDERED: fentaNYL 100 MCG/2 ML INJECTION (J3010) As Ordered ONE (07:16)
[2021-03-02] MEDS ORDERED: TRYPAN BLUE 0.06 % 2.25 ML OPHTH SYR (VISIONBLUE) As Ordered ONE (09:04)
[2021-03-02] MEDS ORDERED: ACETYLCHOLINE OPHTH SOLN 1% 2ML (MIOCHOL-E) As Ordered ONE (09:09)
[2021-03-02 09:50] VITALS: BP 134/89
--- NOTE | 2021-03-03 09:24 | RO ---
OPERATIVE NOTE DATE OF OPERATION: 03/02/2021 PREOPERATIVE DIAGNOSIS: 1. Visually significant nuclear sclerotic cataract, right eye. POSTOPERATIVE DIAGNOSIS: 1. Visually significant nuclear sclerotic cataract, right eye. PROCEDURE: 1. Cataract extraction with use of phacoemulsification, and placement of intraocular lens, AU00T0, 25.0 D, right eye. SURGEON: Yobany Dwyer DO ANESTHESIA: Local (Omidria with MAC) COMPLICATIONS: None POSTOPERATIVE CONDITION: Stable INDICATIONS FOR SURGERY: 1. Blurred vision affecting patient's activities of daily living. DESCRIPTION OF PROCEDURE: The patient was seen in the preoperative area and properly identified. The correct operative eye was identified and marked. The patient received topical anesthetic, antibiotics, and topical dilating drops. The patient was then transferred to the operating room. The correct side was re-identified and a time-out was performed. The eye was prepped and draped in a sterile fashion. The eyelids were isolated with Tegaderm tape and the lids were held open with an adjustable speculum. A 1.0mm paracentesis incision was made. Omidria was then injected into the anterior chamber. Viscoelastic was then injected into the anterior chamber through the paracentesis. Using a 2.4mm sharp-tipped keratome, the anterior chamber was entered via a temporal clear cornea incision. A continuous curvilinear capsulorrhexis was created with Utrata forceps. Hydrodissection was performed with BSS on a blunt cannula until the nucleus was able to rotate freely. The crystalline lens was phacoemulsified and aspirated. Irrigation/aspiration was used to remove the cortical material Cohesive viscoelastic was placed into the capsular bag to deepen it. The implant was placed into the capsular bag and allowed to unfold. Placement was confirmed by visualizing the anterior capsulorrhexis. Irrigation/aspiration was used to remove the viscoelastic. The clear corneal incision was hydrated with BSS on a blunt cannula. The lens was well positioned. Intracameral antibiotic was injected into the anterior chamber. The incisions were then tested for leaks and found to be negative. The eye was then palpated for appropriate pressure and adjusted accordingly with BSS. The eyelid speculum was then carefully removed. A shield was placed over the eye. The patient tolerated the procedure well and was discharge to the recovery unit in a stable condition.
== END 2021-03-02 10:13 | disposition home or self-care (01) ==
LOC: M SDC 07:00
PROVIDERS: ATTEND Ophthalmology
DX: H25.11 Age-related nuclear cataract, right eye (principal); I48.91 Unspecified atrial fibrillation; I10 Essential (primary) hypertension; I25.10 Atherosclerotic heart disease of native coronary artery without angina pectoris; Z79.82 Long term (current) use of aspirin; Z79.01 Long term (current) use of anticoagulants; Z79.899 Other long term (current) drug therapy; Z87.891 Personal history of nicotine dependence
CPT/HCPCS: 66984; J1097; J2250; J3010; V2632

== ENCOUNTER → 2021-03-16 | Outpatient (REF) | payer MEDICARE ==
[~2021-03-16] MED LIST changes: -BSS IRR 500ML/OMIDRIA 4ML IRR BAG (OR ONLY) As Ordered ONE; -CEFUROXIME 1MG/0.1ML INTRACAMERAL INJ As Ordered ONE; -DUOVISC (0.50ML VISCOAT/0.55ML PROVISC) OPHTH KIT As Ordered ONE; -OFLOXACIN 0.3 % (OCUFLOX) OPTH SOL 5ML OD ONE; -PHENYLEPHRINE 2.5% OPHTH SOL 2ML OD ONE; -POVIDONE-IODINE 5% OPHTH PREP SOL 30ML As Ordered ONE; -PROPARACAINE 0.5% OPHTH SOL 15ML OD ONE; -TROPICAMIDE 1% OPHTH SOLN 2ML OD ONE
[2021-03-16 14:29] LABS: ALBUMIN 3.7 GM/DL (3.2-5.2); ALT/SGPT 24 U/L (12-78); BILIRUBIN,TOTAL 0.8 MG/DL (0.2-1.0); BLOOD UREA NITROGEN 29 MG/DL (7-18); CALCIUM LEVEL 10.5 MG/DL (8.8-10.2); CARBON DIOXIDE LEVEL 29 MEQ/L (21-32); CHLORIDE LEVEL 106 MEQ/L (98-107); CHOLESTEROL LEVEL 173 MG/DL (<200); CHOLESTEROL RISK RATIO 3.203 (<5); CREATININE FOR GFR 1.19 MG/DL (0.55-1.30); FREE T4 1.22 NG/DL (0.76-1.46); GLOMERULAR FILTRATION RATE 46.1 (>32); GLUCOSE, FASTING 101 MG/DL (70-100); HDL CHOLESTEROL 54 MG/DL (>40); LDL CHOLESTEROL 97 MG/DL (<100); NON-HDL-C 119 MG/DL; NT-PRO BNP 2221 PG/ML (<450); POTASSIUM SERUM 5.3 MEQ/L (3.5-5.1); PTH INTACT 64.9 PG/ML (18.5-88.0); SODIUM LEVEL 140 MEQ/L (136-145); TOTAL PROTEIN 6.6 GM/DL (6.4-8.2); TRIGLYCERIDES LEVEL 111 MG/DL (<150); VITAMIN B12 LEVEL 1071 PG/ML (247-911)
[2021-03-16 14:45] LABS: HEMOGLOBIN A1c 5.7 %
== END ==
LOC: M SFHCPLAZ 11:41
PROVIDERS: ATTEND Family Medicine
DX: R73.01 Impaired fasting glucose (principal); E55.9 Vitamin D deficiency, unspecified; E78.2 Mixed hyperlipidemia; D75.89 Other specified diseases of blood and blood-forming organs; I50.22 Chronic systolic (congestive) heart failure
CPT/HCPCS: 36415; 80053; 80061; 82607; 83036; 83880; 83970; 84439; 84443; 86335; G0463

== ENCOUNTER → 2021-07-24 | Outpatient (CLI) | payer MEDICARE ==
[~2021-07-24] MED LIST changes: -GNP8.6TA7 PO; +SENN-111 PO
[2021-07-24 18:38] LABS: BASO % 0.5 % (0.0-1.0); EOS # 0.1 10^3/uL (0.0-0.5); EOS % 1.3 % (0.0-3.0); HEMATOCRIT 45.7 % (36.0-47.0); HEMOGLOBIN 14.7 g/dl (12.0-15.5); LYMPH # 2.1 10^3/uL (1.5-5.0); LYMPH % 27.3 % (24.0-44.0); MEAN CORPUSCULAR HEMOGLOBIN 34.3 pg (27.0-33.0); MEAN CORPUSCULAR HGB CONC 32.2 g/dl (32.0-36.5); MEAN CORPUSCULAR VOLUME 106.5 fl (80.0-96.0); MONO # 0.6 10^3/uL (0.0-0.8); MONO % 7.4 % (2.0-8.0); NEUTROPHILS # 4.9 10^3/uL (1.5-8.5); NEUTROPHILS % 63.1 % (36.0-66.0); PLATELET COUNT, AUTOMATED 198 10^3/uL (150-450); RED BLOOD COUNT 4.29 10^6/uL (4.00-5.40); WHITE BLOOD COUNT 7.8 10^3/uL (4.0-10.0)
[2021-07-24 19:04] LABS: ALBUMIN 3.5 GM/DL (3.2-5.2); CALCIUM LEVEL 9.8 MG/DL (8.8-10.2); CREATININE FOR GFR 1.5 MG/DL (0.55-1.30); GLOMERULAR FILTRATION RATE 35.3 (>32); MAGNESIUM LEVEL 2.5 MG/DL (1.8-2.4); PHOSPHORUS LEVEL 3.9 MG/DL (2.5-4.9); POTASSIUM SERUM 5.3 MEQ/L (3.5-5.1)
[2021-07-24 19:08] LABS: PTH INTACT 100.8 PG/ML (18.5-88.0)
== END ==
LOC: M PLALAB 13:44
PROVIDERS: ATTEND Family Medicine
DX: E55.9 Vitamin D deficiency, unspecified (principal); I50.22 Chronic systolic (congestive) heart failure; M10.9 Gout, unspecified; Z23 Encounter for immunization
CPT/HCPCS: 36415; 80069; 82728; 83735; 83880; 83970; 84550; 85025; 85046; G0008; G0463

== ENCOUNTER → 2021-07-28 | Outpatient (CLI) | payer MEDICARE | LOC: M PLALAB 10:33 | PROVIDERS: ATTEND Family Medicine | DX: E55.9 Vitamin D deficiency, unspecified (principal) ==

== ENCOUNTER → 2021-08-14 | Outpatient (CLI) | payer MEDICARE ==
[2021-08-14 13:35] LABS: ALBUMIN 3.1 GM/DL (3.2-5.2); BILIRUBIN,TOTAL 0.9 MG/DL (0.2-1.0); CALCIUM LEVEL 9.2 MG/DL (8.8-10.2); CREATININE FOR GFR 1.25 MG/DL (0.55-1.30); GLOMERULAR FILTRATION RATE 43.6 (>32); MAGNESIUM LEVEL 2.3 MG/DL (1.8-2.4); POTASSIUM SERUM 4.4 MEQ/L (3.5-5.1); TOTAL PROTEIN 6.6 GM/DL (6.4-8.2)
== END ==
LOC: M PLALAB 11:03
PROVIDERS: ATTEND Family Medicine
DX: I50.22 Chronic systolic (congestive) heart failure (principal)
CPT/HCPCS: 36415; 80053; 83735; 83880; G0463

== ENCOUNTER → 2021-09-06 | Outpatient (CLI) | payer MEDICARE ==
[2021-09-06 17:09] LABS: ALBUMIN 3.8 GM/DL (3.2-5.2); CALCIUM LEVEL 10.8 MG/DL (8.8-10.2); CREATININE FOR GFR 1.17 MG/DL (0.55-1.30); MAGNESIUM LEVEL 2.3 MG/DL (1.8-2.4); POTASSIUM SERUM 3.9 MEQ/L (3.5-5.1)
== END ==
LOC: M PLALAB 11:50
PROVIDERS: ATTEND Physician Assistant
DX: I50.23 Acute on chronic systolic (congestive) heart failure (principal); N18.30 Chronic kidney disease, stage 3 unspecified
CPT/HCPCS: 36415; 80069; 83735; 83880; G0463

== ENCOUNTER → 2021-12-22 | Outpatient (CLI) | payer MEDICARE ==
[~2021-12-22] MED LIST changes: -D31000TA2 PO; -FOSI40TA3 PO; +FOSI40TA59 PO; +POTA-149 PO; -POTA10TA16 PO; +VITA100093 PO
[2021-12-22 15:28] LABS: BASO # 0.1 10^3/uL (0.0-0.2); BASO % 0.6 % (0.0-1.0); EOS # 0.1 10^3/uL (0.0-0.5); EOS % 0.9 % (0.0-3.0); HEMATOCRIT 43.7 % (36.0-47.0); HEMOGLOBIN 14.1 g/dl (12.0-15.5); LYMPH # 1.6 10^3/uL (1.5-5.0); LYMPH % 16.9 % (24.0-44.0); MEAN CORPUSCULAR HEMOGLOBIN 32.5 pg (27.0-33.0); MEAN CORPUSCULAR HGB CONC 32.3 g/dl (32.0-36.5); MEAN CORPUSCULAR VOLUME 100.7 fl (80.0-96.0); MONO # 0.5 10^3/uL (0.0-0.8); MONO % 5.6 % (2.0-8.0); NEUTROPHILS # 7.3 10^3/uL (1.5-8.5); NEUTROPHILS % 75.5 % (36.0-66.0); PLATELET COUNT, AUTOMATED 241 10^3/uL (150-450); RED BLOOD COUNT 4.34 10^6/uL (4.00-5.40); WHITE BLOOD COUNT 9.7 10^3/uL (4.0-10.0)
[2021-12-22 15:49] LABS: HEMOGLOBIN A1c 5.9 %
[2021-12-22 15:54] LABS: ALBUMIN 3.4 GM/DL (3.2-5.2); BILIRUBIN,TOTAL 1.1 MG/DL (0.2-1.0); CALCIUM LEVEL 9.4 MG/DL (8.8-10.2); CREATININE FOR GFR 1.17 MG/DL (0.55-1.30); MAGNESIUM LEVEL 2.2 MG/DL (1.8-2.4); POTASSIUM SERUM 4.3 MEQ/L (3.5-5.1); TOTAL PROTEIN 6.7 GM/DL (6.4-8.2)
[2021-12-22 15:58] LABS: PTH INTACT 132.2 PG/ML (18.5-88.0)
== END ==
LOC: M PLALAB 12:49
PROVIDERS: ATTEND Family Medicine
DX: I50.22 Chronic systolic (congestive) heart failure (principal); E55.9 Vitamin D deficiency, unspecified; R73.01 Impaired fasting glucose; D75.89 Other specified diseases of blood and blood-forming organs; Z79.899 Other long term (current) drug therapy

== ENCOUNTER → 2022-07-03 | Outpatient (CLI) | payer MEDICARE ==
[2022-07-03 16:16] LABS: BASO # 0.1 10^3/uL (0.0-0.2); BASO % 0.7 % (0.0-1.0); EOS # 0.2 10^3/uL (0.0-0.5); EOS % 1.9 % (0.0-3.0); HEMATOCRIT 41.9 % (36.0-47.0); HEMOGLOBIN 13.1 g/dl (12.0-15.5); LYMPH # 2.5 10^3/uL (1.5-5.0); LYMPH % 29.1 % (24.0-44.0); MEAN CORPUSCULAR HGB CONC 31.3 g/dl (32.0-36.5); MEAN CORPUSCULAR VOLUME 105.5 fl (80.0-96.0); MONO # 0.6 10^3/uL (0.0-0.8); MONO % 6.9 % (2.0-8.0); NEUTROPHILS # 5.3 10^3/uL (1.5-8.5); NEUTROPHILS % 61.3 % (36.0-66.0); PLATELET COUNT, AUTOMATED 205 10^3/uL (150-450); RED BLOOD COUNT 3.97 10^6/uL (4.00-5.40); WHITE BLOOD COUNT 8.6 10^3/uL (4.0-10.0)
[2022-07-03 16:58] LABS: ALBUMIN 3.5 GM/DL (3.2-5.2); BILIRUBIN,TOTAL 0.8 MG/DL (0.2-1.0); CALCIUM LEVEL 9.5 MG/DL (8.8-10.2); CHOLESTEROL RISK RATIO 2.457 (<5); CREATININE FOR GFR 1.2 MG/DL (0.55-1.30); FREE T4 1.2 NG/DL (0.76-1.46); GLOMERULAR FILTRATION RATE 45.6 (>32); POTASSIUM SERUM 4.1 MEQ/L (3.5-5.1); THYROID STIMULATING HORMONE 2.48 uIU/ML (0.358-3.740); TOTAL PROTEIN 6.8 GM/DL (6.4-8.2); URIC ACID 8.3 MG/DL (2.6-6.0)
== END ==
LOC: M PLALAB 12:38
PROVIDERS: ATTEND Family Medicine
DX: M10.09 Idiopathic gout, multiple sites (principal); D75.89 Other specified diseases of blood and blood-forming organs; E78.2 Mixed hyperlipidemia; I50.22 Chronic systolic (congestive) heart failure

== ENCOUNTER 2022-08-25 06:39 | Inpatient (IN) | payer MEDICARE ==
[~2022-08-25] VITALS: Ht 157.5 cm; Wt 81.7 kg
[2022-08-25 07:29] LABS: BASO # 0.1 10^3/uL (0.0-0.2); BASO % 0.6 % (0.0-1.0); EOS # 0.1 10^3/uL (0.0-0.5); EOS % 0.6 % (0.0-3.0); HEMATOCRIT 37.5 % (36.0-47.0); HEMOGLOBIN 11.9 g/dl (12.0-15.5); LYMPH # 1.3 10^3/uL (1.5-5.0); LYMPH % 16.3 % (24.0-44.0); MEAN CORPUSCULAR HEMOGLOBIN 32.2 pg (27.0-33.0); MEAN CORPUSCULAR HGB CONC 31.7 g/dl (32.0-36.5); MEAN CORPUSCULAR VOLUME 101.6 fl (80.0-96.0); MONO # 0.3 10^3/uL (0.0-0.8); MONO % 3.8 % (2.0-8.0); NEUTROPHILS # 6.4 10^3/uL (1.5-8.5); NEUTROPHILS % 78.3 % (36.0-66.0); PLATELET COUNT, AUTOMATED 242 10^3/uL (150-450); RED BLOOD COUNT 3.69 10^6/uL (4.00-5.40); WHITE BLOOD COUNT 8.2 10^3/uL (4.0-10.0)
[2022-08-25 07:44] LABS: INR 1.5; PROTHROMBIN TIME 18.4 SECONDS (12.5-14.5)
[2022-08-25 08:27] LABS: VENOUS BASE EXCESS 0.1 (-2.0-2.0); VENOUS HCO3 24.8 MEQ/L (23.0-27.0); VENOUS O2 SATURATION 84.1 % (60.0-80.0); VENOUS PARTIAL PRESSURE CO2 40.8 mmHg (38.0-50.0); VENOUS PARTIAL PRESSURE O2 49.8 mmHg (30.0-50.0); VENOUS PH 7.402 UNITS (7.330-7.430); VENOUS STANDARD HCO3 24.2 MEQ/L; VENOUS TOTAL CO2 26.1 MEQ/L (24.0-28.0)
[2022-08-25 08:40] LABS: CALCIUM LEVEL 8.8 MG/DL (8.3-10.6); CREATININE FOR GFR 1.15 MG/DL (0.55-1.30); GLOMERULAR FILTRATION RATE 47.9 (>32); POTASSIUM SERUM 4.1 MMOL/L (3.5-5.1)
[2022-08-25] MEDS: allopurinoL 100 MG TAB PO SCH (09:00)
[2022-08-25] MEDS ORDERED: FUROSEMIDE 40MG/4ML VIAL (J1940) IV ONE (09:00)
[2022-08-25] MEDS: METOPROLOL TART 25 MG TABLET PO SCH ×3 (09:00→21:23)
[2022-08-25] MEDS: DOCUSATE SODIUM 100MG CAPSULE PO SCH ×2 (09:00→21:21)
[2022-08-25] MEDS: APIXABAN 5 MG TAB (ELIQUIS) PO SCH ×2 (09:00→21:23)
[2022-08-25 09:11] LABS: RSV AMPLIFICATION NEGATIVE (NEGATIVE)
[2022-08-25] MEDS ORDERED: TORS20TA2 PO (09:15)
[2022-08-25] MEDS ORDERED: ALLO10TA PO (09:15)
[2022-08-25] MEDS ORDERED: DOCU100C17 PO (09:18)
[2022-08-25] MEDS ORDERED: med rec comment (09:20)
[2022-08-25] MEDS ORDERED: HOME MED LIST COMPLETE! XX SCH (09:20)
[2022-08-25] MEDS ORDERED: hydrALAZINE 20MG/ML 1ML VIAL IV PRN (11:05)
[2022-08-25 14:31] VITALS: BP 132/48
[2022-08-25 16:00] VITALS: BP 121/82
[2022-08-25 20:00] VITALS: BP 136/88
[2022-08-25] MEDS: ASPIRIN 81MG CHEW TABLET PO SCH (21:22)
[2022-08-25] MEDS: ATORVASTATIN 20 MG TAB PO SCH (21:23)
[2022-08-25 23:59] VITALS: BP 131/89
[2022-08-26 04:00] VITALS: BP 149/96
[2022-08-26 05:46] LABS: HEMATOCRIT 37.2 % (36.0-47.0); HEMOGLOBIN 11.9 g/dl (12.0-15.5); MEAN CORPUSCULAR HEMOGLOBIN 32.1 pg (27.0-33.0); MEAN CORPUSCULAR VOLUME 100.3 fl (80.0-96.0); PLATELET COUNT, AUTOMATED 208 10^3/uL (150-450); RED BLOOD COUNT 3.71 10^6/uL (4.00-5.40); WHITE BLOOD COUNT 9.7 10^3/uL (4.0-10.0)
[2022-08-26 06:17] LABS: CALCIUM LEVEL 9.3 MG/DL (8.3-10.6); CREATININE FOR GFR 1.06 MG/DL (0.55-1.30); GLOMERULAR FILTRATION RATE 52.6 (>32); POTASSIUM SERUM 3.9 MMOL/L (3.5-5.1)
[2022-08-26 07:38] VITALS: BP 134/88
[2022-08-26] MEDS: APIXABAN 5 MG TAB (ELIQUIS) PO SCH ×2 (08:58→21:05)
[2022-08-26] MEDS: METOPROLOL TART 25 MG TABLET PO SCH ×3 (08:59→21:04)
[2022-08-26] MEDS: DOCUSATE SODIUM 100MG CAPSULE PO SCH ×2 (08:59→21:04)
[2022-08-26] MEDS: allopurinoL 100 MG TAB PO SCH (08:59)
[2022-08-26 12:00] VITALS: BP 121/80
[2022-08-26] MEDS ORDERED: VANCOMYCIN HCL 1,000 MG, VIAL MATE ADAPTER 1 EACH in NS 250 ML IV SCH (12:00)
[2022-08-26] MEDS ORDERED: VANCOMYCIN HCL 500 MG in D5W MINI-BAG PLUS 100 ML IV ONE (14:00)
[2022-08-26 16:00] VITALS: BP 137/97
[2022-08-26 20:21] VITALS: BP 128/91
[2022-08-26] MEDS: ASPIRIN 81MG CHEW TABLET PO SCH (21:04)
[2022-08-26] MEDS: ATORVASTATIN 20 MG TAB PO SCH (21:04)
[2022-08-26] MEDS: ACETAMINOPHEN TAB 650MG DOSE (2X325MG) PO PRN (21:05)
[2022-08-27 00:19] VITALS: BP 111/77
[2022-08-27 04:36] VITALS: BP 108/63
[2022-08-27 05:23] LABS: HEMATOCRIT 37.1 % (36.0-47.0); HEMOGLOBIN 11.6 g/dl (12.0-15.5); MEAN CORPUSCULAR HGB CONC 31.3 g/dl (32.0-36.5); MEAN CORPUSCULAR VOLUME 102.2 fl (80.0-96.0); PLATELET COUNT, AUTOMATED 192 10^3/uL (150-450); RED BLOOD COUNT 3.63 10^6/uL (4.00-5.40)
[2022-08-27 05:52] LABS: VANCOMYCIN RANDOM 10.4 UG/ML
[2022-08-27 05:53] LABS: BLOOD UREA NITROGEN 24 MG/DL (9-23); CALCIUM LEVEL 9.4 MG/DL (8.3-10.6); CARBON DIOXIDE LEVEL 30 MMOL/L (20-31); CHLORIDE LEVEL 108 MMOL/L (98-107); CREATININE FOR GFR 0.93 MG/DL (0.55-1.30); GLOMERULAR FILTRATION RATE > 60.0 (>32); GLUCOSE, FASTING 126 MG/DL (74-106); POTASSIUM SERUM 3.9 MMOL/L (3.5-5.1); SODIUM LEVEL 145 MMOL/L (136-145)
[2022-08-27 08:00] VITALS: BP 118/82
[2022-08-27] MEDS: APIXABAN 5 MG TAB (ELIQUIS) PO SCH ×2 (08:20→20:56)
[2022-08-27] MEDS: allopurinoL 100 MG TAB PO SCH (08:23)
[2022-08-27] MEDS: VANCOMYCIN HCL 750 MG, VIAL MATE ADAPTER 1 EACH in D5W 250 ML IV SCH (08:25)
[2022-08-27] MEDS: METOPROLOL TART 25 MG TABLET PO SCH ×3 (08:28→20:56)
[2022-08-27] MEDS: DOCUSATE SODIUM 100MG CAPSULE PO SCH ×2 (08:44→20:55)
[2022-08-27] MEDS: VANCOMYCIN HCL 500 MG in D5W MINI-BAG PLUS 100 ML IV SCH (10:04)
[2022-08-27 12:00] VITALS: BP 162/68
[2022-08-27 16:00] VITALS: BP 152/92
[2022-08-27] MEDS: ACETAMINOPHEN TAB 650MG DOSE (2X325MG) PO PRN (18:53)
[2022-08-27 20:00] VITALS: BP 110/73
[2022-08-27] MEDS: ASPIRIN 81MG CHEW TABLET PO SCH (20:55)
[2022-08-27] MEDS: ATORVASTATIN 20 MG TAB PO SCH (20:55)
[2022-08-28 04:00] VITALS: BP 109/70
[2022-08-28 05:30] LABS: HEMATOCRIT 34.7 % (36.0-47.0); MEAN CORPUSCULAR HEMOGLOBIN 32.4 pg (27.0-33.0); MEAN CORPUSCULAR HGB CONC 31.7 g/dl (32.0-36.5); MEAN CORPUSCULAR VOLUME 102.1 fl (80.0-96.0); PLATELET COUNT, AUTOMATED 177 10^3/uL (150-450); WHITE BLOOD COUNT 9.5 10^3/uL (4.0-10.0)
[2022-08-28 05:57] LABS: BLOOD UREA NITROGEN 26 MG/DL (9-23); CALCIUM LEVEL 8.9 MG/DL (8.3-10.6); CARBON DIOXIDE LEVEL 30 MMOL/L (20-31); CHLORIDE LEVEL 105 MMOL/L (98-107); CREATININE FOR GFR 0.94 MG/DL (0.55-1.30); GLOMERULAR FILTRATION RATE > 60.0 (>32); GLUCOSE, FASTING 95 MG/DL (74-106); POTASSIUM SERUM 3.7 MMOL/L (3.5-5.1); SODIUM LEVEL 142 MMOL/L (136-145)
[2022-08-28 08:00] VITALS: BP 126/73
[2022-08-28] MEDS: VANCOMYCIN HCL 750 MG, VIAL MATE ADAPTER 1 EACH in D5W 250 ML IV SCH (08:00)
[2022-08-28] MEDS ORDERED: ISOVUE-370 76% 100ML VIAL As Ordered ONE (08:42)
[2022-08-28] MEDS: allopurinoL 100 MG TAB PO SCH (09:54)
[2022-08-28] MEDS: VANCOMYCIN HCL 500 MG in D5W MINI-BAG PLUS 100 ML IV SCH (09:54)
[2022-08-28] MEDS: DOCUSATE SODIUM 100MG CAPSULE PO SCH ×2 (09:56→20:15)
[2022-08-28] MEDS: APIXABAN 5 MG TAB (ELIQUIS) PO SCH ×2 (09:56→20:15)
[2022-08-28] MEDS: METOPROLOL TART 25 MG TABLET PO SCH (09:56)
[2022-08-28 12:15] VITALS: BP 129/74
[2022-08-28 15:35] VITALS: BP 120/74
[2022-08-28] MEDS ORDERED: PILL CUTTER 1 EACH XX PRN (16:55)
[2022-08-28 17:58] LABS: CHOLESTEROL RISK RATIO 2.45 (<5); HDL CHOLESTEROL 46.9 MG/DL (>40); LDL CHOLESTEROL 54.5 MG/DL (<100)
[2022-08-28 19:07] LABS: HEMOGLOBIN A1c 5.4 % (4.0-6.0)
[2022-08-28 20:00] VITALS: BP 133/90
[2022-08-28] MEDS: ATORVASTATIN 20 MG TAB PO SCH (20:15)
[2022-08-28] MEDS: ASPIRIN 81MG CHEW TABLET PO SCH (20:15)
[2022-08-29] VITALS: BP 124/64
[2022-08-29 04:00] VITALS: BP 110/61
[2022-08-29 05:17] LABS: HEMATOCRIT 33.6 % (36.0-47.0); HEMOGLOBIN 10.6 g/dl (12.0-15.5); MEAN CORPUSCULAR HEMOGLOBIN 31.9 pg (27.0-33.0); MEAN CORPUSCULAR HGB CONC 31.5 g/dl (32.0-36.5); MEAN CORPUSCULAR VOLUME 101.2 fl (80.0-96.0); PLATELET COUNT, AUTOMATED 180 10^3/uL (150-450); RED BLOOD COUNT 3.32 10^6/uL (4.00-5.40); WHITE BLOOD COUNT 8.3 10^3/uL (4.0-10.0)
[2022-08-29 05:56] LABS: CALCIUM LEVEL 9.1 MG/DL (8.3-10.6); CREATININE FOR GFR 0.96 MG/DL (0.55-1.30); GLOMERULAR FILTRATION RATE 58.9 (>32); POTASSIUM SERUM 3.9 MMOL/L (3.5-5.1)
[2022-08-29 08:00] VITALS: BP 112/77
[2022-08-29] MEDS: LOSARTAN 25 MG TAB PO SCH (09:17)
[2022-08-29] MEDS: allopurinoL 100 MG TAB PO SCH (09:17)
[2022-08-29] MEDS: APIXABAN 5 MG TAB (ELIQUIS) PO SCH (09:18)
[2022-08-29] MEDS: METOPROLOL SUCC *XL* 25MG TAB (TopROL *XL*) PO SCH (09:18)
[2022-08-29] MEDS: DOCUSATE SODIUM 100MG CAPSULE PO SCH ×2 (09:18→21:10)
[2022-08-29 12:00] VITALS: BP 140/88
[2022-08-29] MEDS ORDERED: RIVAROXABAN 15MG TAB (XARELTO) PO SCH (18:00)
[2022-08-29 20:41] VITALS: BP 129/95
[2022-08-29] MEDS: ATORVASTATIN 20 MG TAB PO SCH (21:10)
[2022-08-29] MEDS: ASPIRIN 81MG CHEW TABLET PO SCH (21:10)
[2022-08-30 04:23] VITALS: BP 114/55
[2022-08-30 05:13] LABS: HEMATOCRIT 33.8 % (36.0-47.0); HEMOGLOBIN 10.9 g/dl (12.0-15.5); MEAN CORPUSCULAR HEMOGLOBIN 32.3 pg (27.0-33.0); MEAN CORPUSCULAR HGB CONC 32.2 g/dl (32.0-36.5); MEAN CORPUSCULAR VOLUME 100.3 fl (80.0-96.0); PLATELET COUNT, AUTOMATED 185 10^3/uL (150-450); RED BLOOD COUNT 3.37 10^6/uL (4.00-5.40); WHITE BLOOD COUNT 7.4 10^3/uL (4.0-10.0)
[2022-08-30 05:58] LABS: BLOOD UREA NITROGEN 21 MG/DL (9-23); CALCIUM LEVEL 8.8 MG/DL (8.3-10.6); CARBON DIOXIDE LEVEL 28 MMOL/L (20-31); CHLORIDE LEVEL 107 MMOL/L (98-107); CREATININE FOR GFR 0.85 MG/DL (0.55-1.30); GLOMERULAR FILTRATION RATE > 60.0 (>32); GLUCOSE, FASTING 90 MG/DL (74-106); POTASSIUM SERUM 4.7 MMOL/L (3.5-5.1); SODIUM LEVEL 140 MMOL/L (136-145)
[2022-08-30 08:00] VITALS: BP 115/65
[2022-08-30 09:07] VITALS: BP 115/65
[2022-08-30] MEDS: METOPROLOL SUCC *XL* 25MG TAB (TopROL *XL*) PO SCH (09:07)
[2022-08-30] MEDS: allopurinoL 100 MG TAB PO SCH (09:07)
[2022-08-30] MEDS: LOSARTAN 25 MG TAB PO SCH (09:07)
[2022-08-30] MEDS: DOCUSATE SODIUM 100MG CAPSULE PO SCH (09:07)
[2022-08-30] MEDS ORDERED: COZA1TAB PO (15:28)
[2022-08-30] MEDS ORDERED: XARE15TA PO (15:28)
[2022-08-30] MEDS ORDERED: METO1TAB32 PO (15:28)
== END 2022-08-30 16:55 | disposition home or self-care (01) | DRG 65 ==
LOC: M ED 06:39 → M ED INP 11:05 → M PCU 14:32
PROVIDERS: ADMIT Family Medicine; ATTEND Student in an Organized Health Care Education/Training Program
DX: I63.411 Cerebral infarction due to embolism of right middle cerebral artery (principal); G81.94 Hemiplegia, unspecified affecting left nondominant side; I50.22 Chronic systolic (congestive) heart failure; I48.91 Unspecified atrial fibrillation; I11.0 Hypertensive heart disease with heart failure; I25.10 Atherosclerotic heart disease of native coronary artery without angina pectoris; E78.5 Hyperlipidemia, unspecified; M17.0 Bilateral primary osteoarthritis of knee; R73.03 Prediabetes; E66.9 Obesity, unspecified; I34.0 Nonrheumatic mitral (valve) insufficiency; I27.20 Pulmonary hypertension, unspecified; M10.041 Idiopathic gout, right hand; M79.632 Pain in left forearm; M79.622 Pain in left upper arm; M19.042 Primary osteoarthritis, left hand; I49.3 Ventricular premature depolarization; Z98.49 Cataract extraction status, unspecified eye; Z68.32 Body mass index [BMI] 32.0-32.9, adult; Z79.82 Long term (current) use of aspirin; Z79.899 Other long term (current) drug therapy; Z79.01 Long term (current) use of anticoagulants; Z79.891 Long term (current) use of opiate analgesic

== ENCOUNTER 2022-08-29 13:12 | Inpatient (IN) | payer MEDICARE, MEDICAID ==
[~2022-08-29] VITALS: Ht 157.5 cm; Wt 77.3 kg
[~2022-08-29 13:12] MED LIST changes: +DOCU100C17 PO; +TORS20TA2 PO; +med rec comment
[2022-08-30] MEDS ORDERED: XARE15TA PO (15:28)
[2022-08-30] MEDS ORDERED: METO1TAB32 PO (15:28)
[2022-08-30] MEDS ORDERED: COZA1TAB PO (15:28)
[2022-08-30] MEDS ORDERED: BISACODYL 10MG SUPP PR PRN (16:25)
[2022-08-30 17:00] VITALS: BP 131/83
[2022-08-30] MEDS ORDERED: HOME MED LIST COMPLETE! XX SCH (17:30)
[2022-08-30] MEDS ORDERED: guaiFENesin DM LIQ 10ML UD PO PRN (17:40)
[2022-08-30] MEDS ORDERED: PILL CUTTER 1 EACH XX PRN (18:15)
[2022-08-30] MEDS: RIVAROXABAN 15MG TAB (XARELTO) PO SCH (18:34)
[2022-08-30 19:53] VITALS: BP 133/83
[2022-08-30] MEDS ORDERED: IPRATROPIUM 0.5MG/ALBUTEROL 2.5MG INH SOL UD 3ML (DUONEB) NEB SCH (20:00)
[2022-08-30] MEDS: ACETAMINOPHEN TAB 650MG DOSE (2X325MG) PO PRN (20:05)
[2022-08-30] MEDS: ATORVASTATIN 20 MG TAB PO SCH (20:05)
[2022-08-30] MEDS: SENNA 8.6 MG TAB (SENOKOT) PO SCH (20:05)
[2022-08-30] MEDS: DOCUSATE SODIUM 100MG CAPSULE PO SCH (20:05)
[2022-08-30] MEDS: ASPIRIN 81MG ENTERIC TABLET PO SCH (20:05)
[2022-08-30] MEDS: REMEDY PHYTOPLEX Z-GUARD PASTE 113GM TUBE (FROM STOREROOM PRODUCT) TOP SCH (20:09)
[2022-08-31 05:19] VITALS: BP 161/96
[2022-08-31 06:00] VITALS: BP 128/64
[2022-08-31 06:33] LABS: BASO # 0.1 10^3/uL (0.0-0.2); BASO % 0.7 % (0.0-1.0); EOS # 0.2 10^3/uL (0.0-0.5); EOS % 3.2 % (0.0-3.0); HEMATOCRIT 34.7 % (36.0-47.0); LYMPH # 1.7 10^3/uL (1.5-5.0); LYMPH % 23.4 % (24.0-44.0); MEAN CORPUSCULAR HEMOGLOBIN 31.8 pg (27.0-33.0); MEAN CORPUSCULAR HGB CONC 31.7 g/dl (32.0-36.5); MEAN CORPUSCULAR VOLUME 100.3 fl (80.0-96.0); MONO # 0.5 10^3/uL (0.0-0.8); MONO % 7.5 % (2.0-8.0); NEUTROPHILS # 4.7 10^3/uL (1.5-8.5); NEUTROPHILS % 64.8 % (36.0-66.0); PLATELET COUNT, AUTOMATED 215 10^3/uL (150-450); RED BLOOD COUNT 3.46 10^6/uL (4.00-5.40); WHITE BLOOD COUNT 7.2 10^3/uL (4.0-10.0)
[2022-08-31 07:08] LABS: ALBUMIN 2.6 G/DL (3.2-5.2); ALKALINE PHOSPHATASE 112 U/L (46-116); ALT/SGPT 27 U/L (7.0-40); AST/SGOT 31 U/L (<34); BILIRUBIN,TOTAL 0.8 MG/DL (0.3-1.2); BLOOD UREA NITROGEN 21 MG/DL (9-23); CALCIUM LEVEL 9.1 MG/DL (8.3-10.6); CARBON DIOXIDE LEVEL 21 MMOL/L (20-31); CHLORIDE LEVEL 110 MMOL/L (98-107); CREATININE FOR GFR 0.76 MG/DL (0.55-1.30); GLOMERULAR FILTRATION RATE > 60.0 (>32); GLUCOSE, FASTING 100 MG/DL (74-106); POTASSIUM SERUM 4.4 MMOL/L (3.5-5.1); SODIUM LEVEL 142 MMOL/L (136-145); TOTAL PROTEIN 5.5 G/DL (5.7-8.2)
[2022-08-31] MEDS: LIDOCAINE 5% (LIDODERM) PATCH TD SCH (09:00)
[2022-08-31] MEDS: REMEDY PHYTOPLEX Z-GUARD PASTE 113GM TUBE (FROM STOREROOM PRODUCT) TOP SCH ×3 (09:00→21:00)
[2022-08-31] MEDS: MULTIVITAMINS/MINERALS THERAP 1 TAB PO SCH (10:09)
[2022-08-31] MEDS: PANTOPRAZOLE 40MG TAB (PROTONIX) PO SCH (10:09)
[2022-08-31] MEDS: allopurinoL 100 MG TAB PO SCH (10:10)
[2022-08-31] MEDS: VITAMIN D 1,000 INTERNATIONAL UNITS TABLET PO SCH (10:11)
[2022-08-31] MEDS: METOPROLOL SUCC *XL* 25MG TAB (TopROL *XL*) PO SCH (10:11)
[2022-08-31] MEDS: LOSARTAN 25 MG TAB PO SCH (10:12)
[2022-08-31] MEDS: TORSEMIDE 20 MG TAB PO SCH (10:13)
[2022-08-31] MEDS: DOCUSATE SODIUM 100MG CAPSULE PO SCH ×2 (10:13→21:39)
[2022-08-31 14:00] VITALS: BP 128/81
[2022-08-31] MEDS: FLUoxetine 10 MG CAP PO SCH (18:30)
[2022-08-31] MEDS: oxyBUTYnin 5 MG TAB PO SCH ×2 (18:30→21:40)
[2022-08-31] MEDS: RIVAROXABAN 15MG TAB (XARELTO) PO SCH (18:31)
[2022-08-31 20:00] VITALS: BP 122/87
[2022-08-31] MEDS: ATORVASTATIN 20 MG TAB PO SCH (21:39)
[2022-08-31] MEDS: ASPIRIN 81MG ENTERIC TABLET PO SCH (21:39)
[2022-08-31] MEDS: SENNA 8.6 MG TAB (SENOKOT) PO SCH (21:40)
[2022-09-01 06:00] VITALS: BP 137/94
[2022-09-01] MEDS: REMEDY PHYTOPLEX Z-GUARD PASTE 113GM TUBE (FROM STOREROOM PRODUCT) TOP SCH ×3 (09:00→20:36)
[2022-09-01] MEDS: DOCUSATE SODIUM 100MG CAPSULE PO SCH ×2 (09:00→20:35)
[2022-09-01] MEDS: FLUoxetine 10 MG CAP PO SCH (09:10)
[2022-09-01] MEDS: allopurinoL 100 MG TAB PO SCH (09:10)
[2022-09-01] MEDS: MULTIVITAMINS/MINERALS THERAP 1 TAB PO SCH (09:10)
[2022-09-01] MEDS: METOPROLOL SUCC *XL* 25MG TAB (TopROL *XL*) PO SCH (09:11)
[2022-09-01] MEDS: LOSARTAN 25 MG TAB PO SCH (09:11)
[2022-09-01] MEDS: oxyBUTYnin 5 MG TAB PO SCH ×2 (09:13→20:35)
[2022-09-01] MEDS: VITAMIN D 1,000 INTERNATIONAL UNITS TABLET PO SCH (09:13)
[2022-09-01] MEDS: LIDOCAINE 5% (LIDODERM) PATCH TD SCH (09:14)
[2022-09-01] MEDS: TORSEMIDE 20 MG TAB PO SCH (09:14)
[2022-09-01] MEDS: PANTOPRAZOLE 40MG TAB (PROTONIX) PO SCH (09:14)
[2022-09-01 14:00] VITALS: BP 139/82
[2022-09-01] MEDS: RIVAROXABAN 15MG TAB (XARELTO) PO SCH (17:14)
[2022-09-01 20:00] VITALS: BP 148/105
[2022-09-01] MEDS: SENNA 8.6 MG TAB (SENOKOT) PO SCH (20:35)
[2022-09-01] MEDS: ATORVASTATIN 20 MG TAB PO SCH (20:35)
[2022-09-01] MEDS: ASPIRIN 81MG ENTERIC TABLET PO SCH (20:35)
[2022-09-02 06:00] VITALS: BP 123/76
[2022-09-02] MEDS: DOCUSATE SODIUM 100MG CAPSULE PO SCH ×2 (08:41→20:08)
[2022-09-02] MEDS: VITAMIN D 1,000 INTERNATIONAL UNITS TABLET PO SCH (08:41)
[2022-09-02] MEDS: MULTIVITAMINS/MINERALS THERAP 1 TAB PO SCH (08:41)
[2022-09-02] MEDS: FLUoxetine 10 MG CAP PO SCH (08:42)
[2022-09-02] MEDS: allopurinoL 100 MG TAB PO SCH (08:42)
[2022-09-02] MEDS: oxyBUTYnin 5 MG TAB PO SCH ×2 (08:42→20:08)
[2022-09-02] MEDS: PANTOPRAZOLE 40MG TAB (PROTONIX) PO SCH (08:42)
[2022-09-02] MEDS: TORSEMIDE 20 MG TAB PO SCH (08:42)
[2022-09-02] MEDS: LIDOCAINE 5% (LIDODERM) PATCH TD SCH ×2 (08:43→20:08)
[2022-09-02] MEDS: LOSARTAN 25 MG TAB PO SCH (08:43)
[2022-09-02] MEDS: METOPROLOL SUCC *XL* 25MG TAB (TopROL *XL*) PO SCH (08:43)
[2022-09-02] MEDS: REMEDY PHYTOPLEX Z-GUARD PASTE 113GM TUBE (FROM STOREROOM PRODUCT) TOP SCH ×3 (08:44→20:09)
[2022-09-02 14:03] VITALS: BP 127/82
[2022-09-02] MEDS: RIVAROXABAN 15MG TAB (XARELTO) PO SCH (17:48)
[2022-09-02 20:00] VITALS: BP 119/72
[2022-09-02] MEDS: SENNA 8.6 MG TAB (SENOKOT) PO SCH (20:08)
[2022-09-02] MEDS: ATORVASTATIN 20 MG TAB PO SCH (20:08)
[2022-09-02] MEDS: ASPIRIN 81MG ENTERIC TABLET PO SCH (20:08)
[2022-09-03 06:06] LABS: BASO # 0.1 10^3/uL (0.0-0.2); BASO % 0.6 % (0.0-1.0); EOS # 0.2 10^3/uL (0.0-0.5); EOS % 2.9 % (0.0-3.0); HEMATOCRIT 34.8 % (36.0-47.0); HEMOGLOBIN 11.4 g/dl (12.0-15.5); LYMPH # 1.6 10^3/uL (1.5-5.0); LYMPH % 19.6 % (24.0-44.0); MEAN CORPUSCULAR HEMOGLOBIN 32.2 pg (27.0-33.0); MEAN CORPUSCULAR HGB CONC 32.8 g/dl (32.0-36.5); MEAN CORPUSCULAR VOLUME 98.3 fl (80.0-96.0); MONO # 0.7 10^3/uL (0.0-0.8); MONO % 7.8 % (2.0-8.0); NEUTROPHILS # 5.7 10^3/uL (1.5-8.5); NEUTROPHILS % 68.9 % (36.0-66.0); PLATELET COUNT, AUTOMATED 230 10^3/uL (150-450); RED BLOOD COUNT 3.54 10^6/uL (4.00-5.40); WHITE BLOOD COUNT 8.3 10^3/uL (4.0-10.0)
[2022-09-03 06:38] LABS: CALCIUM LEVEL 8.8 MG/DL (8.3-10.6); CREATININE FOR GFR 1.1 MG/DL (0.55-1.30); GLOMERULAR FILTRATION RATE 50.4 (>32); POTASSIUM SERUM 3.9 MMOL/L (3.5-5.1)
[2022-09-03 06:56] VITALS: BP 126/84
[2022-09-03] MEDS: oxyBUTYnin 5 MG TAB PO SCH ×2 (08:28→22:16)
[2022-09-03] MEDS: TORSEMIDE 20 MG TAB PO SCH (08:28)
[2022-09-03] MEDS: VITAMIN D 1,000 INTERNATIONAL UNITS TABLET PO SCH (08:28)
[2022-09-03] MEDS: LIDOCAINE 5% (LIDODERM) PATCH TD SCH ×2 (08:28→09:00)
[2022-09-03] MEDS: METOPROLOL SUCC *XL* 25MG TAB (TopROL *XL*) PO SCH (08:29)
[2022-09-03] MEDS: FLUoxetine 10 MG CAP PO SCH (08:29)
[2022-09-03] MEDS: allopurinoL 100 MG TAB PO SCH (08:29)
[2022-09-03] MEDS: LOSARTAN 25 MG TAB PO SCH (08:29)
[2022-09-03] MEDS: PANTOPRAZOLE 40MG TAB (PROTONIX) PO SCH (08:29)
[2022-09-03] MEDS: MULTIVITAMINS/MINERALS THERAP 1 TAB PO SCH (08:29)
[2022-09-03] MEDS: DOCUSATE SODIUM 100MG CAPSULE PO SCH ×2 (08:29→21:00)
[2022-09-03] MEDS: REMEDY PHYTOPLEX Z-GUARD PASTE 113GM TUBE (FROM STOREROOM PRODUCT) TOP SCH ×3 (08:30→21:00)
[2022-09-03 11:24] LABS: RSV AMPLIFICATION NEGATIVE (NEGATIVE)
[2022-09-03 14:00] VITALS: BP 106/56
[2022-09-03] MEDS: RIVAROXABAN 15MG TAB (XARELTO) PO SCH (17:13)
[2022-09-03 20:00] VITALS: BP 125/89
[2022-09-03] MEDS: SENNA 8.6 MG TAB (SENOKOT) PO SCH (21:00)
[2022-09-03] MEDS: ASPIRIN 81MG ENTERIC TABLET PO SCH (22:16)
[2022-09-03] MEDS: ATORVASTATIN 20 MG TAB PO SCH (22:16)
[2022-09-04 06:00] VITALS: BP 132/98
[2022-09-04] MEDS: DOCUSATE SODIUM 100MG CAPSULE PO SCH ×2 (08:14→21:02)
[2022-09-04] MEDS: VITAMIN D 1,000 INTERNATIONAL UNITS TABLET PO SCH (08:14)
[2022-09-04] MEDS: PANTOPRAZOLE 40MG TAB (PROTONIX) PO SCH (08:14)
[2022-09-04] MEDS: TORSEMIDE 20 MG TAB PO SCH (08:14)
[2022-09-04] MEDS: allopurinoL 100 MG TAB PO SCH (08:14)
[2022-09-04] MEDS: MULTIVITAMINS/MINERALS THERAP 1 TAB PO SCH (08:14)
[2022-09-04] MEDS: LIDOCAINE 5% (LIDODERM) PATCH TD SCH (08:14)
[2022-09-04] MEDS: LOSARTAN 25 MG TAB PO SCH (08:14)
[2022-09-04] MEDS: METOPROLOL SUCC *XL* 25MG TAB (TopROL *XL*) PO SCH (08:14)
[2022-09-04] MEDS: FLUoxetine 10 MG CAP PO SCH (08:14)
[2022-09-04] MEDS: oxyBUTYnin 5 MG TAB PO SCH ×2 (08:14→21:02)
[2022-09-04] MEDS: REMEDY PHYTOPLEX Z-GUARD PASTE 113GM TUBE (FROM STOREROOM PRODUCT) TOP SCH ×3 (08:15→21:03)
[2022-09-04] MEDS: BACLOFEN 5MG PER 1/2 TABLET PO SCH ×2 (12:04→21:02)
[2022-09-04 14:00] VITALS: BP 118/74
[2022-09-04] MEDS: RIVAROXABAN 15MG TAB (XARELTO) PO SCH (17:06)
[2022-09-04] MEDS: DICLOFENAC EPOLAMINE 1.3% PATCH TOP SCH (17:07)
[2022-09-04 19:46] VITALS: BP 102/71
[2022-09-04] MEDS: ATORVASTATIN 20 MG TAB PO SCH (21:02)
[2022-09-04] MEDS: ASPIRIN 81MG ENTERIC TABLET PO SCH (21:02)
[2022-09-04] MEDS: SENNA 8.6 MG TAB (SENOKOT) PO SCH (21:03)
[2022-09-05 05:41] VITALS: BP 123/78
[2022-09-05] MEDS: DICLOFENAC EPOLAMINE 1.3% PATCH TOP SCH ×2 (05:46→17:13)
[2022-09-05 07:02] LABS: BASO % 0.4 % (0.0-1.0); EOS # 0.2 10^3/uL (0.0-0.5); EOS % 2.5 % (0.0-3.0); HEMATOCRIT 34.5 % (36.0-47.0); HEMOGLOBIN 11.1 g/dl (12.0-15.5); LYMPH # 1.7 10^3/uL (1.5-5.0); LYMPH % 19.1 % (24.0-44.0); MEAN CORPUSCULAR HEMOGLOBIN 31.9 pg (27.0-33.0); MEAN CORPUSCULAR HGB CONC 32.2 g/dl (32.0-36.5); MEAN CORPUSCULAR VOLUME 99.1 fl (80.0-96.0); MONO # 0.8 10^3/uL (0.0-0.8); MONO % 9.2 % (2.0-8.0); NEUTROPHILS # 6.2 10^3/uL (1.5-8.5); NEUTROPHILS % 68.5 % (36.0-66.0); PLATELET COUNT, AUTOMATED 246 10^3/uL (150-450); RED BLOOD COUNT 3.48 10^6/uL (4.00-5.40); WHITE BLOOD COUNT 9.1 10^3/uL (4.0-10.0)
[2022-09-05 07:26] LABS: CALCIUM LEVEL 9.1 MG/DL (8.3-10.6); CREATININE FOR GFR 1.18 MG/DL (0.55-1.30); GLOMERULAR FILTRATION RATE 46.5 (>32); POTASSIUM SERUM 3.6 MMOL/L (3.5-5.1)
[2022-09-05] MEDS: DOCUSATE SODIUM 100MG CAPSULE PO SCH ×2 (08:16→22:08)
[2022-09-05] MEDS: FLUoxetine 10 MG CAP PO SCH (08:16)
[2022-09-05] MEDS: METOPROLOL SUCC *XL* 25MG TAB (TopROL *XL*) PO SCH (08:16)
[2022-09-05] MEDS: BACLOFEN 5MG PER 1/2 TABLET PO SCH (08:17)
[2022-09-05] MEDS: VITAMIN D 1,000 INTERNATIONAL UNITS TABLET PO SCH (08:17)
[2022-09-05] MEDS: MULTIVITAMINS/MINERALS THERAP 1 TAB PO SCH (08:17)
[2022-09-05] MEDS: allopurinoL 100 MG TAB PO SCH (08:17)
[2022-09-05] MEDS: LOSARTAN 25 MG TAB PO SCH (08:18)
[2022-09-05] MEDS: REMEDY PHYTOPLEX Z-GUARD PASTE 113GM TUBE (FROM STOREROOM PRODUCT) TOP SCH ×3 (08:18→22:09)
[2022-09-05] MEDS: LIDOCAINE 5% (LIDODERM) PATCH TD SCH (08:18)
[2022-09-05] MEDS: oxyBUTYnin 5 MG TAB PO SCH ×2 (08:18→22:09)
[2022-09-05] MEDS: PANTOPRAZOLE 40MG TAB (PROTONIX) PO SCH (08:18)
[2022-09-05] MEDS ORDERED: TORSEMIDE 20 MG TAB PO SCH (09:00)
[2022-09-05] MEDS: ACETAMINOPHEN TAB 650MG DOSE (2X325MG) PO PRN (09:15)
[2022-09-05] MEDS ORDERED: NS 1,000 ML IV SCH (11:30)
[2022-09-05 14:00] VITALS: BP 107/64
[2022-09-05] MEDS: COMBIVENT RESPIMAT 100-20MCG INHALER 4GM INH SCH ×2 (14:00→20:22)
[2022-09-05] MEDS: RIVAROXABAN 15MG TAB (XARELTO) PO SCH (17:12)
[2022-09-05 22:00] VITALS: BP 135/81
[2022-09-05] MEDS: SENNA 8.6 MG TAB (SENOKOT) PO SCH (22:08)
[2022-09-05] MEDS: ATORVASTATIN 20 MG TAB PO SCH (22:09)
[2022-09-05] MEDS: ASPIRIN 81MG ENTERIC TABLET PO SCH (22:09)
[2022-09-06] MEDS ORDERED: cefTRIAXone SOD 1 GM in D5W MINI-BAG PLUS 50 ML IV SCH (01:00)
[2022-09-06 01:19] LABS: ABG BASE EXCESS 3.9 (-2.0-2.0); ABG HCO3 27.7 MEQ/L (22.0-26.0); ABG O2 SATURATION 98.6 % (95.0-99.0); ABG PARTIAL PRESSURE CO2 38.7 mmHg (35.0-45.0); ABG PARTIAL PRESSURE O2 121.1 mmHg (75.0-100.0); ABG TOTAL CO2 28.8 MEQ/L (23.0-31.0); ABG pH (ARTERIAL) 7.472 UNITS (7.350-7.450)
[2022-09-06] MEDS ORDERED: DOXYCYCLINE HYCLATE 100 MG in D5W MINI-BAG PLUS 100 ML IV SCH (02:00)
[2022-09-06] MEDS: DICLOFENAC EPOLAMINE 1.3% PATCH TOP SCH ×2 (05:30→17:38)
[2022-09-06 06:00] VITALS: BP 132/90
[2022-09-06 06:09] LABS: VENOUS BASE EXCESS 4.9 (-2.0-2.0); VENOUS HCO3 30.1 MEQ/L (23.0-27.0); VENOUS O2 SATURATION 86.7 % (60.0-80.0); VENOUS PARTIAL PRESSURE CO2 47.3 mmHg (38.0-50.0); VENOUS PARTIAL PRESSURE O2 52.4 mmHg (30.0-50.0); VENOUS PH 7.422 UNITS (7.330-7.430); VENOUS STANDARD HCO3 28.6 MEQ/L; VENOUS TOTAL CO2 31.6 MEQ/L (24.0-28.0)
[2022-09-06 06:18] LABS: BASO % 0.4 % (0.0-1.0); EOS # 0.2 10^3/uL (0.0-0.5); EOS % 2.6 % (0.0-3.0); HEMATOCRIT 34.8 % (36.0-47.0); LYMPH # 1.7 10^3/uL (1.5-5.0); LYMPH % 21.3 % (24.0-44.0); MEAN CORPUSCULAR HEMOGLOBIN 31.8 pg (27.0-33.0); MEAN CORPUSCULAR HGB CONC 31.6 g/dl (32.0-36.5); MEAN CORPUSCULAR VOLUME 100.6 fl (80.0-96.0); MONO # 0.7 10^3/uL (0.0-0.8); MONO % 8.1 % (2.0-8.0); NEUTROPHILS # 5.4 10^3/uL (1.5-8.5); NEUTROPHILS % 67.2 % (36.0-66.0); PLATELET COUNT, AUTOMATED 221 10^3/uL (150-450); RED BLOOD COUNT 3.46 10^6/uL (4.00-5.40); WHITE BLOOD COUNT 8.1 10^3/uL (4.0-10.0)
[2022-09-06 06:41] LABS: CALCIUM LEVEL 8.7 MG/DL (8.3-10.6); CREATININE FOR GFR 1.15 MG/DL (0.55-1.30); GLOMERULAR FILTRATION RATE 47.9 (>32); POTASSIUM SERUM 3.6 MMOL/L (3.5-5.1)
[2022-09-06] MEDS: COMBIVENT RESPIMAT 100-20MCG INHALER 4GM INH SCH ×3 (08:31→20:08)
[2022-09-06] MEDS: DOCUSATE SODIUM 100MG CAPSULE PO SCH ×2 (08:50→20:44)
[2022-09-06] MEDS: FLUoxetine 10 MG CAP PO SCH (08:50)
[2022-09-06] MEDS: oxyBUTYnin 5 MG TAB PO SCH ×2 (08:50→20:44)
[2022-09-06] MEDS: PANTOPRAZOLE 40MG TAB (PROTONIX) PO SCH (08:50)
[2022-09-06] MEDS: MULTIVITAMINS/MINERALS THERAP 1 TAB PO SCH (08:50)
[2022-09-06] MEDS: VITAMIN D 1,000 INTERNATIONAL UNITS TABLET PO SCH (08:50)
[2022-09-06] MEDS: METOPROLOL SUCC *XL* 25MG TAB (TopROL *XL*) PO SCH (08:51)
[2022-09-06] MEDS: LOSARTAN 25 MG TAB PO SCH (08:51)
[2022-09-06] MEDS: LIDOCAINE 5% (LIDODERM) PATCH TD SCH (08:52)
[2022-09-06] MEDS: REMEDY PHYTOPLEX Z-GUARD PASTE 113GM TUBE (FROM STOREROOM PRODUCT) TOP SCH ×3 (08:52→20:45)
[2022-09-06] MEDS: allopurinoL 100 MG TAB PO SCH (08:52)
[2022-09-06 14:00] VITALS: BP 142/64
[2022-09-06] MEDS ORDERED: DOXYCYCLINE HYCLATE 100MG TABLET PO SCH (14:00)
[2022-09-06] MEDS: RIVAROXABAN 15MG TAB (XARELTO) PO SCH (17:37)
[2022-09-06 20:00] VITALS: BP 123/74
[2022-09-06] MEDS: SENNA 8.6 MG TAB (SENOKOT) PO SCH (20:44)
[2022-09-06] MEDS: ATORVASTATIN 20 MG TAB PO SCH (20:44)
[2022-09-06] MEDS: ASPIRIN 81MG ENTERIC TABLET PO SCH (20:44)
[2022-09-07] MEDS: DICLOFENAC EPOLAMINE 1.3% PATCH TOP SCH ×2 (05:33→19:30)
[2022-09-07] MEDS: COMBIVENT RESPIMAT 100-20MCG INHALER 4GM INH SCH ×3 (07:36→20:26)
[2022-09-07] MEDS: METOPROLOL SUCC *XL* 25MG TAB (TopROL *XL*) PO SCH (09:00)
[2022-09-07] MEDS: LOSARTAN 25 MG TAB PO SCH (09:00)
[2022-09-07] MEDS: REMEDY PHYTOPLEX Z-GUARD PASTE 113GM TUBE (FROM STOREROOM PRODUCT) TOP SCH ×3 (09:00→21:17)
[2022-09-07 09:56] LABS: BASO % 0.2 % (0.0-1.0); EOS # 0.1 10^3/uL (0.0-0.5); EOS % 0.8 % (0.0-3.0); HEMATOCRIT 35.7 % (36.0-47.0); HEMOGLOBIN 11.3 g/dl (12.0-15.5); LYMPH # 1.4 10^3/uL (1.5-5.0); LYMPH % 8.4 % (24.0-44.0); MEAN CORPUSCULAR HEMOGLOBIN 31.9 pg (27.0-33.0); MEAN CORPUSCULAR HGB CONC 31.7 g/dl (32.0-36.5); MEAN CORPUSCULAR VOLUME 100.8 fl (80.0-96.0); MONO # 0.8 10^3/uL (0.0-0.8); MONO % 4.7 % (2.0-8.0); NEUTROPHILS # 14.5 10^3/uL (1.5-8.5); NEUTROPHILS % 85.3 % (36.0-66.0); PLATELET COUNT, AUTOMATED 254 10^3/uL (150-450); RED BLOOD COUNT 3.54 10^6/uL (4.00-5.40)
[2022-09-07 10:31] LABS: CALCIUM LEVEL 9.1 MG/DL (8.3-10.6); GLOMERULAR FILTRATION RATE 56.2 (>32); POTASSIUM SERUM 3.8 MMOL/L (3.5-5.1)
[2022-09-07] MEDS: FLUoxetine 10 MG CAP PO SCH (12:10)
[2022-09-07] MEDS: DOCUSATE SODIUM 100MG CAPSULE PO SCH ×2 (12:10→21:17)
[2022-09-07] MEDS: MULTIVITAMINS/MINERALS THERAP 1 TAB PO SCH (12:11)
[2022-09-07] MEDS: PANTOPRAZOLE 40MG TAB (PROTONIX) PO SCH (12:11)
[2022-09-07] MEDS: oxyBUTYnin 5 MG TAB PO SCH ×2 (12:11→21:17)
[2022-09-07] MEDS: allopurinoL 100 MG TAB PO SCH (12:11)
[2022-09-07] MEDS: VITAMIN D 1,000 INTERNATIONAL UNITS TABLET PO SCH (12:12)
[2022-09-07] MEDS: LIDOCAINE 5% (LIDODERM) PATCH TD SCH (12:14)
[2022-09-07] MEDS ORDERED: PIPERACILLIN/TAZOBACTAM SOD 4.5 GM in D5W MINI-BAG PLUS 50 ML IV STA (14:06)
[2022-09-07] MEDS: RIVAROXABAN 15MG TAB (XARELTO) PO SCH (17:10)
[2022-09-07] MEDS: guaiFENesin 200 MG TAB PO SCH ×2 (17:10→21:17)
[2022-09-07] MEDS: LACTOBACILLUS ACIDOPHILUS CAP (BACID) PO SCH (17:11)
[2022-09-07] MEDS: PIPERACILLIN/TAZOBACTAM SOD 4.5 GM in D5W MINI-BAG PLUS 50 ML IV SCH ×2 (17:13→21:44)
[2022-09-07 20:00] VITALS: BP 122/71
[2022-09-07] MEDS: SENNA 8.6 MG TAB (SENOKOT) PO SCH (21:17)
[2022-09-07] MEDS: ATORVASTATIN 20 MG TAB PO SCH (21:17)
[2022-09-07] MEDS: ASPIRIN 81MG ENTERIC TABLET PO SCH (21:17)
[2022-09-08] MEDS: PIPERACILLIN/TAZOBACTAM SOD 4.5 GM in D5W MINI-BAG PLUS 50 ML IV SCH ×4 (03:46→21:59)
[2022-09-08 06:00] VITALS: BP 115/77
[2022-09-08] MEDS: DICLOFENAC EPOLAMINE 1.3% PATCH TOP SCH ×2 (06:22→17:02)
[2022-09-08] MEDS: COMBIVENT RESPIMAT 100-20MCG INHALER 4GM INH SCH ×3 (07:15→21:25)
[2022-09-08] MEDS: DOCUSATE SODIUM 100MG CAPSULE PO SCH ×2 (07:50→20:17)
[2022-09-08] MEDS: guaiFENesin 200 MG TAB PO SCH ×3 (07:50→20:16)
[2022-09-08] MEDS: allopurinoL 100 MG TAB PO SCH (07:50)
[2022-09-08] MEDS: LACTOBACILLUS ACIDOPHILUS CAP (BACID) PO SCH ×2 (07:50→17:01)
[2022-09-08] MEDS: LIDOCAINE 5% (LIDODERM) PATCH TD SCH (07:50)
[2022-09-08] MEDS: PANTOPRAZOLE 40MG TAB (PROTONIX) PO SCH (07:50)
[2022-09-08] MEDS: oxyBUTYnin 5 MG TAB PO SCH ×2 (07:51→20:17)
[2022-09-08] MEDS: LOSARTAN 25 MG TAB PO SCH (07:51)
[2022-09-08] MEDS: FLUoxetine 10 MG CAP PO SCH (07:51)
[2022-09-08] MEDS: METOPROLOL SUCC *XL* 25MG TAB (TopROL *XL*) PO SCH (07:51)
[2022-09-08] MEDS: MULTIVITAMINS/MINERALS THERAP 1 TAB PO SCH (07:51)
[2022-09-08] MEDS: VITAMIN D 1,000 INTERNATIONAL UNITS TABLET PO SCH (07:52)
[2022-09-08] MEDS: REMEDY PHYTOPLEX Z-GUARD PASTE 113GM TUBE (FROM STOREROOM PRODUCT) TOP SCH ×3 (07:52→20:17)
[2022-09-08 14:00] VITALS: BP 128/80
[2022-09-08] MEDS: ACETAMINOPHEN TAB 650MG DOSE (2X325MG) PO PRN (14:36)
[2022-09-08] MEDS: RIVAROXABAN 15MG TAB (XARELTO) PO SCH (17:01)
[2022-09-08 19:16] LABS: HEMATOCRIT 33.6 % (36.0-47.0); HEMOGLOBIN 10.8 g/dl (12.0-15.5); MEAN CORPUSCULAR HGB CONC 32.1 g/dl (32.0-36.5); MEAN CORPUSCULAR VOLUME 99.7 fl (80.0-96.0); PLATELET COUNT, AUTOMATED 247 10^3/uL (150-450); RED BLOOD COUNT 3.37 10^6/uL (4.00-5.40)
[2022-09-08] MEDS: ONDANSETRON 4MG TAB PO PRN (19:21)
[2022-09-08 20:00] VITALS: BP 154/94
[2022-09-08] MEDS: SENNA 8.6 MG TAB (SENOKOT) PO SCH (20:17)
[2022-09-08] MEDS: ATORVASTATIN 20 MG TAB PO SCH (20:17)
[2022-09-08] MEDS: ASPIRIN 81MG ENTERIC TABLET PO SCH (20:17)
[2022-09-09] MEDS ORDERED: PROMETHAZINE 25MG/ML 1ML VIAL IV ONE
[2022-09-09] MEDS: PIPERACILLIN/TAZOBACTAM SOD 4.5 GM in D5W MINI-BAG PLUS 50 ML IV SCH ×4 (03:58→22:45)
[2022-09-09] MEDS: DICLOFENAC EPOLAMINE 1.3% PATCH TOP SCH ×2 (05:16→17:39)
[2022-09-09 06:00] VITALS: BP 123/75
[2022-09-09] MEDS: COMBIVENT RESPIMAT 100-20MCG INHALER 4GM INH SCH ×3 (08:39→22:30)
[2022-09-09] MEDS: PANTOPRAZOLE 40MG TAB (PROTONIX) PO SCH (08:43)
[2022-09-09] MEDS: guaiFENesin 200 MG TAB PO SCH ×3 (08:43→20:28)
[2022-09-09] MEDS: DOCUSATE SODIUM 100MG CAPSULE PO SCH ×2 (08:44→20:28)
[2022-09-09] MEDS: LACTOBACILLUS ACIDOPHILUS CAP (BACID) PO SCH ×2 (08:44→17:39)
[2022-09-09] MEDS: allopurinoL 100 MG TAB PO SCH (08:44)
[2022-09-09] MEDS: oxyBUTYnin 5 MG TAB PO SCH ×2 (08:44→20:27)
[2022-09-09] MEDS: LOSARTAN 25 MG TAB PO SCH (08:44)
[2022-09-09] MEDS: VITAMIN D 1,000 INTERNATIONAL UNITS TABLET PO SCH (08:44)
[2022-09-09] MEDS: MULTIVITAMINS/MINERALS THERAP 1 TAB PO SCH (08:44)
[2022-09-09] MEDS: METOPROLOL SUCC *XL* 25MG TAB (TopROL *XL*) PO SCH (08:44)
[2022-09-09] MEDS: FLUoxetine 10 MG CAP PO SCH (08:44)
[2022-09-09] MEDS: REMEDY PHYTOPLEX Z-GUARD PASTE 113GM TUBE (FROM STOREROOM PRODUCT) TOP SCH ×3 (08:45→20:28)
[2022-09-09] MEDS: LIDOCAINE 5% (LIDODERM) PATCH TD SCH (08:45)
[2022-09-09 09:35] LABS: HEMATOCRIT 33.3 % (36.0-47.0); HEMOGLOBIN 10.6 g/dl (12.0-15.5); MEAN CORPUSCULAR HEMOGLOBIN 31.8 pg (27.0-33.0); MEAN CORPUSCULAR HGB CONC 31.8 g/dl (32.0-36.5); PLATELET COUNT, AUTOMATED 223 10^3/uL (150-450); RED BLOOD COUNT 3.33 10^6/uL (4.00-5.40); WHITE BLOOD COUNT 9.9 10^3/uL (4.0-10.0)
[2022-09-09 10:03] LABS: CALCIUM LEVEL 8.8 MG/DL (8.3-10.6); CREATININE FOR GFR 1.03 MG/DL (0.55-1.30); GLOMERULAR FILTRATION RATE 54.3 (>32); POTASSIUM SERUM 3.9 MMOL/L (3.5-5.1)
[2022-09-09 13:47] VITALS: BP 110/78
[2022-09-09] MEDS: RIVAROXABAN 15MG TAB (XARELTO) PO SCH (17:39)
[2022-09-09 20:00] VITALS: BP 108/74
[2022-09-09] MEDS: SENNA 8.6 MG TAB (SENOKOT) PO SCH (20:27)
[2022-09-09] MEDS: ATORVASTATIN 20 MG TAB PO SCH (20:28)
[2022-09-09] MEDS: ASPIRIN 81MG ENTERIC TABLET PO SCH (20:28)
[2022-09-10] MEDS: PIPERACILLIN/TAZOBACTAM SOD 4.5 GM in D5W MINI-BAG PLUS 50 ML IV SCH ×2 (03:48→10:15)
[2022-09-10] MEDS: DICLOFENAC EPOLAMINE 1.3% PATCH TOP SCH ×2 (05:14→18:05)
[2022-09-10 06:00] VITALS: BP 120/74
[2022-09-10 07:10] LABS: BASO # 0.1 10^3/uL (0.0-0.2); BASO % 0.6 % (0.0-1.0); EOS # 0.3 10^3/uL (0.0-0.5); EOS % 3.2 % (0.0-3.0); HEMATOCRIT 34.1 % (36.0-47.0); HEMOGLOBIN 10.7 g/dl (12.0-15.5); LYMPH # 1.9 10^3/uL (1.5-5.0); LYMPH % 19.3 % (24.0-44.0); MEAN CORPUSCULAR HEMOGLOBIN 31.6 pg (27.0-33.0); MEAN CORPUSCULAR HGB CONC 31.4 g/dl (32.0-36.5); MEAN CORPUSCULAR VOLUME 100.6 fl (80.0-96.0); MONO # 0.7 10^3/uL (0.0-0.8); MONO % 7.6 % (2.0-8.0); NEUTROPHILS # 6.7 10^3/uL (1.5-8.5); NEUTROPHILS % 68.9 % (36.0-66.0); PLATELET COUNT, AUTOMATED 261 10^3/uL (150-450); RED BLOOD COUNT 3.39 10^6/uL (4.00-5.40); WHITE BLOOD COUNT 9.7 10^3/uL (4.0-10.0)
[2022-09-10] MEDS: COMBIVENT RESPIMAT 100-20MCG INHALER 4GM INH SCH ×3 (07:49→20:14)
[2022-09-10 08:01] LABS: CALCIUM LEVEL 9.1 MG/DL (8.3-10.6); CREATININE FOR GFR 1.1 MG/DL (0.55-1.30); GLOMERULAR FILTRATION RATE 50.4 (>32); POTASSIUM SERUM 4.7 MMOL/L (3.5-5.1)
[2022-09-10] MEDS: VITAMIN D 1,000 INTERNATIONAL UNITS TABLET PO SCH (08:02)
[2022-09-10] MEDS: guaiFENesin 200 MG TAB PO SCH ×3 (08:02→21:26)
[2022-09-10] MEDS: PANTOPRAZOLE 40MG TAB (PROTONIX) PO SCH (08:02)
[2022-09-10] MEDS: allopurinoL 100 MG TAB PO SCH (08:02)
[2022-09-10] MEDS: MULTIVITAMINS/MINERALS THERAP 1 TAB PO SCH (08:02)
[2022-09-10] MEDS: DOCUSATE SODIUM 100MG CAPSULE PO SCH ×2 (08:02→21:00)
[2022-09-10] MEDS: FLUoxetine 10 MG CAP PO SCH (08:02)
[2022-09-10] MEDS: LACTOBACILLUS ACIDOPHILUS CAP (BACID) PO SCH ×2 (08:02→18:05)
[2022-09-10] MEDS: LOSARTAN 25 MG TAB PO SCH (08:03)
[2022-09-10] MEDS: METOPROLOL SUCC *XL* 25MG TAB (TopROL *XL*) PO SCH (08:03)
[2022-09-10] MEDS: REMEDY PHYTOPLEX Z-GUARD PASTE 113GM TUBE (FROM STOREROOM PRODUCT) TOP SCH ×3 (08:04→21:27)
[2022-09-10] MEDS: LIDOCAINE 5% (LIDODERM) PATCH TD SCH (09:00)
[2022-09-10] MEDS: oxyBUTYnin 5 MG TAB PO SCH ×2 (10:15→21:25)
[2022-09-10] MEDS: CEFDINIR 300 MG CAP (OMNICEF) PO SCH ×2 (12:39→21:25)
[2022-09-10 14:00] VITALS: BP 116/79
[2022-09-10] MEDS: SODIUM CHLORIDE NASAL 0.65% SPRAY BTL (OCEAN) SCH ×2 (16:00→21:25)
[2022-09-10] MEDS: predniSONE 5 MG TAB PO SCH (16:13)
[2022-09-10] MEDS: RIVAROXABAN 15MG TAB (XARELTO) PO SCH (18:05)
[2022-09-10 20:00] VITALS: BP 131/92
[2022-09-10] MEDS: SENNA 8.6 MG TAB (SENOKOT) PO SCH (21:00)
[2022-09-10] MEDS: FLUTICASONE PROP 0.05% NASAL SPRAY 16 GM (FLONASE) NARES SCH (21:25)
[2022-09-10] MEDS: ASPIRIN 81MG ENTERIC TABLET PO SCH (21:26)
[2022-09-10] MEDS: ATORVASTATIN 20 MG TAB PO SCH (21:26)
[2022-09-10] MEDS: LORATADINE 10 MG TAB PO SCH (21:26)
[2022-09-11] MEDS: DICLOFENAC EPOLAMINE 1.3% PATCH TOP SCH ×2 (05:48→17:46)
[2022-09-11] MEDS: COMBIVENT RESPIMAT 100-20MCG INHALER 4GM INH SCH ×3 (07:56→20:27)
[2022-09-11] MEDS: DULoxetine 20MG CAP (CYMBALTA) PO SCH (08:37)
[2022-09-11] MEDS: oxyBUTYnin 5 MG TAB PO SCH ×2 (08:37→21:07)
[2022-09-11] MEDS: allopurinoL 100 MG TAB PO SCH (08:37)
[2022-09-11] MEDS: MULTIVITAMINS/MINERALS THERAP 1 TAB PO SCH (08:37)
[2022-09-11] MEDS: guaiFENesin 200 MG TAB PO SCH ×3 (08:37→21:07)
[2022-09-11] MEDS: PANTOPRAZOLE 40MG TAB (PROTONIX) PO SCH (08:37)
[2022-09-11] MEDS: CEFDINIR 300 MG CAP (OMNICEF) PO SCH ×2 (08:37→21:07)
[2022-09-11] MEDS: LACTOBACILLUS ACIDOPHILUS CAP (BACID) PO SCH ×2 (08:37→17:46)
[2022-09-11] MEDS: predniSONE 5 MG TAB PO SCH (08:37)
[2022-09-11] MEDS: DOCUSATE SODIUM 100MG CAPSULE PO SCH ×2 (08:38→21:00)
[2022-09-11] MEDS: SODIUM CHLORIDE NASAL 0.65% SPRAY BTL (OCEAN) SCH ×3 (08:38→21:07)
[2022-09-11] MEDS: METOPROLOL SUCC *XL* 25MG TAB (TopROL *XL*) PO SCH (08:38)
[2022-09-11] MEDS: VITAMIN D 1,000 INTERNATIONAL UNITS TABLET PO SCH (08:38)
[2022-09-11] MEDS: REMEDY PHYTOPLEX Z-GUARD PASTE 113GM TUBE (FROM STOREROOM PRODUCT) TOP SCH ×3 (08:39→21:08)
[2022-09-11] MEDS: FLUTICASONE PROP 0.05% NASAL SPRAY 16 GM (FLONASE) NARES SCH ×2 (08:39→21:06)
[2022-09-11] MEDS ORDERED: VARIBAR NECTAR 40% w/v 240ML SUSP BTL As Ordered ONE (10:58)
[2022-09-11] MEDS ORDERED: VARIBAR PUDDING 40% w/v 230ML TUBE As Ordered ONE (10:58)
[2022-09-11] MEDS ORDERED: E-Z-PAQUE 96% w/w SUSP 176GM BTL As Ordered ONE (10:59)
[2022-09-11] MEDS ORDERED: BARIUM SULFATE 700 MG TABLET (E-Z-DISK) As Ordered ONE (10:59)
[2022-09-11] MEDS: LIDOCAINE 5% (LIDODERM) PATCH TD SCH (13:49)
[2022-09-11 14:00] VITALS: BP 125/82
[2022-09-11] MEDS: RIVAROXABAN 15MG TAB (XARELTO) PO SCH (17:46)
[2022-09-11 20:00] VITALS: BP 138/60
[2022-09-11] MEDS: LORATADINE 10 MG TAB PO SCH (21:07)
[2022-09-11] MEDS: ASPIRIN 81MG ENTERIC TABLET PO SCH (21:07)
[2022-09-11] MEDS: SENNA 8.6 MG TAB (SENOKOT) PO SCH (21:07)
[2022-09-11] MEDS: ATORVASTATIN 20 MG TAB PO SCH (21:07)
[2022-09-12] MEDS: DICLOFENAC EPOLAMINE 1.3% PATCH TOP SCH ×2 (05:29→17:18)
[2022-09-12] MEDS: FLUTICASONE PROP 0.05% NASAL SPRAY 16 GM (FLONASE) NARES SCH ×2 (08:52→20:13)
[2022-09-12] MEDS: MULTIVITAMINS/MINERALS THERAP 1 TAB PO SCH (08:53)
[2022-09-12] MEDS: DULoxetine 20MG CAP (CYMBALTA) PO SCH (08:53)
[2022-09-12] MEDS: allopurinoL 100 MG TAB PO SCH (08:53)
[2022-09-12] MEDS: LIDOCAINE 5% (LIDODERM) PATCH TD SCH (08:53)
[2022-09-12] MEDS: SODIUM CHLORIDE NASAL 0.65% SPRAY BTL (OCEAN) SCH ×3 (08:53→20:14)
[2022-09-12] MEDS: CEFDINIR 300 MG CAP (OMNICEF) PO SCH ×2 (08:54→20:11)
[2022-09-12] MEDS: VITAMIN D 1,000 INTERNATIONAL UNITS TABLET PO SCH (08:54)
[2022-09-12] MEDS: DOCUSATE SODIUM 100MG CAPSULE PO SCH ×2 (08:54→20:12)
[2022-09-12] MEDS: LACTOBACILLUS ACIDOPHILUS CAP (BACID) PO SCH ×2 (08:54→17:18)
[2022-09-12] MEDS: predniSONE 5 MG TAB PO SCH (08:54)
[2022-09-12] MEDS: PANTOPRAZOLE 40MG TAB (PROTONIX) PO SCH (08:54)
[2022-09-12] MEDS: guaiFENesin 200 MG TAB PO SCH ×3 (08:54→20:11)
[2022-09-12] MEDS: METOPROLOL SUCC *XL* 25MG TAB (TopROL *XL*) PO SCH (08:56)
[2022-09-12] MEDS: SALIVA SUBSTITUTE(MOUTHKOTE) BTL MT SCH ×4 (09:00→20:18)
[2022-09-12] MEDS: REMEDY PHYTOPLEX Z-GUARD PASTE 113GM TUBE (FROM STOREROOM PRODUCT) TOP SCH ×3 (09:00→20:13)
[2022-09-12] MEDS: COMBIVENT RESPIMAT 100-20MCG INHALER 4GM INH SCH ×3 (09:27→19:52)
[2022-09-12 09:50] LABS: BASO # 0.1 10^3/uL (0.0-0.2); BASO % 0.6 % (0.0-1.0); EOS # 0.2 10^3/uL (0.0-0.5); EOS % 1.9 % (0.0-3.0); HEMATOCRIT 35.9 % (36.0-47.0); HEMOGLOBIN 11.3 g/dl (12.0-15.5); LYMPH # 1.9 10^3/uL (1.5-5.0); LYMPH % 21.6 % (24.0-44.0); MEAN CORPUSCULAR HEMOGLOBIN 31.7 pg (27.0-33.0); MEAN CORPUSCULAR HGB CONC 31.5 g/dl (32.0-36.5); MEAN CORPUSCULAR VOLUME 100.6 fl (80.0-96.0); MONO # 0.5 10^3/uL (0.0-0.8); MONO % 6.3 % (2.0-8.0); NEUTROPHILS # 5.9 10^3/uL (1.5-8.5); PLATELET COUNT, AUTOMATED 293 10^3/uL (150-450); RED BLOOD COUNT 3.57 10^6/uL (4.00-5.40); WHITE BLOOD COUNT 8.6 10^3/uL (4.0-10.0)
[2022-09-12 10:24] LABS: BLOOD UREA NITROGEN 19 MG/DL (9-23); CALCIUM LEVEL 9.4 MG/DL (8.3-10.6); CARBON DIOXIDE LEVEL 24 MMOL/L (20-31); CHLORIDE LEVEL 102 MMOL/L (98-107); CREATININE FOR GFR 0.87 MG/DL (0.55-1.30); GLOMERULAR FILTRATION RATE > 60.0 (>32); GLUCOSE, FASTING 125 MG/DL (74-106); POTASSIUM SERUM 4.4 MMOL/L (3.5-5.1); SODIUM LEVEL 136 MMOL/L (136-145)
[2022-09-12] MEDS: oxyBUTYnin 5 MG TAB PO SCH ×2 (11:13→20:11)
[2022-09-12 14:00] VITALS: BP 129/85
[2022-09-12] MEDS: TORSEMIDE 20 MG TAB PO SCH (16:47)
[2022-09-12] MEDS: RIVAROXABAN 15MG TAB (XARELTO) PO SCH (16:47)
[2022-09-12 20:00] VITALS: BP 136/89
[2022-09-12] MEDS: ASPIRIN 81MG ENTERIC TABLET PO SCH (20:11)
[2022-09-12] MEDS: ATORVASTATIN 20 MG TAB PO SCH (20:11)
[2022-09-12] MEDS: LORATADINE 10 MG TAB PO SCH (20:11)
[2022-09-12] MEDS: SENNA 8.6 MG TAB (SENOKOT) PO SCH (20:12)
[2022-09-13] MEDS: DICLOFENAC EPOLAMINE 1.3% PATCH TOP SCH ×2 (05:08→16:44)
[2022-09-13 06:00] VITALS: BP 156/82
[2022-09-13] MEDS: REMEDY PHYTOPLEX Z-GUARD PASTE 113GM TUBE (FROM STOREROOM PRODUCT) TOP SCH ×3 (07:29→20:49)
[2022-09-13] MEDS: DOCUSATE SODIUM 100MG CAPSULE PO SCH ×2 (07:29→20:50)
[2022-09-13] MEDS: COMBIVENT RESPIMAT 100-20MCG INHALER 4GM INH SCH ×3 (08:00→18:12)
[2022-09-13] MEDS: allopurinoL 100 MG TAB PO SCH (09:28)
[2022-09-13] MEDS: DULoxetine 20MG CAP (CYMBALTA) PO SCH (09:28)
[2022-09-13] MEDS: MULTIVITAMINS/MINERALS THERAP 1 TAB PO SCH (09:28)
[2022-09-13] MEDS: TORSEMIDE 20 MG TAB PO SCH (09:29)
[2022-09-13] MEDS: FLUTICASONE PROP 0.05% NASAL SPRAY 16 GM (FLONASE) NARES SCH ×2 (09:29→20:47)
[2022-09-13] MEDS: SODIUM CHLORIDE NASAL 0.65% SPRAY BTL (OCEAN) SCH ×3 (09:29→20:48)
[2022-09-13] MEDS: VITAMIN D 1,000 INTERNATIONAL UNITS TABLET PO SCH (09:29)
[2022-09-13] MEDS: LIDOCAINE 5% (LIDODERM) PATCH TD SCH (09:29)
[2022-09-13] MEDS: METOPROLOL SUCC *XL* 25MG TAB (TopROL *XL*) PO SCH (09:29)
[2022-09-13] MEDS: predniSONE 5 MG TAB PO SCH (09:29)
[2022-09-13] MEDS: PANTOPRAZOLE 40MG TAB (PROTONIX) PO SCH (09:29)
[2022-09-13] MEDS: guaiFENesin 200 MG TAB PO SCH ×3 (09:29→20:48)
[2022-09-13] MEDS: SALIVA SUBSTITUTE(MOUTHKOTE) BTL MT SCH ×4 (09:30→20:47)
[2022-09-13] MEDS: LACTOBACILLUS ACIDOPHILUS CAP (BACID) PO SCH ×2 (09:31→16:43)
[2022-09-13 14:00] VITALS: BP 125/87
[2022-09-13] MEDS: RIVAROXABAN 15MG TAB (XARELTO) PO SCH (16:43)
[2022-09-13 20:00] VITALS: BP 133/76
[2022-09-13] MEDS: oxyBUTYnin 5 MG TAB PO SCH (20:48)
[2022-09-13] MEDS: LORATADINE 10 MG TAB PO SCH (20:48)
[2022-09-13] MEDS: ATORVASTATIN 20 MG TAB PO SCH (20:48)
[2022-09-13] MEDS: ASPIRIN 81MG ENTERIC TABLET PO SCH (20:48)
[2022-09-13] MEDS: SENNA 8.6 MG TAB (SENOKOT) PO SCH (20:49)
[2022-09-13] MEDS: ACETAMINOPHEN TAB 650MG DOSE (2X325MG) PO PRN (20:49)
[2022-09-14] MEDS: DICLOFENAC EPOLAMINE 1.3% PATCH TOP SCH ×2 (05:35→20:47)
[2022-09-14 06:00] VITALS: BP 124/86
[2022-09-14] MEDS: COMBIVENT RESPIMAT 100-20MCG INHALER 4GM INH SCH ×3 (06:49→19:19)
[2022-09-14 07:09] LABS: BASO # 0.1 10^3/uL (0.0-0.2); BASO % 0.6 % (0.0-1.0); EOS # 0.1 10^3/uL (0.0-0.5); EOS % 1.7 % (0.0-3.0); HEMATOCRIT 34.3 % (36.0-47.0); HEMOGLOBIN 10.9 g/dl (12.0-15.5); MEAN CORPUSCULAR HEMOGLOBIN 31.9 pg (27.0-33.0); MEAN CORPUSCULAR HGB CONC 31.8 g/dl (32.0-36.5); MEAN CORPUSCULAR VOLUME 100.3 fl (80.0-96.0); MONO # 0.7 10^3/uL (0.0-0.8); MONO % 8.3 % (2.0-8.0); NEUTROPHILS # 5.3 10^3/uL (1.5-8.5); PLATELET COUNT, AUTOMATED 271 10^3/uL (150-450); RED BLOOD COUNT 3.42 10^6/uL (4.00-5.40); WHITE BLOOD COUNT 8.1 10^3/uL (4.0-10.0)
[2022-09-14 07:39] LABS: CALCIUM LEVEL 8.9 MG/DL (8.3-10.6); CREATININE FOR GFR 1.02 MG/DL (0.55-1.30); POTASSIUM SERUM 3.8 MMOL/L (3.5-5.1)
[2022-09-14] MEDS: DOCUSATE SODIUM 100MG CAPSULE PO SCH ×2 (09:39→20:46)
[2022-09-14] MEDS: LIDOCAINE 5% (LIDODERM) PATCH TD SCH (09:39)
[2022-09-14] MEDS: PANTOPRAZOLE 40MG TAB (PROTONIX) PO SCH (09:39)
[2022-09-14] MEDS: allopurinoL 100 MG TAB PO SCH (09:39)
[2022-09-14] MEDS: predniSONE 5 MG TAB PO SCH (09:40)
[2022-09-14] MEDS: VITAMIN D 1,000 INTERNATIONAL UNITS TABLET PO SCH (09:40)
[2022-09-14] MEDS: TORSEMIDE 20 MG TAB PO SCH (09:40)
[2022-09-14] MEDS: MULTIVITAMINS/MINERALS THERAP 1 TAB PO SCH (09:40)
[2022-09-14] MEDS: guaiFENesin 200 MG TAB PO SCH ×3 (09:40→21:00)
[2022-09-14] MEDS: METOPROLOL SUCC *XL* 25MG TAB (TopROL *XL*) PO SCH (09:41)
[2022-09-14] MEDS: DULoxetine 20MG CAP (CYMBALTA) PO SCH (09:41)
[2022-09-14] MEDS: FLUTICASONE PROP 0.05% NASAL SPRAY 16 GM (FLONASE) NARES SCH ×2 (09:45→20:47)
[2022-09-14] MEDS: SODIUM CHLORIDE NASAL 0.65% SPRAY BTL (OCEAN) SCH ×3 (09:45→20:47)
[2022-09-14] MEDS: REMEDY PHYTOPLEX Z-GUARD PASTE 113GM TUBE (FROM STOREROOM PRODUCT) TOP SCH ×3 (09:45→20:48)
[2022-09-14] MEDS: LACTOBACILLUS ACIDOPHILUS CAP (BACID) PO SCH ×2 (09:53→19:22)
[2022-09-14] MEDS: SALIVA SUBSTITUTE(MOUTHKOTE) BTL MT SCH ×4 (09:54→20:47)
[2022-09-14 14:00] VITALS: BP 124/72
[2022-09-14] MEDS: RIVAROXABAN 15MG TAB (XARELTO) PO SCH (19:22)
[2022-09-14] MEDS: SENNA 8.6 MG TAB (SENOKOT) PO SCH (20:46)
[2022-09-14] MEDS: oxyBUTYnin 5 MG TAB PO SCH (20:46)
[2022-09-14] MEDS: ATORVASTATIN 20 MG TAB PO SCH (20:46)
[2022-09-14] MEDS: ASPIRIN 81MG ENTERIC TABLET PO SCH (20:46)
[2022-09-14] MEDS: LORATADINE 10 MG TAB PO SCH (20:46)
[2022-09-14 21:28] VITALS: BP 124/98
[2022-09-15 05:00] VITALS: BP 127/76
[2022-09-15] MEDS: DICLOFENAC EPOLAMINE 1.3% PATCH TOP SCH ×2 (05:22→17:12)
[2022-09-15] MEDS: COMBIVENT RESPIMAT 100-20MCG INHALER 4GM INH SCH ×3 (08:00→19:52)
[2022-09-15] MEDS: MULTIVITAMINS/MINERALS THERAP 1 TAB PO SCH (08:39)
[2022-09-15] MEDS: LACTOBACILLUS ACIDOPHILUS CAP (BACID) PO SCH ×2 (08:39→17:12)
[2022-09-15] MEDS: DOCUSATE SODIUM 100MG CAPSULE PO SCH ×2 (08:39→22:09)
[2022-09-15] MEDS: VITAMIN D 1,000 INTERNATIONAL UNITS TABLET PO SCH (08:39)
[2022-09-15] MEDS: predniSONE 5 MG TAB PO SCH (08:40)
[2022-09-15] MEDS: PANTOPRAZOLE 40MG TAB (PROTONIX) PO SCH (08:40)
[2022-09-15] MEDS: DULoxetine 20MG CAP (CYMBALTA) PO SCH (08:40)
[2022-09-15] MEDS: TORSEMIDE 20 MG TAB PO SCH (08:40)
[2022-09-15] MEDS: guaiFENesin 200 MG TAB PO SCH ×3 (08:40→22:08)
[2022-09-15] MEDS: allopurinoL 100 MG TAB PO SCH (08:40)
[2022-09-15] MEDS: LIDOCAINE 5% (LIDODERM) PATCH TD SCH (08:40)
[2022-09-15] MEDS: METOPROLOL SUCC *XL* 25MG TAB (TopROL *XL*) PO SCH (08:41)
[2022-09-15] MEDS: SALIVA SUBSTITUTE(MOUTHKOTE) BTL MT SCH ×4 (08:42→22:10)
[2022-09-15] MEDS: FLUTICASONE PROP 0.05% NASAL SPRAY 16 GM (FLONASE) NARES SCH ×2 (08:42→22:10)
[2022-09-15] MEDS: SODIUM CHLORIDE NASAL 0.65% SPRAY BTL (OCEAN) SCH ×3 (08:42→22:10)
[2022-09-15] MEDS: REMEDY PHYTOPLEX Z-GUARD PASTE 113GM TUBE (FROM STOREROOM PRODUCT) TOP SCH ×3 (08:43→22:10)
[2022-09-15 14:00] VITALS: BP 133/80
[2022-09-15] MEDS: RIVAROXABAN 15MG TAB (XARELTO) PO SCH (17:12)
[2022-09-15] MEDS: ONDANSETRON 4MG TAB PO PRN (18:31)
[2022-09-15 19:22] VITALS: BP 109/76
[2022-09-15 20:00] VITALS: BP 121/78
[2022-09-15] MEDS: ATORVASTATIN 20 MG TAB PO SCH (22:09)
[2022-09-15] MEDS: SENNA 8.6 MG TAB (SENOKOT) PO SCH (22:09)
[2022-09-15] MEDS: LORATADINE 10 MG TAB PO SCH (22:09)
[2022-09-15] MEDS: oxyBUTYnin 5 MG TAB PO SCH (22:09)
[2022-09-15] MEDS: ASPIRIN 81MG ENTERIC TABLET PO SCH (22:09)
[2022-09-16 05:06] VITALS: BP 109/70
[2022-09-16] MEDS: DICLOFENAC EPOLAMINE 1.3% PATCH TOP SCH ×2 (05:12→17:23)
[2022-09-16] MEDS: COMBIVENT RESPIMAT 100-20MCG INHALER 4GM INH SCH ×3 (07:31→20:00)
[2022-09-16] MEDS: LIDOCAINE 5% (LIDODERM) PATCH TD SCH (08:19)
[2022-09-16] MEDS: MULTIVITAMINS/MINERALS THERAP 1 TAB PO SCH (08:19)
[2022-09-16] MEDS: allopurinoL 100 MG TAB PO SCH (08:19)
[2022-09-16] MEDS: TORSEMIDE 20 MG TAB PO SCH (08:19)
[2022-09-16] MEDS: DOCUSATE SODIUM 100MG CAPSULE PO SCH ×2 (08:19→21:41)
[2022-09-16] MEDS: DULoxetine 20MG CAP (CYMBALTA) PO SCH (08:19)
[2022-09-16] MEDS: METOPROLOL SUCC *XL* 25MG TAB (TopROL *XL*) PO SCH (08:19)
[2022-09-16] MEDS: VITAMIN D 1,000 INTERNATIONAL UNITS TABLET PO SCH (08:19)
[2022-09-16] MEDS: predniSONE 5 MG TAB PO SCH (08:19)
[2022-09-16] MEDS: PANTOPRAZOLE 40MG TAB (PROTONIX) PO SCH (08:19)
[2022-09-16] MEDS: guaiFENesin 200 MG TAB PO SCH ×3 (08:19→21:41)
[2022-09-16] MEDS: LACTOBACILLUS ACIDOPHILUS CAP (BACID) PO SCH ×2 (08:19→17:23)
[2022-09-16] MEDS: FLUTICASONE PROP 0.05% NASAL SPRAY 16 GM (FLONASE) NARES SCH ×2 (08:20→21:42)
[2022-09-16] MEDS: SALIVA SUBSTITUTE(MOUTHKOTE) BTL MT SCH ×4 (08:20→21:42)
[2022-09-16] MEDS: REMEDY PHYTOPLEX Z-GUARD PASTE 113GM TUBE (FROM STOREROOM PRODUCT) TOP SCH ×3 (08:20→21:42)
[2022-09-16] MEDS: SODIUM CHLORIDE NASAL 0.65% SPRAY BTL (OCEAN) SCH ×3 (08:20→21:42)
[2022-09-16 14:00] VITALS: BP 115/62
[2022-09-16] MEDS: RIVAROXABAN 15MG TAB (XARELTO) PO SCH (17:23)
[2022-09-16 20:00] VITALS: BP 105/73
[2022-09-16] MEDS: ASPIRIN 81MG ENTERIC TABLET PO SCH (21:41)
[2022-09-16] MEDS: oxyBUTYnin 5 MG TAB PO SCH (21:41)
[2022-09-16] MEDS: SENNA 8.6 MG TAB (SENOKOT) PO SCH (21:41)
[2022-09-16] MEDS: ATORVASTATIN 20 MG TAB PO SCH (21:41)
[2022-09-16] MEDS: LORATADINE 10 MG TAB PO SCH (21:41)
[2022-09-17] MEDS: DICLOFENAC EPOLAMINE 1.3% PATCH TOP SCH ×2 (05:26→17:16)
[2022-09-17 06:00] VITALS: BP 140/85
[2022-09-17] MEDS: COMBIVENT RESPIMAT 100-20MCG INHALER 4GM INH SCH ×3 (06:10→20:53)
[2022-09-17] MEDS: LACTOBACILLUS ACIDOPHILUS CAP (BACID) PO SCH ×3 (08:00→17:16)
[2022-09-17] MEDS: SALIVA SUBSTITUTE(MOUTHKOTE) BTL MT SCH ×4 (09:00→20:19)
[2022-09-17 10:04] LABS: CALCIUM LEVEL 8.9 MG/DL (8.3-10.6); CREATININE FOR GFR 1.05 MG/DL (0.55-1.30); GLOMERULAR FILTRATION RATE 53.2 (>32); POTASSIUM SERUM 4.2 MMOL/L (3.5-5.1)
[2022-09-17 10:15] LABS: BASO % 0.4 % (0.0-1.0); EOS # 0.2 10^3/uL (0.0-0.5); EOS % 1.5 % (0.0-3.0); HEMATOCRIT 35.8 % (36.0-47.0); HEMOGLOBIN 11.3 g/dl (12.0-15.5); LYMPH # 1.6 10^3/uL (1.5-5.0); LYMPH % 16.5 % (24.0-44.0); MEAN CORPUSCULAR HEMOGLOBIN 31.2 pg (27.0-33.0); MEAN CORPUSCULAR HGB CONC 31.6 g/dl (32.0-36.5); MEAN CORPUSCULAR VOLUME 98.9 fl (80.0-96.0); MONO # 0.6 10^3/uL (0.0-0.8); MONO % 6.4 % (2.0-8.0); NEUTROPHILS # 7.3 10^3/uL (1.5-8.5); NEUTROPHILS % 74.8 % (36.0-66.0); PLATELET COUNT, AUTOMATED 291 10^3/uL (150-450); RED BLOOD COUNT 3.62 10^6/uL (4.00-5.40); WHITE BLOOD COUNT 9.8 10^3/uL (4.0-10.0)
[2022-09-17] MEDS: DULoxetine 20MG CAP (CYMBALTA) PO SCH (11:29)
[2022-09-17] MEDS: MULTIVITAMINS/MINERALS THERAP 1 TAB PO SCH (11:29)
[2022-09-17] MEDS: LIDOCAINE 5% (LIDODERM) PATCH TD SCH (11:29)
[2022-09-17] MEDS: VITAMIN D 1,000 INTERNATIONAL UNITS TABLET PO SCH (11:30)
[2022-09-17] MEDS: allopurinoL 100 MG TAB PO SCH (11:30)
[2022-09-17] MEDS: PANTOPRAZOLE 40MG TAB (PROTONIX) PO SCH (11:30)
[2022-09-17] MEDS: predniSONE 5 MG TAB PO SCH (11:30)
[2022-09-17] MEDS: DOCUSATE SODIUM 100MG CAPSULE PO SCH ×2 (11:30→20:19)
[2022-09-17] MEDS: guaiFENesin 200 MG TAB PO SCH ×3 (11:31→20:21)
[2022-09-17] MEDS: METOPROLOL SUCC *XL* 25MG TAB (TopROL *XL*) PO SCH (11:31)
[2022-09-17] MEDS: TORSEMIDE 20 MG TAB PO SCH (11:32)
[2022-09-17] MEDS: SODIUM CHLORIDE NASAL 0.65% SPRAY BTL (OCEAN) SCH ×3 (11:32→20:20)
[2022-09-17] MEDS: REMEDY PHYTOPLEX Z-GUARD PASTE 113GM TUBE (FROM STOREROOM PRODUCT) TOP SCH ×3 (11:33→20:20)
[2022-09-17] MEDS: FLUTICASONE PROP 0.05% NASAL SPRAY 16 GM (FLONASE) NARES SCH ×2 (11:33→20:20)
[2022-09-17 14:00] VITALS: BP 126/86
[2022-09-17] MEDS: LISINOPRIL *2.5 MG* TAB PO SCH (17:15)
[2022-09-17] MEDS: RIVAROXABAN 15MG TAB (XARELTO) PO SCH (17:16)
[2022-09-17 19:55] VITALS: BP 122/82
[2022-09-17] MEDS: LORATADINE 10 MG TAB PO SCH (20:19)
[2022-09-17] MEDS: SENNA 8.6 MG TAB (SENOKOT) PO SCH (20:19)
[2022-09-17] MEDS: ATORVASTATIN 20 MG TAB PO SCH (20:19)
[2022-09-17] MEDS: oxyBUTYnin 5 MG TAB PO SCH (20:19)
[2022-09-17] MEDS: ASPIRIN 81MG ENTERIC TABLET PO SCH (20:19)
[2022-09-17 20:56] VITALS: O2SAT 98
[2022-09-18 05:36] VITALS: BP 114/78
[2022-09-18] MEDS: DICLOFENAC EPOLAMINE 1.3% PATCH TOP SCH ×2 (05:58→17:25)
[2022-09-18] MEDS: COMBIVENT RESPIMAT 100-20MCG INHALER 4GM INH SCH ×3 (08:00→20:22)
[2022-09-18] MEDS: LIDOCAINE 5% (LIDODERM) PATCH TD SCH (09:00)
[2022-09-18] MEDS: guaiFENesin 200 MG TAB PO SCH ×3 (09:58→21:42)
[2022-09-18] MEDS: predniSONE 5 MG TAB PO SCH (09:58)
[2022-09-18] MEDS: MULTIVITAMINS/MINERALS THERAP 1 TAB PO SCH (09:58)
[2022-09-18] MEDS: PANTOPRAZOLE 40MG TAB (PROTONIX) PO SCH (09:58)
[2022-09-18] MEDS: TORSEMIDE 20 MG TAB PO SCH (09:59)
[2022-09-18] MEDS: DULoxetine 20MG CAP (CYMBALTA) PO SCH (09:59)
[2022-09-18] MEDS: LISINOPRIL *2.5 MG* TAB PO SCH (09:59)
[2022-09-18] MEDS: DOCUSATE SODIUM 100MG CAPSULE PO SCH ×2 (09:59→21:42)
[2022-09-18] MEDS: VITAMIN D 1,000 INTERNATIONAL UNITS TABLET PO SCH (09:59)
[2022-09-18] MEDS: allopurinoL 100 MG TAB PO SCH (10:01)
[2022-09-18] MEDS: METOPROLOL SUCC *XL* 25MG TAB (TopROL *XL*) PO SCH (10:01)
[2022-09-18] MEDS: FLUTICASONE PROP 0.05% NASAL SPRAY 16 GM (FLONASE) NARES SCH ×2 (10:02→21:00)
[2022-09-18] MEDS: SALIVA SUBSTITUTE(MOUTHKOTE) BTL MT SCH ×4 (10:02→21:42)
[2022-09-18] MEDS: SODIUM CHLORIDE NASAL 0.65% SPRAY BTL (OCEAN) SCH ×3 (10:02→21:00)
[2022-09-18] MEDS: REMEDY PHYTOPLEX Z-GUARD PASTE 113GM TUBE (FROM STOREROOM PRODUCT) TOP SCH ×3 (10:04→21:42)
[2022-09-18 14:00] VITALS: BP 106/75
[2022-09-18] MEDS: LACTOBACILLUS ACIDOPHILUS CAP (BACID) PO SCH (17:25)
[2022-09-18] MEDS: RIVAROXABAN 15MG TAB (XARELTO) PO SCH (17:25)
[2022-09-18 20:00] VITALS: BP 130/83
[2022-09-18] MEDS: ATORVASTATIN 20 MG TAB PO SCH (21:42)
[2022-09-18] MEDS: LORATADINE 10 MG TAB PO SCH (21:42)
[2022-09-18] MEDS: oxyBUTYnin 5 MG TAB PO SCH (21:42)
[2022-09-18] MEDS: SENNA 8.6 MG TAB (SENOKOT) PO SCH (21:42)
[2022-09-18] MEDS: ASPIRIN 81MG ENTERIC TABLET PO SCH (21:42)
[2022-09-19] MEDS: DICLOFENAC EPOLAMINE 1.3% PATCH TOP SCH ×2 (05:36→18:09)
[2022-09-19 06:00] VITALS: BP 123/85
[2022-09-19] MEDS: COMBIVENT RESPIMAT 100-20MCG INHALER 4GM INH SCH ×3 (08:00→19:24)
[2022-09-19] MEDS: LIDOCAINE 5% (LIDODERM) PATCH TD SCH (09:44)
[2022-09-19] MEDS: PANTOPRAZOLE 40MG TAB (PROTONIX) PO SCH (09:45)
[2022-09-19] MEDS: TORSEMIDE 20 MG TAB PO SCH (09:45)
[2022-09-19] MEDS: DULoxetine 20MG CAP (CYMBALTA) PO SCH (09:45)
[2022-09-19] MEDS: METOPROLOL SUCC *XL* 25MG TAB (TopROL *XL*) PO SCH (09:45)
[2022-09-19] MEDS: DOCUSATE SODIUM 100MG CAPSULE PO SCH ×2 (09:45→19:55)
[2022-09-19] MEDS: predniSONE 5 MG TAB PO SCH (09:45)
[2022-09-19] MEDS: VITAMIN D 1,000 INTERNATIONAL UNITS TABLET PO SCH (09:45)
[2022-09-19] MEDS: allopurinoL 100 MG TAB PO SCH (09:45)
[2022-09-19] MEDS: guaiFENesin 200 MG TAB PO SCH ×3 (09:46→19:54)
[2022-09-19] MEDS: LACTOBACILLUS ACIDOPHILUS CAP (BACID) PO SCH ×2 (09:46→18:08)
[2022-09-19] MEDS: REMEDY PHYTOPLEX Z-GUARD PASTE 113GM TUBE (FROM STOREROOM PRODUCT) TOP SCH ×3 (09:46→19:56)
[2022-09-19] MEDS: SALIVA SUBSTITUTE(MOUTHKOTE) BTL MT SCH ×4 (09:46→19:56)
[2022-09-19] MEDS: MULTIVITAMINS/MINERALS THERAP 1 TAB PO SCH (09:46)
[2022-09-19] MEDS: FLUTICASONE PROP 0.05% NASAL SPRAY 16 GM (FLONASE) NARES SCH ×2 (09:46→19:56)
[2022-09-19] MEDS: SODIUM CHLORIDE NASAL 0.65% SPRAY BTL (OCEAN) SCH ×3 (09:47→19:56)
[2022-09-19 10:04] LABS: BASO # 0.1 10^3/uL (0.0-0.2); BASO % 0.4 % (0.0-1.0); EOS # 0.1 10^3/uL (0.0-0.5); EOS % 0.9 % (0.0-3.0); HEMATOCRIT 36.3 % (36.0-47.0); HEMOGLOBIN 11.4 g/dl (12.0-15.5); LYMPH # 1.3 10^3/uL (1.5-5.0); LYMPH % 10.4 % (24.0-44.0); MEAN CORPUSCULAR HEMOGLOBIN 31.3 pg (27.0-33.0); MEAN CORPUSCULAR HGB CONC 31.4 g/dl (32.0-36.5); MEAN CORPUSCULAR VOLUME 99.7 fl (80.0-96.0); MONO % 7.8 % (2.0-8.0); PLATELET COUNT, AUTOMATED 268 10^3/uL (150-450); RED BLOOD COUNT 3.64 10^6/uL (4.00-5.40); WHITE BLOOD COUNT 12.4 10^3/uL (4.0-10.0)
[2022-09-19 10:30] LABS: CALCIUM LEVEL 9.2 MG/DL (8.3-10.6); CREATININE FOR GFR 0.97 MG/DL (0.55-1.30); GLOMERULAR FILTRATION RATE 58.2 (>32); POTASSIUM SERUM 4.5 MMOL/L (3.5-5.1)
[2022-09-19] MEDS: LISINOPRIL *2.5 MG* TAB PO SCH (12:27)
[2022-09-19 14:02] VITALS: BP 122/72
[2022-09-19] MEDS: RIVAROXABAN 15MG TAB (XARELTO) PO SCH (18:08)
[2022-09-19 19:19] VITALS: BP 104/70
[2022-09-19] MEDS: SENNA 8.6 MG TAB (SENOKOT) PO SCH (19:55)
[2022-09-19] MEDS: PREPARATION H SUPP (HEMORRHOID) PR SCH (19:55)
[2022-09-19] MEDS: ASPIRIN 81MG ENTERIC TABLET PO SCH (19:55)
[2022-09-19] MEDS: oxyBUTYnin 5 MG TAB PO SCH (19:55)
[2022-09-19] MEDS: ATORVASTATIN 20 MG TAB PO SCH (19:55)
[2022-09-19] MEDS: LORATADINE 10 MG TAB PO SCH (19:55)
[2022-09-19] MEDS ORDERED: CALCIUM CARBONATE 500 MG CHEW U/D PO PRN (23:55)
[2022-09-20 05:23] VITALS: BP 115/79
[2022-09-20] MEDS: COMBIVENT RESPIMAT 100-20MCG INHALER 4GM INH SCH ×3 (06:12→20:41)
[2022-09-20 06:13] LABS: BASO % 0.4 % (0.0-1.0); EOS # 0.2 10^3/uL (0.0-0.5); EOS % 1.7 % (0.0-3.0); HEMATOCRIT 34.1 % (36.0-47.0); LYMPH # 2.1 10^3/uL (1.5-5.0); LYMPH % 21.1 % (24.0-44.0); MEAN CORPUSCULAR HEMOGLOBIN 31.9 pg (27.0-33.0); MEAN CORPUSCULAR HGB CONC 32.3 g/dl (32.0-36.5); MEAN CORPUSCULAR VOLUME 98.8 fl (80.0-96.0); MONO # 0.8 10^3/uL (0.0-0.8); MONO % 7.8 % (2.0-8.0); NEUTROPHILS # 6.7 10^3/uL (1.5-8.5); NEUTROPHILS % 68.5 % (36.0-66.0); PLATELET COUNT, AUTOMATED 248 10^3/uL (150-450); RED BLOOD COUNT 3.45 10^6/uL (4.00-5.40); WHITE BLOOD COUNT 9.8 10^3/uL (4.0-10.0)
[2022-09-20] MEDS: DICLOFENAC EPOLAMINE 1.3% PATCH TOP SCH ×2 (06:33→17:16)
[2022-09-20] MEDS: METOPROLOL SUCC *XL* 25MG TAB (TopROL *XL*) PO SCH (10:07)
[2022-09-20] MEDS: DOCUSATE SODIUM 100MG CAPSULE PO SCH ×2 (10:07→20:55)
[2022-09-20] MEDS: DULoxetine 20MG CAP (CYMBALTA) PO SCH (10:08)
[2022-09-20] MEDS: MULTIVITAMINS/MINERALS THERAP 1 TAB PO SCH (10:08)
[2022-09-20] MEDS: TORSEMIDE 20 MG TAB PO SCH (10:08)
[2022-09-20] MEDS: VITAMIN D 1,000 INTERNATIONAL UNITS TABLET PO SCH (10:08)
[2022-09-20] MEDS: LISINOPRIL *2.5 MG* TAB PO SCH (10:08)
[2022-09-20] MEDS: allopurinoL 100 MG TAB PO SCH (10:08)
[2022-09-20] MEDS: SALIVA SUBSTITUTE(MOUTHKOTE) BTL MT SCH ×4 (10:09→20:53)
[2022-09-20] MEDS: PANTOPRAZOLE 40MG TAB (PROTONIX) PO SCH (10:09)
[2022-09-20] MEDS: LIDOCAINE 5% (LIDODERM) PATCH TD SCH (10:09)
[2022-09-20] MEDS: guaiFENesin 200 MG TAB PO SCH ×3 (10:09→20:54)
[2022-09-20] MEDS: PREPARATION H SUPP (HEMORRHOID) PR SCH ×2 (10:09→20:55)
[2022-09-20] MEDS: LACTOBACILLUS ACIDOPHILUS CAP (BACID) PO SCH ×2 (10:09→17:16)
[2022-09-20] MEDS: REMEDY PHYTOPLEX Z-GUARD PASTE 113GM TUBE (FROM STOREROOM PRODUCT) TOP SCH ×3 (10:10→20:54)
[2022-09-20] MEDS: SODIUM CHLORIDE NASAL 0.65% SPRAY BTL (OCEAN) SCH ×3 (10:10→20:53)
[2022-09-20] MEDS: FLUTICASONE PROP 0.05% NASAL SPRAY 16 GM (FLONASE) NARES SCH ×2 (10:10→20:53)
[2022-09-20 14:00] VITALS: BP 120/67
[2022-09-20] MEDS: RIVAROXABAN 15MG TAB (XARELTO) PO SCH (17:16)
[2022-09-20 19:39] VITALS: BP 103/60
[2022-09-20] MEDS: ATORVASTATIN 20 MG TAB PO SCH (20:54)
[2022-09-20] MEDS: oxyBUTYnin 5 MG TAB PO SCH (20:55)
[2022-09-20] MEDS: SENNA 8.6 MG TAB (SENOKOT) PO SCH (20:55)
[2022-09-20] MEDS: LORATADINE 10 MG TAB PO SCH (20:55)
[2022-09-20] MEDS: ASPIRIN 81MG ENTERIC TABLET PO SCH (20:55)
[2022-09-21 05:10] VITALS: BP 111/63
[2022-09-21] MEDS: DICLOFENAC EPOLAMINE 1.3% PATCH TOP SCH ×2 (06:39→18:43)
[2022-09-21] MEDS: COMBIVENT RESPIMAT 100-20MCG INHALER 4GM INH SCH ×3 (07:45→19:19)
[2022-09-21] MEDS: TORSEMIDE 20 MG TAB PO SCH (09:00)
[2022-09-21] MEDS: METOPROLOL SUCC *XL* 25MG TAB (TopROL *XL*) PO SCH (09:00)
[2022-09-21] MEDS: LISINOPRIL *2.5 MG* TAB PO SCH (09:00)
[2022-09-21] MEDS: LIDOCAINE 5% (LIDODERM) PATCH TD SCH (09:15)
[2022-09-21] MEDS: DOCUSATE SODIUM 100MG CAPSULE PO SCH ×2 (09:16→20:41)
[2022-09-21] MEDS: DULoxetine 20MG CAP (CYMBALTA) PO SCH (09:16)
[2022-09-21] MEDS: VITAMIN D 1,000 INTERNATIONAL UNITS TABLET PO SCH (09:16)
[2022-09-21] MEDS: guaiFENesin 200 MG TAB PO SCH ×3 (09:16→20:41)
[2022-09-21] MEDS: MULTIVITAMINS/MINERALS THERAP 1 TAB PO SCH (09:16)
[2022-09-21] MEDS: PANTOPRAZOLE 40MG TAB (PROTONIX) PO SCH (09:16)
[2022-09-21] MEDS: FLUTICASONE PROP 0.05% NASAL SPRAY 16 GM (FLONASE) NARES SCH ×2 (09:17→20:41)
[2022-09-21] MEDS: PREPARATION H SUPP (HEMORRHOID) PR SCH ×2 (09:17→20:42)
[2022-09-21] MEDS: allopurinoL 100 MG TAB PO SCH (09:17)
[2022-09-21] MEDS: SODIUM CHLORIDE NASAL 0.65% SPRAY BTL (OCEAN) SCH ×3 (09:17→20:41)
[2022-09-21] MEDS: SALIVA SUBSTITUTE(MOUTHKOTE) BTL MT SCH ×4 (09:18→20:41)
[2022-09-21] MEDS: LACTOBACILLUS ACIDOPHILUS CAP (BACID) PO SCH ×2 (09:18→18:42)
[2022-09-21] MEDS: REMEDY PHYTOPLEX Z-GUARD PASTE 113GM TUBE (FROM STOREROOM PRODUCT) TOP SCH ×3 (09:18→20:42)
[2022-09-21 11:46] LABS: BASO # 0.1 10^3/uL (0.0-0.2); BASO % 0.6 % (0.0-1.0); EOS # 0.2 10^3/uL (0.0-0.5); EOS % 1.8 % (0.0-3.0); HEMATOCRIT 36.7 % (36.0-47.0); HEMOGLOBIN 11.8 g/dl (12.0-15.5); LYMPH # 1.7 10^3/uL (1.5-5.0); LYMPH % 18.1 % (24.0-44.0); MEAN CORPUSCULAR HEMOGLOBIN 31.6 pg (27.0-33.0); MEAN CORPUSCULAR HGB CONC 32.2 g/dl (32.0-36.5); MEAN CORPUSCULAR VOLUME 98.1 fl (80.0-96.0); MONO # 0.6 10^3/uL (0.0-0.8); MONO % 6.5 % (2.0-8.0); NEUTROPHILS # 6.8 10^3/uL (1.5-8.5); NEUTROPHILS % 72.6 % (36.0-66.0); PLATELET COUNT, AUTOMATED 265 10^3/uL (150-450); RED BLOOD COUNT 3.74 10^6/uL (4.00-5.40); WHITE BLOOD COUNT 9.4 10^3/uL (4.0-10.0)
[2022-09-21 12:15] LABS: CALCIUM LEVEL 9.6 MG/DL (8.3-10.6); CREATININE FOR GFR 1.06 MG/DL (0.55-1.30); GLOMERULAR FILTRATION RATE 52.6 (>32); POTASSIUM SERUM 4.1 MMOL/L (3.5-5.1)
[2022-09-21] MEDS: LevoFLOXacin 250 MG TABLET PO SCH (12:30)
[2022-09-21 14:00] VITALS: BP 117/75
[2022-09-21] MEDS: RIVAROXABAN 15MG TAB (XARELTO) PO SCH (18:42)
[2022-09-21] MEDS: ACETAMINOPHEN TAB 650MG DOSE (2X325MG) PO PRN (18:50)
[2022-09-21 19:53] VITALS: BP 110/72
[2022-09-21] MEDS: ASPIRIN 81MG ENTERIC TABLET PO SCH (20:40)
[2022-09-21] MEDS: oxyBUTYnin 5 MG TAB PO SCH (20:40)
[2022-09-21] MEDS: SENNA 8.6 MG TAB (SENOKOT) PO SCH (20:40)
[2022-09-21] MEDS: ATORVASTATIN 20 MG TAB PO SCH (20:40)
[2022-09-21] MEDS: LORATADINE 10 MG TAB PO SCH (20:41)
[2022-09-22] MEDS: COMBIVENT RESPIMAT 100-20MCG INHALER 4GM INH SCH ×3 (06:08→18:28)
[2022-09-22] MEDS: DICLOFENAC EPOLAMINE 1.3% PATCH TOP SCH ×2 (06:12→18:00)
[2022-09-22] MEDS: LevoFLOXacin 250 MG TABLET PO SCH (06:12)
[2022-09-22 06:14] VITALS: BP 122/86
[2022-09-22] MEDS: DOCUSATE SODIUM 100MG CAPSULE PO SCH ×2 (09:21→20:55)
[2022-09-22] MEDS: LIDOCAINE 5% (LIDODERM) PATCH TD SCH (09:21)
[2022-09-22] MEDS: LACTOBACILLUS ACIDOPHILUS CAP (BACID) PO SCH ×2 (09:21→17:58)
[2022-09-22] MEDS: MULTIVITAMINS/MINERALS THERAP 1 TAB PO SCH (09:22)
[2022-09-22] MEDS: VITAMIN D 1,000 INTERNATIONAL UNITS TABLET PO SCH (09:22)
[2022-09-22] MEDS: DULoxetine 20MG CAP (CYMBALTA) PO SCH (09:22)
[2022-09-22] MEDS: allopurinoL 100 MG TAB PO SCH (09:22)
[2022-09-22] MEDS: guaiFENesin 200 MG TAB PO SCH ×3 (09:22→20:54)
[2022-09-22] MEDS: METOPROLOL SUCC *XL* 25MG TAB (TopROL *XL*) PO SCH (09:23)
[2022-09-22] MEDS: PANTOPRAZOLE 40MG TAB (PROTONIX) PO SCH (09:23)
[2022-09-22] MEDS: LISINOPRIL *2.5 MG* TAB PO SCH (09:23)
[2022-09-22] MEDS: FLUTICASONE PROP 0.05% NASAL SPRAY 16 GM (FLONASE) NARES SCH ×2 (09:24→20:53)
[2022-09-22] MEDS: SODIUM CHLORIDE NASAL 0.65% SPRAY BTL (OCEAN) SCH ×3 (09:24→20:53)
[2022-09-22] MEDS: PREPARATION H SUPP (HEMORRHOID) PR SCH ×2 (09:24→20:54)
[2022-09-22] MEDS: SALIVA SUBSTITUTE(MOUTHKOTE) BTL MT SCH ×4 (09:24→20:53)
[2022-09-22] MEDS: REMEDY PHYTOPLEX Z-GUARD PASTE 113GM TUBE (FROM STOREROOM PRODUCT) TOP SCH ×3 (09:25→20:55)
[2022-09-22 14:00] VITALS: BP 110/59
[2022-09-22] MEDS: RIVAROXABAN 15MG TAB (XARELTO) PO SCH (17:58)
[2022-09-22 19:52] VITALS: BP 118/76
[2022-09-22] MEDS: oxyBUTYnin 5 MG TAB PO SCH (20:54)
[2022-09-22] MEDS: SENNA 8.6 MG TAB (SENOKOT) PO SCH (20:54)
[2022-09-22] MEDS: ATORVASTATIN 20 MG TAB PO SCH (20:55)
[2022-09-22] MEDS: ASPIRIN 81MG ENTERIC TABLET PO SCH (20:55)
[2022-09-22] MEDS: LORATADINE 10 MG TAB PO SCH (20:55)
[2022-09-23] MEDS: LevoFLOXacin 250 MG TABLET PO SCH (05:27)
[2022-09-23] MEDS: DICLOFENAC EPOLAMINE 1.3% PATCH TOP SCH ×2 (05:27→17:57)
[2022-09-23 05:31] VITALS: BP 132/74
[2022-09-23] MEDS: COMBIVENT RESPIMAT 100-20MCG INHALER 4GM INH SCH ×3 (08:00→19:49)
[2022-09-23] MEDS: LIDOCAINE 5% (LIDODERM) PATCH TD SCH (08:09)
[2022-09-23] MEDS: SALIVA SUBSTITUTE(MOUTHKOTE) BTL MT SCH ×4 (08:10→20:45)
[2022-09-23] MEDS: LISINOPRIL *2.5 MG* TAB PO SCH (08:10)
[2022-09-23] MEDS: DULoxetine 20MG CAP (CYMBALTA) PO SCH (08:10)
[2022-09-23] MEDS: DOCUSATE SODIUM 100MG CAPSULE PO SCH ×2 (08:10→20:44)
[2022-09-23] MEDS: LACTOBACILLUS ACIDOPHILUS CAP (BACID) PO SCH ×2 (08:10→17:57)
[2022-09-23] MEDS: guaiFENesin 200 MG TAB PO SCH ×3 (08:11→20:44)
[2022-09-23] MEDS: PANTOPRAZOLE 40MG TAB (PROTONIX) PO SCH (08:11)
[2022-09-23] MEDS: METOPROLOL SUCC *XL* 25MG TAB (TopROL *XL*) PO SCH (08:11)
[2022-09-23] MEDS: MULTIVITAMINS/MINERALS THERAP 1 TAB PO SCH (08:11)
[2022-09-23] MEDS: VITAMIN D 1,000 INTERNATIONAL UNITS TABLET PO SCH (08:12)
[2022-09-23] MEDS: allopurinoL 100 MG TAB PO SCH (08:12)
[2022-09-23] MEDS: FLUTICASONE PROP 0.05% NASAL SPRAY 16 GM (FLONASE) NARES SCH ×2 (08:12→20:45)
[2022-09-23] MEDS: SODIUM CHLORIDE NASAL 0.65% SPRAY BTL (OCEAN) SCH ×3 (08:12→20:45)
[2022-09-23] MEDS: PREPARATION H SUPP (HEMORRHOID) PR SCH ×2 (08:12→20:44)
[2022-09-23] MEDS: REMEDY PHYTOPLEX Z-GUARD PASTE 113GM TUBE (FROM STOREROOM PRODUCT) TOP SCH ×3 (08:13→20:45)
[2022-09-23 14:00] VITALS: BP 118/62
[2022-09-23] MEDS: RIVAROXABAN 15MG TAB (XARELTO) PO SCH (18:16)
[2022-09-23 20:00] VITALS: BP 128/66
[2022-09-23] MEDS: SENNA 8.6 MG TAB (SENOKOT) PO SCH (20:44)
[2022-09-23] MEDS: ASPIRIN 81MG ENTERIC TABLET PO SCH (20:44)
[2022-09-23] MEDS: LORATADINE 10 MG TAB PO SCH (20:44)
[2022-09-23] MEDS: oxyBUTYnin 5 MG TAB PO SCH (20:44)
[2022-09-23] MEDS: ATORVASTATIN 20 MG TAB PO SCH (20:44)
[2022-09-24] MEDS: DICLOFENAC EPOLAMINE 1.3% PATCH TOP SCH ×2 (05:39→17:33)
[2022-09-24 05:41] LABS: BASO # 0.1 10^3/uL (0.0-0.2); BASO % 0.7 % (0.0-1.0); EOS # 0.3 10^3/uL (0.0-0.5); EOS % 2.8 % (0.0-3.0); HEMATOCRIT 34.8 % (36.0-47.0); HEMOGLOBIN 11.3 g/dl (12.0-15.5); LYMPH % 21.2 % (24.0-44.0); MEAN CORPUSCULAR HEMOGLOBIN 31.9 pg (27.0-33.0); MEAN CORPUSCULAR HGB CONC 32.5 g/dl (32.0-36.5); MEAN CORPUSCULAR VOLUME 98.3 fl (80.0-96.0); MONO # 0.7 10^3/uL (0.0-0.8); MONO % 7.5 % (2.0-8.0); NEUTROPHILS # 6.2 10^3/uL (1.5-8.5); NEUTROPHILS % 67.6 % (36.0-66.0); PLATELET COUNT, AUTOMATED 237 10^3/uL (150-450); RED BLOOD COUNT 3.54 10^6/uL (4.00-5.40); WHITE BLOOD COUNT 9.2 10^3/uL (4.0-10.0)
[2022-09-24 06:00] VITALS: BP 110/72
[2022-09-24 06:05] LABS: CALCIUM LEVEL 8.9 MG/DL (8.3-10.6); CREATININE FOR GFR 0.98 MG/DL (0.55-1.30); GLOMERULAR FILTRATION RATE 57.6 (>32); POTASSIUM SERUM 4.7 MMOL/L (3.5-5.1)
[2022-09-24] MEDS: MULTIVITAMINS/MINERALS THERAP 1 TAB PO SCH (08:53)
[2022-09-24] MEDS: LACTOBACILLUS ACIDOPHILUS CAP (BACID) PO SCH ×2 (08:53→17:33)
[2022-09-24] MEDS: PANTOPRAZOLE 40MG TAB (PROTONIX) PO SCH (08:53)
[2022-09-24] MEDS: allopurinoL 100 MG TAB PO SCH (08:53)
[2022-09-24] MEDS: DOCUSATE SODIUM 100MG CAPSULE PO SCH ×2 (08:53→21:01)
[2022-09-24] MEDS: VITAMIN D 1,000 INTERNATIONAL UNITS TABLET PO SCH (08:53)
[2022-09-24] MEDS: DULoxetine 20MG CAP (CYMBALTA) PO SCH (08:53)
[2022-09-24] MEDS: guaiFENesin 200 MG TAB PO SCH ×3 (08:53→21:01)
[2022-09-24] MEDS: PREPARATION H SUPP (HEMORRHOID) PR SCH ×2 (08:54→21:01)
[2022-09-24] MEDS: FLUTICASONE PROP 0.05% NASAL SPRAY 16 GM (FLONASE) NARES SCH ×2 (08:54→21:01)
[2022-09-24] MEDS: SODIUM CHLORIDE NASAL 0.65% SPRAY BTL (OCEAN) SCH ×3 (08:54→21:01)
[2022-09-24] MEDS: METOPROLOL SUCC *XL* 25MG TAB (TopROL *XL*) PO SCH (08:54)
[2022-09-24] MEDS: SALIVA SUBSTITUTE(MOUTHKOTE) BTL MT SCH ×4 (08:54→21:03)
[2022-09-24] MEDS: LISINOPRIL *2.5 MG* TAB PO SCH (08:55)
[2022-09-24] MEDS: LIDOCAINE 5% (LIDODERM) PATCH TD SCH (08:56)
[2022-09-24] MEDS: REMEDY PHYTOPLEX Z-GUARD PASTE 113GM TUBE (FROM STOREROOM PRODUCT) TOP SCH ×3 (08:56→21:03)
[2022-09-24] MEDS: COMBIVENT RESPIMAT 100-20MCG INHALER 4GM INH SCH ×3 (11:20→20:08)
[2022-09-24 14:00] VITALS: BP 113/73
[2022-09-24] MEDS: RIVAROXABAN 15MG TAB (XARELTO) PO SCH (17:33)
[2022-09-24 20:00] VITALS: BP 118/73
[2022-09-24] MEDS: oxyBUTYnin 5 MG TAB PO SCH (21:00)
[2022-09-24] MEDS: LORATADINE 10 MG TAB PO SCH (21:00)
[2022-09-24] MEDS: ATORVASTATIN 20 MG TAB PO SCH (21:00)
[2022-09-24] MEDS: SENNA 8.6 MG TAB (SENOKOT) PO SCH (21:01)
[2022-09-24] MEDS: ASPIRIN 81MG ENTERIC TABLET PO SCH (21:01)
[2022-09-25 05:34] VITALS: BP 142/79
[2022-09-25] MEDS: DICLOFENAC EPOLAMINE 1.3% PATCH TOP SCH ×2 (05:47→18:00)
[2022-09-25] MEDS: COMBIVENT RESPIMAT 100-20MCG INHALER 4GM INH SCH ×3 (07:12→19:10)
[2022-09-25] MEDS: MULTIVITAMINS/MINERALS THERAP 1 TAB PO SCH (08:47)
[2022-09-25] MEDS: VITAMIN D 1,000 INTERNATIONAL UNITS TABLET PO SCH (08:47)
[2022-09-25] MEDS: guaiFENesin 200 MG TAB PO SCH ×3 (08:47→21:06)
[2022-09-25] MEDS: LACTOBACILLUS ACIDOPHILUS CAP (BACID) PO SCH ×2 (08:47→17:59)
[2022-09-25] MEDS: allopurinoL 100 MG TAB PO SCH (08:48)
[2022-09-25] MEDS: DULoxetine 20MG CAP (CYMBALTA) PO SCH (08:48)
[2022-09-25] MEDS: LIDOCAINE 5% (LIDODERM) PATCH TD SCH (08:48)
[2022-09-25] MEDS: LISINOPRIL *2.5 MG* TAB PO SCH (08:48)
[2022-09-25] MEDS: PANTOPRAZOLE 40MG TAB (PROTONIX) PO SCH (08:48)
[2022-09-25] MEDS: METOPROLOL SUCC *XL* 25MG TAB (TopROL *XL*) PO SCH (08:48)
[2022-09-25] MEDS: DOCUSATE SODIUM 100MG CAPSULE PO SCH ×2 (08:48→21:06)
[2022-09-25] MEDS: SALIVA SUBSTITUTE(MOUTHKOTE) BTL MT SCH ×4 (08:49→21:08)
[2022-09-25] MEDS: SODIUM CHLORIDE NASAL 0.65% SPRAY BTL (OCEAN) SCH ×3 (08:49→21:06)
[2022-09-25] MEDS: FLUTICASONE PROP 0.05% NASAL SPRAY 16 GM (FLONASE) NARES SCH ×2 (08:49→21:07)
[2022-09-25] MEDS: PREPARATION H SUPP (HEMORRHOID) PR SCH ×2 (08:49→20:48)
[2022-09-25] MEDS: REMEDY PHYTOPLEX Z-GUARD PASTE 113GM TUBE (FROM STOREROOM PRODUCT) TOP SCH ×3 (08:50→21:07)
[2022-09-25] MEDS: ACETAMINOPHEN TAB 650MG DOSE (2X325MG) PO PRN ×2 (12:19→21:06)
[2022-09-25 14:00] VITALS: BP 133/85
[2022-09-25] MEDS: RIVAROXABAN 15MG TAB (XARELTO) PO SCH (17:59)
[2022-09-25 20:06] VITALS: BP 109/74
[2022-09-25] MEDS: ATORVASTATIN 20 MG TAB PO SCH (21:05)
[2022-09-25] MEDS: ASPIRIN 81MG ENTERIC TABLET PO SCH (21:05)
[2022-09-25] MEDS: SENNA 8.6 MG TAB (SENOKOT) PO SCH (21:05)
[2022-09-25] MEDS: LORATADINE 10 MG TAB PO SCH (21:05)
[2022-09-25] MEDS: oxyBUTYnin 5 MG TAB PO SCH (21:07)
[2022-09-26 04:57] VITALS: BP 107/62
[2022-09-26] MEDS: DICLOFENAC EPOLAMINE 1.3% PATCH TOP SCH ×2 (05:57→17:03)
[2022-09-26] MEDS: COMBIVENT RESPIMAT 100-20MCG INHALER 4GM INH SCH ×3 (08:00→19:32)
[2022-09-26] MEDS: VITAMIN D 1,000 INTERNATIONAL UNITS TABLET PO SCH (08:16)
[2022-09-26] MEDS: MULTIVITAMINS/MINERALS THERAP 1 TAB PO SCH (08:16)
[2022-09-26] MEDS: PREPARATION H SUPP (HEMORRHOID) PR SCH ×2 (08:16→20:26)
[2022-09-26] MEDS: METOPROLOL SUCC *XL* 25MG TAB (TopROL *XL*) PO SCH (08:16)
[2022-09-26] MEDS: DOCUSATE SODIUM 100MG CAPSULE PO SCH ×2 (08:16→20:26)
[2022-09-26] MEDS: allopurinoL 100 MG TAB PO SCH (08:16)
[2022-09-26] MEDS: DULoxetine 20MG CAP (CYMBALTA) PO SCH (08:16)
[2022-09-26] MEDS: LISINOPRIL *2.5 MG* TAB PO SCH (08:16)
[2022-09-26] MEDS: LACTOBACILLUS ACIDOPHILUS CAP (BACID) PO SCH ×2 (08:16→17:02)
[2022-09-26] MEDS: guaiFENesin 200 MG TAB PO SCH ×3 (08:16→20:26)
[2022-09-26] MEDS: PANTOPRAZOLE 40MG TAB (PROTONIX) PO SCH (08:16)
[2022-09-26] MEDS: SALIVA SUBSTITUTE(MOUTHKOTE) BTL MT SCH ×4 (08:17→20:28)
[2022-09-26] MEDS: LIDOCAINE 5% (LIDODERM) PATCH TD SCH (08:17)
[2022-09-26] MEDS: FLUTICASONE PROP 0.05% NASAL SPRAY 16 GM (FLONASE) NARES SCH ×2 (08:18→20:27)
[2022-09-26] MEDS: SODIUM CHLORIDE NASAL 0.65% SPRAY BTL (OCEAN) SCH ×3 (08:18→20:27)
[2022-09-26] MEDS: REMEDY PHYTOPLEX Z-GUARD PASTE 113GM TUBE (FROM STOREROOM PRODUCT) TOP SCH ×3 (08:18→20:27)
[2022-09-26 12:48] LABS: BASO # 0.1 10^3/uL (0.0-0.2); BASO % 0.7 % (0.0-1.0); EOS # 0.2 10^3/uL (0.0-0.5); EOS % 2.3 % (0.0-3.0); HEMATOCRIT 36.5 % (36.0-47.0); HEMOGLOBIN 11.8 g/dl (12.0-15.5); LYMPH # 1.5 10^3/uL (1.5-5.0); MEAN CORPUSCULAR HEMOGLOBIN 31.8 pg (27.0-33.0); MEAN CORPUSCULAR HGB CONC 32.3 g/dl (32.0-36.5); MEAN CORPUSCULAR VOLUME 98.4 fl (80.0-96.0); MONO # 0.5 10^3/uL (0.0-0.8); MONO % 5.9 % (2.0-8.0); NEUTROPHILS # 6.6 10^3/uL (1.5-8.5); NEUTROPHILS % 73.8 % (36.0-66.0); PLATELET COUNT, AUTOMATED 238 10^3/uL (150-450); RED BLOOD COUNT 3.71 10^6/uL (4.00-5.40)
[2022-09-26 13:23] LABS: BLOOD UREA NITROGEN 20 MG/DL (9-23); CALCIUM LEVEL 9.2 MG/DL (8.3-10.6); CARBON DIOXIDE LEVEL 22 MMOL/L (20-31); CHLORIDE LEVEL 100 MMOL/L (98-107); CREATININE FOR GFR 0.83 MG/DL (0.55-1.30); GLOMERULAR FILTRATION RATE > 60.0 (>32); GLUCOSE, FASTING 96 MG/DL (74-106); POTASSIUM SERUM 4.5 MMOL/L (3.5-5.1); SODIUM LEVEL 133 MMOL/L (136-145)
[2022-09-26 14:00] VITALS: BP 140/56
[2022-09-26] MEDS: RIVAROXABAN 15MG TAB (XARELTO) PO SCH (17:02)
[2022-09-26 20:00] VITALS: BP 122/80
[2022-09-26] MEDS: LORATADINE 10 MG TAB PO SCH (20:26)
[2022-09-26] MEDS: ATORVASTATIN 20 MG TAB PO SCH (20:26)
[2022-09-26] MEDS: ASPIRIN 81MG ENTERIC TABLET PO SCH (20:26)
[2022-09-26] MEDS: SENNA 8.6 MG TAB (SENOKOT) PO SCH (20:26)
[2022-09-26] MEDS: oxyBUTYnin 5 MG TAB PO SCH (20:26)
[2022-09-27] MEDS: DICLOFENAC EPOLAMINE 1.3% PATCH TOP SCH ×2 (05:37→17:10)
[2022-09-27 06:00] VITALS: BP 138/80
[2022-09-27] MEDS: COMBIVENT RESPIMAT 100-20MCG INHALER 4GM INH SCH ×3 (07:51→19:36)
[2022-09-27] MEDS: allopurinoL 100 MG TAB PO SCH (08:18)
[2022-09-27] MEDS: VITAMIN D 1,000 INTERNATIONAL UNITS TABLET PO SCH (08:18)
[2022-09-27] MEDS: MULTIVITAMINS/MINERALS THERAP 1 TAB PO SCH (08:18)
[2022-09-27] MEDS: LACTOBACILLUS ACIDOPHILUS CAP (BACID) PO SCH ×2 (08:18→17:10)
[2022-09-27] MEDS: PREPARATION H SUPP (HEMORRHOID) PR SCH ×2 (08:18→20:24)
[2022-09-27] MEDS: PANTOPRAZOLE 40MG TAB (PROTONIX) PO SCH (08:18)
[2022-09-27] MEDS: guaiFENesin 200 MG TAB PO SCH ×3 (08:19→20:25)
[2022-09-27] MEDS: LISINOPRIL *2.5 MG* TAB PO SCH (08:19)
[2022-09-27] MEDS: LIDOCAINE 5% (LIDODERM) PATCH TD SCH (08:19)
[2022-09-27] MEDS: DULoxetine 20MG CAP (CYMBALTA) PO SCH (08:19)
[2022-09-27] MEDS: SODIUM CHLORIDE NASAL 0.65% SPRAY BTL (OCEAN) SCH ×3 (08:19→20:26)
[2022-09-27] MEDS: METOPROLOL SUCC *XL* 25MG TAB (TopROL *XL*) PO SCH (08:19)
[2022-09-27] MEDS: FLUTICASONE PROP 0.05% NASAL SPRAY 16 GM (FLONASE) NARES SCH ×2 (08:19→20:26)
[2022-09-27] MEDS: REMEDY PHYTOPLEX Z-GUARD PASTE 113GM TUBE (FROM STOREROOM PRODUCT) TOP SCH ×3 (08:20→20:24)
[2022-09-27] MEDS: DOCUSATE SODIUM 100MG CAPSULE PO SCH ×2 (08:24→19:09)
[2022-09-27] MEDS: SALIVA SUBSTITUTE(MOUTHKOTE) BTL MT SCH ×4 (08:24→20:26)
[2022-09-27 14:00] VITALS: BP 123/85
[2022-09-27] MEDS: RIVAROXABAN 15MG TAB (XARELTO) PO SCH (17:10)
[2022-09-27] MEDS: SENNA 8.6 MG TAB (SENOKOT) PO SCH (19:10)
[2022-09-27 20:00] VITALS: BP 118/76
[2022-09-27] MEDS: LORATADINE 10 MG TAB PO SCH (20:24)
[2022-09-27] MEDS: ATORVASTATIN 20 MG TAB PO SCH (20:25)
[2022-09-27] MEDS: ACETAMINOPHEN TAB 650MG DOSE (2X325MG) PO PRN (20:25)
[2022-09-27] MEDS: oxyBUTYnin 5 MG TAB PO SCH (20:25)
[2022-09-27] MEDS: ASPIRIN 81MG ENTERIC TABLET PO SCH (20:25)
[2022-09-28] MEDS: DICLOFENAC EPOLAMINE 1.3% PATCH TOP SCH (05:29)
[2022-09-28 05:56] VITALS: BP 129/76
[2022-09-28] MEDS: COMBIVENT RESPIMAT 100-20MCG INHALER 4GM INH SCH ×2 (07:31→13:32)
[2022-09-28] MEDS: DULoxetine 20MG CAP (CYMBALTA) PO SCH (08:26)
[2022-09-28] MEDS: METOPROLOL SUCC *XL* 25MG TAB (TopROL *XL*) PO SCH (08:26)
[2022-09-28] MEDS: LACTOBACILLUS ACIDOPHILUS CAP (BACID) PO SCH (08:26)
[2022-09-28] MEDS: VITAMIN D 1,000 INTERNATIONAL UNITS TABLET PO SCH (08:26)
[2022-09-28] MEDS: MULTIVITAMINS/MINERALS THERAP 1 TAB PO SCH (08:26)
[2022-09-28] MEDS: allopurinoL 100 MG TAB PO SCH (08:26)
[2022-09-28 08:27] VITALS: BP 129/76
[2022-09-28] MEDS: PANTOPRAZOLE 40MG TAB (PROTONIX) PO SCH (08:27)
[2022-09-28] MEDS: LISINOPRIL *2.5 MG* TAB PO SCH (08:27)
[2022-09-28] MEDS: guaiFENesin 200 MG TAB PO SCH (08:27)
[2022-09-28] MEDS: PREPARATION H SUPP (HEMORRHOID) PR SCH (08:28)
[2022-09-28] MEDS: LIDOCAINE 5% (LIDODERM) PATCH TD SCH (08:28)
[2022-09-28] MEDS: ACETAMINOPHEN TAB 650MG DOSE (2X325MG) PO PRN ×2 (08:28→13:10)
[2022-09-28] MEDS: SODIUM CHLORIDE NASAL 0.65% SPRAY BTL (OCEAN) SCH (08:29)
[2022-09-28] MEDS: FLUTICASONE PROP 0.05% NASAL SPRAY 16 GM (FLONASE) NARES SCH (08:29)
[2022-09-28] MEDS: REMEDY PHYTOPLEX Z-GUARD PASTE 113GM TUBE (FROM STOREROOM PRODUCT) TOP SCH (08:29)
[2022-09-28] MEDS: DOCUSATE SODIUM 100MG CAPSULE PO SCH (08:30)
[2022-09-28] MEDS: SALIVA SUBSTITUTE(MOUTHKOTE) BTL MT SCH (08:30)
[2022-09-28 09:54] LABS: BASO % 0.6 % (0.0-1.0); EOS # 0.2 10^3/uL (0.0-0.5); EOS % 2.4 % (0.0-3.0); HEMOGLOBIN 12.1 g/dl (12.0-15.5); LYMPH # 1.4 10^3/uL (1.5-5.0); LYMPH % 20.3 % (24.0-44.0); MEAN CORPUSCULAR HEMOGLOBIN 31.5 pg (27.0-33.0); MEAN CORPUSCULAR HGB CONC 31.8 g/dl (32.0-36.5); MONO # 0.5 10^3/uL (0.0-0.8); MONO % 7.3 % (2.0-8.0); NEUTROPHILS # 4.9 10^3/uL (1.5-8.5); PLATELET COUNT, AUTOMATED 237 10^3/uL (150-450); RED BLOOD COUNT 3.84 10^6/uL (4.00-5.40); WHITE BLOOD COUNT 7.1 10^3/uL (4.0-10.0)
[2022-09-28 10:21] LABS: BLOOD UREA NITROGEN 16 MG/DL (9-23); CALCIUM LEVEL 9.2 MG/DL (8.3-10.6); CARBON DIOXIDE LEVEL 25 MMOL/L (20-31); CHLORIDE LEVEL 101 MMOL/L (98-107); CREATININE FOR GFR 0.87 MG/DL (0.55-1.30); GLOMERULAR FILTRATION RATE > 60.0 (>32); GLUCOSE, FASTING 114 MG/DL (74-106); POTASSIUM SERUM 4.4 MMOL/L (3.5-5.1); SODIUM LEVEL 135 MMOL/L (136-145)
[2022-09-28] MEDS ORDERED: METO1TAB32 PO (13:15)
[2022-09-28] MEDS ORDERED: COMBAER6 INH (13:15)
[2022-09-28] MEDS ORDERED: ASPI81CH49 PO (13:15)
[2022-09-28] MEDS ORDERED: HEMO1SUP10 PR (13:15)
[2022-09-28] MEDS ORDERED: ALLO10TA PO (13:15)
[2022-09-28] MEDS ORDERED: LISI2.5T9 PO (13:15)
[2022-09-28] MEDS ORDERED: ATOR40TA75 PO (13:15)
[2022-09-28] MEDS ORDERED: TORS10TA3 PO (13:15)
[2022-09-28] MEDS ORDERED: OXYB5TAB10 PO (13:15)
[2022-09-28] MEDS ORDERED: CYMB1CAP4 PO (13:15)
[2022-09-28] MEDS ORDERED: XARE15TA PO (13:15)
== END 2022-09-28 14:15 | disposition home health service (06) | DRG 56 ==
LOC: M PM&R 08-30 17:00
PROVIDERS: ADMIT Physical Medicine & Rehabilitation; ATTEND Physical Medicine & Rehabilitation
DX: I69.354 Hemiplegia and hemiparesis following cerebral infarction affecting left non-dominant side (principal); J69.0 Pneumonitis due to inhalation of food and vomit; I50.32 Chronic diastolic (congestive) heart failure; I13.0 Hypertensive heart and chronic kidney disease with heart failure and stage 1 through stage 4 chronic kidney disease, or unspecified chronic kidney disease; N17.9 Acute kidney failure, unspecified; N39.0 Urinary tract infection, site not specified; I69.321 Dysphasia following cerebral infarction; R26.89 Other abnormalities of gait and mobility; N32.9 Bladder disorder, unspecified; I69.391 Dysphagia following cerebral infarction; R13.10 Dysphagia, unspecified; I48.91 Unspecified atrial fibrillation; E66.01 Morbid (severe) obesity due to excess calories; M17.0 Bilateral primary osteoarthritis of knee; I34.0 Nonrheumatic mitral (valve) insufficiency; I25.10 Atherosclerotic heart disease of native coronary artery without angina pectoris; N18.9 Chronic kidney disease, unspecified; M10.9 Gout, unspecified; E78.5 Hyperlipidemia, unspecified; Z74.09 Other reduced mobility; Z74.1 Need for assistance with personal care; R32 Unspecified urinary incontinence; Z79.82 Long term (current) use of aspirin; Z79.01 Long term (current) use of anticoagulants; Z79.899 Other long term (current) drug therapy; Z87.891 Personal history of nicotine dependence; S90.02XA Contusion of left ankle, initial encounter; Y92.230 Patient room in hospital as the place of occurrence of the external cause; G47.30 Sleep apnea, unspecified; I27.20 Pulmonary hypertension, unspecified; D64.9 Anemia, unspecified; K59.00 Constipation, unspecified; F39 Unspecified mood [affective] disorder

== ENCOUNTER → 2022-10-31 | Outpatient (CLI) | payer MEDICARE, MEDICAID ==
[~2022-10-31] MED LIST changes: +COMBAER6 INH; +COZA1TAB PO; +CYMB1CAP4 PO; +HEMO1SUP10 PR; +LISI2.5T9 PO; +OXYB5TAB10 PO; +TORS10TA3 PO; +XARE15TA PO
[2022-10-31 13:47] LABS: BASO # 0.1 10^3/uL (0.0-0.2); BASO % 0.4 % (0.0-1.0); EOS # 0.3 10^3/uL (0.0-0.5); EOS % 2.6 % (0.0-3.0); HEMATOCRIT 44.7 % (36.0-47.0); HEMOGLOBIN 14.2 g/dl (12.0-15.5); LYMPH # 2.4 10^3/uL (1.5-5.0); LYMPH % 20.8 % (24.0-44.0); MEAN CORPUSCULAR HEMOGLOBIN 31.4 pg (27.0-33.0); MEAN CORPUSCULAR HGB CONC 31.8 g/dl (32.0-36.5); MEAN CORPUSCULAR VOLUME 98.9 fl (80.0-96.0); MONO # 0.8 10^3/uL (0.0-0.8); MONO % 6.5 % (2.0-8.0); NEUTROPHILS # 8.1 10^3/uL (1.5-8.5); NEUTROPHILS % 69.4 % (36.0-66.0); PLATELET COUNT, AUTOMATED 278 10^3/uL (150-450); RED BLOOD COUNT 4.52 10^6/uL (4.00-5.40); WHITE BLOOD COUNT 11.7 10^3/uL (4.0-10.0)
[2022-10-31 14:13] LABS: BILIRUBIN,TOTAL 0.8 MG/DL (0.3-1.2); CALCIUM LEVEL 10.5 MG/DL (8.3-10.6); CREATININE FOR GFR 1.13 MG/DL (0.55-1.30); GLOMERULAR FILTRATION RATE 48.8 (>32); POTASSIUM SERUM 5.4 MMOL/L (3.5-5.1); TOTAL PROTEIN 6.2 G/DL (5.7-8.2)
== END ==
LOC: M PLALAB 11:35
PROVIDERS: ATTEND Physician Assistant
DX: I63.411 Cerebral infarction due to embolism of right middle cerebral artery (principal)

== ENCOUNTER 2023-01-23 14:37 | Inpatient (IN) | payer MEDICARE, MEDICAID ==
[~2023-01-23] VITALS: Ht 157.5 cm; Wt 65.7 kg
[~2023-01-23 14:37] MED LIST changes: -SENN-111 PO; +SENN-188 PO
[2023-01-23] MEDS ORDERED: NS 1,000 ML IV ONE (15:40)
[2023-01-23 16:23] LABS: VENOUS BASE EXCESS -3.8 (-2.0-2.0); VENOUS HCO3 22.7 MMOL/L (23.0-27.0); VENOUS PARTIAL PRESSURE CO2 46.8 mmHg (38.0-50.0); VENOUS PARTIAL PRESSURE O2 27.2 mmHg (30.0-50.0); VENOUS PH 7.304 UNITS (7.330-7.430); VENOUS STANDARD HCO3 20.1 MMOL/L; VENOUS TOTAL CO2 24.2 MMOL/L (24.0-28.0)
[2023-01-23 16:28] LABS: BASO % 0.3 % (0.0-1.0); EOS # 0.1 10^3/uL (0.0-0.5); EOS % 0.6 % (0.0-3.0); HEMATOCRIT 41.4 % (36.0-47.0); HEMOGLOBIN 13.2 g/dl (12.0-15.5); LYMPH # 1.5 10^3/uL (1.5-5.0); LYMPH % 16.5 % (24.0-44.0); MEAN CORPUSCULAR HEMOGLOBIN 32.4 pg (27.0-33.0); MEAN CORPUSCULAR HGB CONC 31.9 g/dl (32.0-36.5); MEAN CORPUSCULAR VOLUME 101.7 fl (80.0-96.0); MONO # 0.8 10^3/uL (0.0-0.8); MONO % 8.4 % (2.0-8.0); NEUTROPHILS # 6.6 10^3/uL (1.5-8.5); NEUTROPHILS % 73.8 % (36.0-66.0); PLATELET COUNT, AUTOMATED 237 10^3/uL (150-450); RED BLOOD COUNT 4.07 10^6/uL (4.00-5.40); WHITE BLOOD COUNT 8.9 10^3/uL (4.0-10.0)
[2023-01-23 16:40] LABS: INR 1.76; PROTHROMBIN TIME 20.8 SECONDS (12.5-14.5)
[2023-01-23 16:41] LABS: PARTIAL THROMBOPLASTIN TIME 36.7 SECONDS (24.8-34.2)
[2023-01-23 16:46] LABS: CK-MB VALUE MASS 2.1 NG/ML (<3.6); ERYTHROCYTE SEDIMENTATION RATE 6 mm/hr (0-30)
[2023-01-23 16:48] LABS: LIPASE 18 U/L (12-53)
[2023-01-23 16:50] LABS: ALBUMIN 2.7 G/DL (3.2-5.2); ALKALINE PHOSPHATASE 119 U/L (46-116); ALT/SGPT 18 U/L (7.0-40); AST/SGOT 24 U/L (<34); BILIRUBIN,DIRECT 0.5 MG/DL (<0.4); BILIRUBIN,TOTAL 0.9 MG/DL (0.3-1.2); BLOOD UREA NITROGEN 22 MG/DL (9-23); CALCIUM LEVEL 9.6 MG/DL (8.3-10.6); CARBON DIOXIDE LEVEL 24 MMOL/L (20-31); CHLORIDE LEVEL 111 MMOL/L (98-107); CREATININE FOR GFR 0.73 MG/DL (0.55-1.30); GLOMERULAR FILTRATION RATE > 60.0 (>32); GLUCOSE, FASTING 109 MG/DL (74-106); POTASSIUM SERUM 4.7 MMOL/L (3.5-5.1); SODIUM LEVEL 142 MMOL/L (136-145); TOTAL PROTEIN 5.4 G/DL (5.7-8.2)
[2023-01-23 16:51] LABS: CPK CREATINE PHOSPHOKINASE 78 U/L (34-145); MB/CK RELATIVE INDEX 2.69 (< OR =4)
[2023-01-23 16:58] LABS: RSV AMPLIFICATION NEGATIVE (NEGATIVE)
[2023-01-24 00:30] VITALS: BP 108/74
[2023-01-24] MEDS: DIGOXIN INJ 0.5 MG/2 ML AMP IV SCH ×2 (01:05→06:57)
[2023-01-24 04:33] VITALS: BP 106/57
[2023-01-24 07:58] VITALS: BP 100/63
[2023-01-24] MEDS: MAG SULF 1GM/100ML (MAG RUN) 1 GM in IV 1 EA IV SCH ×2 (08:36→09:56)
[2023-01-24] MEDS: COLCHICINE 0.6 MG TABLET PO SCH (09:00)
[2023-01-24] MEDS ORDERED: FUROSEMIDE 20MG/2ML VIAL IV SCH ×2 (09:00)
[2023-01-24] MEDS: NYSTATIN 100,000 UNITS/GM TOPICAL PWD 15GM TOP SCH (09:00)
[2023-01-24] MEDS ORDERED: ALLO100T PO (09:05)
[2023-01-24] MEDS ORDERED: ECOT81TA5 PO (09:05)
[2023-01-24] MEDS ORDERED: OXYB5TAB10 PO (09:17)
[2023-01-24] MEDS ORDERED: DULO1CAP4 PO (09:17)
[2023-01-24] MEDS ORDERED: METO1TAB87 PO (09:17)
[2023-01-24] MEDS ORDERED: COMBAER6 INH (09:17)
[2023-01-24] MEDS ORDERED: XARE15TA PO (09:17)
[2023-01-24] MEDS ORDERED: LISI2.5T9 PO (09:17)
[2023-01-24] MEDS ORDERED: TORS10TA3 PO (09:18)
[2023-01-24] MEDS ORDERED: MAG SULF 1GM/100ML (MAG RUN) 1 GM in IV 1 EA IV ONE (11:00)
[2023-01-24] MEDS ORDERED: LR 1,000 ML IV SCH (11:00)
[2023-01-24 11:46] VITALS: BP 106/58
[2023-01-24 12:03] LABS: VENOUS BASE EXCESS -4.9 (-2.0-2.0); VENOUS HCO3 20.1 MMOL/L (23.0-27.0); VENOUS O2 SATURATION 97.4 % (60.0-80.0); VENOUS PARTIAL PRESSURE CO2 37.2 mmHg (38.0-50.0); VENOUS PH 7.351 UNITS (7.330-7.430); VENOUS STANDARD HCO3 20.5 MMOL/L; VENOUS TOTAL CO2 21.3 MMOL/L (24.0-28.0)
[2023-01-24] MEDS: cefTRIAXone SOD 1 GM in D5W MINI-BAG PLUS 50 ML IV SCH (12:08)
[2023-01-24] MEDS ORDERED: HOME MED LIST COMPLETE! XX SCH (13:45)
[2023-01-24] MEDS ORDERED: GLUCAGON INJ 1MG VIAL SC PRN (14:20)
[2023-01-24] MEDS ORDERED: GLUCOSE 4GM CHEW TABLET PO PRN (14:20)
[2023-01-24] MEDS ORDERED: DEXTROSE 50% 50ML SYRINGE IV PRN (14:20)
[2023-01-24] MEDS ORDERED: ENOXAPARIN 80MG/0.8ML SYRINGE (J1650 PER 10MG) SC SCH (15:00)
[2023-01-24 15:33] LABS: FREE T4 0.96 NG/DL (0.89-1.76); THYROID STIMULATING HORMONE 2.498 uIU/ML (0.55-4.78)
[2023-01-24 15:58] VITALS: BP 123/62
[2023-01-24] MEDS ORDERED: D10W 1,000 ML IV SCH (16:00)
[2023-01-24] MEDS: ENOXAPARIN 80MG/0.8ML SYRINGE (J1650 PER 10MG) SC SCH (17:21)
[2023-01-24 19:49] VITALS: BP 131/62
[2023-01-25] VITALS: BP 132/70
[2023-01-25 04:56] VITALS: BP_SYST 106; BP_SYST 112; BP_DIAS 60; BP_DIAS 64
[2023-01-25] MEDS: ENOXAPARIN 80MG/0.8ML SYRINGE (J1650 PER 10MG) SC SCH ×2 (05:22→17:57)
[2023-01-25] MEDS: D5W/LR 1,000 ML IV SCH (05:58)
[2023-01-25 06:36] LABS: HEMATOCRIT 37.9 % (36.0-47.0); HEMOGLOBIN 12.5 g/dl (12.0-15.5); MEAN CORPUSCULAR HEMOGLOBIN 32.9 pg (27.0-33.0); MEAN CORPUSCULAR VOLUME 99.7 fl (80.0-96.0); PLATELET COUNT, AUTOMATED 222 10^3/uL (150-450); WHITE BLOOD COUNT 7.1 10^3/uL (4.0-10.0)
[2023-01-25 07:13] LABS: BLOOD UREA NITROGEN 15 MG/DL (9-23); CALCIUM LEVEL 8.5 MG/DL (8.3-10.6); CARBON DIOXIDE LEVEL 24 MMOL/L (20-31); CHLORIDE LEVEL 110 MMOL/L (98-107); CREATININE FOR GFR 0.59 MG/DL (0.55-1.30); GLOMERULAR FILTRATION RATE > 60.0 (>32); GLUCOSE, FASTING 92 MG/DL (74-106); MAGNESIUM LEVEL 1.8 MG/DL (1.8-2.4); PHOSPHORUS LEVEL 2.7 MG/DL (2.4-5.1); POTASSIUM SERUM 3.2 MMOL/L (3.5-5.1); SODIUM LEVEL 143 MMOL/L (136-145)
[2023-01-25 07:34] VITALS: BP 109/78
[2023-01-25] MEDS: COLCHICINE 0.6 MG TABLET PO SCH (08:42)
[2023-01-25] MEDS: KCL 10MEQ/100ML SWI (KRUN) 10 MEQ in IV 1 EA IV SCH ×4 (08:42→14:52)
[2023-01-25] MEDS: NYSTATIN 100,000 UNITS/GM TOPICAL PWD 15GM TOP SCH (08:45)
[2023-01-25] MEDS ORDERED: MAG SULF 1GM/100ML (MAG RUN) 1 GM in IV 1 EA IV ONE (11:00)
[2023-01-25 12:38] VITALS: BP 120/71
[2023-01-25] MEDS: cefTRIAXone SOD 1 GM in D5W MINI-BAG PLUS 50 ML IV SCH (13:02)
[2023-01-25] MEDS ORDERED: KCL 10MEQ/100ML SWI (KRUN) 10 MEQ in IV 1 EA IV ONE (15:00)
[2023-01-25 20:00] VITALS: BP 120/74
[2023-01-25 23:30] VITALS: BP 122/82
[2023-01-26] VITALS (7 sets, daily range): BP systolic 122–143; BP diastolic 68–97
[2023-01-26 05:29] LABS: BASO % 0.1 % (0.0-1.0); HEMATOCRIT 40.9 % (36.0-47.0); HEMOGLOBIN 13.4 g/dl (12.0-15.5); LYMPH # 1.2 10^3/uL (1.5-5.0); LYMPH % 18.1 % (24.0-44.0); MEAN CORPUSCULAR HEMOGLOBIN 32.4 pg (27.0-33.0); MEAN CORPUSCULAR HGB CONC 32.8 g/dl (32.0-36.5); MEAN CORPUSCULAR VOLUME 98.8 fl (80.0-96.0); MONO # 0.7 10^3/uL (0.0-0.8); MONO % 9.5 % (2.0-8.0); NEUTROPHILS # 4.9 10^3/uL (1.5-8.5); NEUTROPHILS % 71.9 % (36.0-66.0); PLATELET COUNT, AUTOMATED 255 10^3/uL (150-450); RED BLOOD COUNT 4.14 10^6/uL (4.00-5.40); WHITE BLOOD COUNT 6.8 10^3/uL (4.0-10.0)
[2023-01-26 06:02] LABS: BLOOD UREA NITROGEN 14 MG/DL (9-23); CARBON DIOXIDE LEVEL 24 MMOL/L (20-31); CHLORIDE LEVEL 108 MMOL/L (98-107); CREATININE FOR GFR 0.59 MG/DL (0.55-1.30); GLOMERULAR FILTRATION RATE > 60.0 (>32); GLUCOSE, FASTING 117 MG/DL (74-106); PHOSPHORUS LEVEL 2.8 MG/DL (2.4-5.1); POTASSIUM SERUM 4.2 MMOL/L (3.5-5.1); SODIUM LEVEL 141 MMOL/L (136-145)
[2023-01-26] MEDS: ENOXAPARIN 80MG/0.8ML SYRINGE (J1650 PER 10MG) SC SCH ×2 (06:05→18:43)
[2023-01-26] MEDS ORDERED: ASPIRIN 300 MG SUPP PR ONE (08:50)
[2023-01-26] MEDS: cefTRIAXone SOD 1 GM in D5W MINI-BAG PLUS 50 ML IV SCH (09:21)
[2023-01-26] MEDS: NYSTATIN 100,000 UNITS/GM TOPICAL PWD 15GM TOP SCH (09:22)
[2023-01-26] MEDS: D5W/LR 1,000 ML IV SCH (10:00)
[2023-01-26 10:05] LABS: CHOLESTEROL LEVEL 132 MG/DL (<200); CHOLESTEROL RISK RATIO 2.83 (<5); HDL CHOLESTEROL 46.6 MG/DL (>40); NON-HDL-C 85.4 MG/DL; TRIGLYCERIDES LEVEL 127 MG/DL (<150)
[2023-01-26 12:08] LABS: ANTINUCLEAR ANTIBODIES DIRECT Negative (Negative)
[2023-01-26] MEDS ORDERED: FUROSEMIDE 20MG/2ML VIAL IV ONE (15:55)
[2023-01-26] MEDS ORDERED: ISOVUE-370 76% 100ML VIAL As Ordered ONE (17:06)
[2023-01-26] MEDS ORDERED: METOPROLOL 5 MG/5 ML VIAL IV ONE (18:20)
[2023-01-26] MEDS ORDERED: FLEET OIL RETENTION ENEMA PR ONE (19:00)
[2023-01-26] MEDS ORDERED: BISACODYL 10MG SUPP PR ONE (19:00)
[2023-01-27 03:37] VITALS: BP 130/73
[2023-01-27] MEDS: ENOXAPARIN 80MG/0.8ML SYRINGE (J1650 PER 10MG) SC SCH (06:05)
[2023-01-27 06:15] LABS: HEMATOCRIT 36.9 % (36.0-47.0); HEMOGLOBIN 12.1 g/dl (12.0-15.5); MEAN CORPUSCULAR HEMOGLOBIN 32.4 pg (27.0-33.0); MEAN CORPUSCULAR HGB CONC 32.8 g/dl (32.0-36.5); MEAN CORPUSCULAR VOLUME 98.7 fl (80.0-96.0); PLATELET COUNT, AUTOMATED 248 10^3/uL (150-450); RED BLOOD COUNT 3.74 10^6/uL (4.00-5.40); WHITE BLOOD COUNT 8.6 10^3/uL (4.0-10.0)
[2023-01-27 06:53] LABS: BLOOD UREA NITROGEN 13 MG/DL (9-23); CALCIUM LEVEL 8.9 MG/DL (8.3-10.6); CARBON DIOXIDE LEVEL 26 MMOL/L (20-31); CHLORIDE LEVEL 109 MMOL/L (98-107); CREATININE FOR GFR 0.64 MG/DL (0.55-1.30); GLOMERULAR FILTRATION RATE > 60.0 (>32); GLUCOSE, FASTING 91 MG/DL (74-106); MAGNESIUM LEVEL 1.7 MG/DL (1.8-2.4); PHOSPHORUS LEVEL 2.7 MG/DL (2.4-5.1); POTASSIUM SERUM 3.6 MMOL/L (3.5-5.1); SODIUM LEVEL 143 MMOL/L (136-145)
[2023-01-27] MEDS ORDERED: FLEET OIL RETENTION ENEMA PR ONE (07:05)
[2023-01-27] MEDS: MAG SULF 1GM/100ML (MAG RUN) 1 GM in IV 1 EA IV SCH ×2 (07:48→09:33)
[2023-01-27 08:40] VITALS: BP 141/74
[2023-01-27] MEDS: CHLORHEXIDINE GLUCONATE 0.12 % 15ML UDC (PERIDEX ORAL RINSE) MT SCH ×2 (09:00→19:41)
[2023-01-27] MEDS: cefTRIAXone SOD 1 GM in D5W MINI-BAG PLUS 50 ML IV SCH (09:32)
[2023-01-27] MEDS: NYSTATIN 100,000 UNITS/GM TOPICAL PWD 15GM TOP SCH (09:33)
[2023-01-27] MEDS ORDERED: LORazepam 1 MG TAB PO PRN (12:05)
[2023-01-27] MEDS ORDERED: FLEET ENEMA PR PRN (12:05)
[2023-01-27] MEDS ORDERED: ONDANSETRON 4MG 2ML VIAL IV PRN (12:05)
[2023-01-27] MEDS ORDERED: SCOPOLAMINE 1MG TRANSDERMAL PATCH TOP PRN (12:05)
[2023-01-27] MEDS: BISACODYL 10MG SUPP PR SCH (12:21)
[2023-01-28] MEDS: BISACODYL 10MG SUPP PR SCH (08:22)
[2023-01-28] MEDS: CHLORHEXIDINE GLUCONATE 0.12 % 15ML UDC (PERIDEX ORAL RINSE) MT SCH ×2 (08:22→21:00)
[2023-01-28] MEDS: MORPHINE 10MG/0.5ML ORAL CONCENTRATE SOLUTION U/D SL PRN ×2 (08:23→13:08)
[2023-01-28] MEDS: NYSTATIN 100,000 UNITS/GM TOPICAL PWD 15GM TOP SCH (08:23)
[2023-01-29] MEDS: NYSTATIN 100,000 UNITS/GM TOPICAL PWD 15GM TOP SCH (09:09)
[2023-01-29] MEDS: CHLORHEXIDINE GLUCONATE 0.12 % 15ML UDC (PERIDEX ORAL RINSE) MT SCH ×2 (09:13→19:51)
[2023-01-29] MEDS: BISACODYL 10MG SUPP PR SCH (09:13)
[2023-01-29] MEDS: MORPHINE 10MG/0.5ML ORAL CONCENTRATE SOLUTION U/D SL PRN ×2 (11:18→17:03)
[2023-01-30] MEDS: NYSTATIN 100,000 UNITS/GM TOPICAL PWD 15GM TOP SCH (10:05)
[2023-01-30] MEDS: CHLORHEXIDINE GLUCONATE 0.12 % 15ML UDC (PERIDEX ORAL RINSE) MT SCH ×2 (10:05→22:10)
[2023-01-30] MEDS: BISACODYL 10MG SUPP PR SCH (10:12)
[2023-01-30] MEDS: MORPHINE 10MG/0.5ML ORAL CONCENTRATE SOLUTION U/D SL PRN ×2 (10:29→22:17)
[2023-01-31] MEDS: BISACODYL 10MG SUPP PR SCH (08:56)
[2023-01-31] MEDS: NYSTATIN 100,000 UNITS/GM TOPICAL PWD 15GM TOP SCH (08:56)
[2023-01-31] MEDS: CHLORHEXIDINE GLUCONATE 0.12 % 15ML UDC (PERIDEX ORAL RINSE) MT SCH (08:56)
[2023-01-31] MEDS ORDERED: MORP1SOL5 PO (10:56)
[2023-01-31] MEDS ORDERED: ATIV1TAB10 PO (10:56)
[2023-01-31] MEDS ORDERED: HYOS125TA PO (10:56)
[2023-01-31] MEDS ORDERED: FLEEENE12 PR (10:57)
[2023-01-31] MEDS: MORPHINE 10MG/0.5ML ORAL CONCENTRATE SOLUTION U/D SL PRN (11:51)
== END 2023-01-31 11:53 | DRG 64 ==
LOC: M ED 14:37 → EDBD 14:37 → M ED INP 21:10 → ENRESERV 23:06 → M PCU 01-24 00:19 → M MSPAV 01-27 17:05
PROVIDERS: ADMIT Internal Medicine; ATTEND Student in an Organized Health Care Education/Training Program
DX: I63.9 Cerebral infarction, unspecified (principal); G93.41 Metabolic encephalopathy; L89.153 Pressure ulcer of sacral region, stage 3; N39.0 Urinary tract infection, site not specified; I31.39 Other pericardial effusion (noninflammatory); I50.32 Chronic diastolic (congestive) heart failure; I69.354 Hemiplegia and hemiparesis following cerebral infarction affecting left non-dominant side; E87.20 Acidosis, unspecified; I48.92 Unspecified atrial flutter; I48.91 Unspecified atrial fibrillation; I11.0 Hypertensive heart disease with heart failure; J45.909 Unspecified asthma, uncomplicated; I27.81 Cor pulmonale (chronic); M10.9 Gout, unspecified; I27.20 Pulmonary hypertension, unspecified; E83.42 Hypomagnesemia; I34.0 Nonrheumatic mitral (valve) insufficiency; E78.5 Hyperlipidemia, unspecified; I25.10 Atherosclerotic heart disease of native coronary artery without angina pectoris; E16.2 Hypoglycemia, unspecified; E86.0 Dehydration; D33.0 Benign neoplasm of brain, supratentorial; R62.7 Adult failure to thrive; E87.6 Hypokalemia; Z74.01 Bed confinement status; B96.29 Other Escherichia coli [E. coli] as the cause of diseases classified elsewhere; Z79.899 Other long term (current) drug therapy; Z79.01 Long term (current) use of anticoagulants; Z79.82 Long term (current) use of aspirin; Z66 Do not resuscitate